=== PATIENT | male | born 2005 | race Two or more races ===

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

== ENCOUNTER 2025-01-25 10:25 | Outpatient (OUT) | payer OTHER, SELFPAY ==
--- OUTSIDE RECORDS SUMMARY | 2025-01-25 10:30 | XMS_ITS | Clinical Summary ---
Author Organization [facility] Healthcare Address [address] [place] [address] Care Team Providers Care Health Care Recruiter Name Role Phone Karlie Bianchi MD Primary Care Provider [phone] Allergies No known active allergies Medications tiZANidine (Zanaflex) 2 MG tabletIndication s:Chronic tension-type headache, not intractable Take 1 tablet (2 mg) by mouth Daily 30 tablet 2 10/26/2024 Active Encounters Date Type Department Care Team Description 11/17/2024 Refill [facility] [place] [phone] Leon Ray DO Chronic tension-type headache, not intractable 10/26/2024 9:00 AM EDT Office Visit [facility] [place] [phone] Leon Ray DO Chronic tension-type headache, not intractable (Primary Dx) 10/26/2024 Bamboo flowsheet [facility] [address] [place] [phone] Leon Ray DO from Last 3 Months Social History Tobacco Use Types Packs/Day Years Used Date Smoking Tobacco: Never Assessed Sex and Gender Information Value Date Recorded Sex Assigned at Not on file Legal Sex Male 6:38 PM EDT Gender Identity Not on file Sexual Orientation Not on file Last Filed Vital Signs Vital Sign Reading Time Taken Comments Blood Pressure 110/72 10/26/2024 9:00 AM EDT Pulse 59 10/26/2024 9:00 AM EDT Temperature - - Respiratory Rate - - Oxygen Saturation 96% 10/26/2024 9:00 AM EDT Inhaled Oxygen Concentration - - Weight 82.6 kg (182 lb) 10/26/2024 9:00 AM EDT Height - - Body Mass Index - - Plan of Treatment Health Maintenance Due Date Last Done Comments Influenza Vaccine (#1) 2025 07/18/2006, 2005 Insurance [employer] Care Teams Health Care Recruiter Relationship Specialty Start Date End Date Karlie Bianchi MD [address] [place] [phone] PCP - General Family Medicine 09/08/24
--- NOTE | 2025-01-25 10:45 | ECG_ITS ---
[facility] Test Date: 2025-01-25 Pat Name: ODILIA RICO Department: Room: - Gender: Male Video Coordinator: : 2005 Requested By: [id number] Order Number: [id number] Reading MD: BAHMAN KRAUSE Measurements Intervals [place] Rate: 64 P: 54 MO: 143 QRS: 91 QRSD: 102 T: 41 QT: 355 QTc: 367 Interpretive Statements SINUS RHYTHM BORDERLINE RIGHT AXIS DEVIATION [QRS AXIS > 90] EARLY REPOLARIZATION [ST ELEVATION WITH NORMALLY INFLECTED T WAVE] NONSPECIFIC T-WAVE ABNORMALITY No previous ECG available for comparison Electronically Signed On 01-28-2025 9:44:29 EDT by BAHMAN KRUASE
--- OUTSIDE RECORDS SUMMARY | 2025-01-25 10:46 | XMS_ITS | CCD ---
Author Organization [facility] Care Team Providers Care Construction Helper Name Role Phone DR KARLIE BIANCHI Admitting Unavailable STAN, DR KARLIE Acevedo Attending Unavailable STAN, DR KARLIE Acevedo Primary Care Unavailable DR KARLIE BIANCHI Consulting Unavailable AICHHOLZ, FACILITY MAINTENANCE HELPER ANGEL Admitting Unavailable AICHHOLZ, FACILITY MAINTENANCE HELPER ANGEL Attending Unavailable STAN, DR KARLIE Acevedo Primary Care Unavailable AICHHOLZ, FACILITY MAINTENANCE HELPER ANGEL Consulting Unavailable AICHHOLZ, FACILITY MAINTENANCE HELPER ANGEL Admitting Unavailable AICHHOLZ, FACILITY MAINTENANCE HELPER ANGEL Attending Unavailable STAN, DR KARLIE Acevedo Primary Care Unavailable STAN, DR KARLIE Acevedo Admitting Unavailable STAN, DR KARLIE Acevedo Attending Unavailable STAN, DR KARLIE Acevedo Primary Care Unavailable Karlie Bianchi Unavailable Daily Nagel Unavailable Karlie Bianchi MD Primary Care Provider MAMIE RAY Attending Unavailable KARLIE BIANCHI Referring Unavailable Marin LAU-HYDROLOGIC ENGINEER-Elif Soto Attending Provider Karlie Bianchi MD Primary Care Provider [phone] Karlie Bianchi MD Attending Provider [phone] Allergies Allergy Classification Reported Allergen(s) Allergy Type Date of Onset Reaction(s) Facility (2 sources) patient allergy list reviewed by nurse or physicia Propensity to adverse reactions 9 Comment:Done [facility] Other (2 sources) Allergies Reconciled Propensity to adverse reactions Unknown [facility] Other Medications Current Medications Medication Drug Class(es) Dates Sig (Normalized) Sig (Original) amitriptyline hydrochloride 10 mg oral tablet (2 sources) Tricyclic Antidepressant Start: 01-10-2025 take 1 tablet by mouth once daily at bedtime Amitriptyline 10 mg tablet Active 10 MG PO Daily at bedtime January 10, 2025 12:00am Complies with drug therapy azithromycin 250 mg oral tablet (1 source) [...] Orally daily for 30 days November, Active tiZANidine 4 mg oral tablet (5 sources) Central alpha-2 Adrenergic Agonist Start: 01-24-2025 take 1 tablet by mouth every eight hours as needed Tizanidine 4 mg tablet Active 4 MG PO Every 8 hours as needed January 24, 2025 12:00am Complies with drug therapy Start: 10-26-2024 End: 01-24-2025 Tizanidine 2 mg tablet Disco ntinued 2 MG PO January 10, 2025 12:00am January 10, 2025 10:26am Completed/Discontinued Medications Medication Drug Class(es) Dates Sig (Normalized) Sig (Original) atomoxetine 25 mg oral capsule (19 sources) Norepinephrine Reuptake Inhibitor Start: 12-24-2023 End: 03-18-2024 take 1 capsule by mouth once daily Atomoxetine 25 mg capsule Discontinued 0 .ROUTE .COMPLEX January 23, 2024 1:03pm March 18, 2024 9:12am TAKE 1 CAPSULE BY MOUTH EVERY DAY Start: 08-28-2023 End: 12-24-2023 take 1 tablet by mouth once daily Atomoxetine 25 mg capsule Discontinued 1 TAB PO Daily August 28, 2023 1:00am December 24, 2023 1:04pm [employer] tablet once a day; Note: Source Status: Continue; Provider: Stan Ziegler ( ) take 1 capsule by [facility] every twenty-four hours Strattera 25 MG 1 tablet once a day Active escitalopram 5 mg oral tablet (5 sources) Serotonin Reuptake Inhibitor Start: 03-18-2024 End: 06-01-2024 take 1 tablet by mouth once daily Escitalopram Oxalate (Lexapro) 5 mg tablet Discontinued 5 MG PO Daily March 18, 2024 12:00am June 01, 2024 10:27am ketoconazole 20 mg/ml medicated shampoo (8 sources) Azole Antifungal Start: 03-17-2024 End: 06-01-2024 Ketoconazole 2 % shampoo Discontinued TOPICAL March 17, 2024 12:00am June 01, 2024 10:27am [employer]: APPLY TO AFFECTED AREA THREE TIMES A WEEK; Note: Source Status: Start; Refills: 0; Qty: 120 Milliliter; Provider: Stan Ziegler ( ) Start: 10-25-2022 Ketoconazole 2 % 1 application Externally 3x/week for 28 days Oct, Active Ketoconazole 2 % APPLY TO AFFECTED AREA 3 TIMES A WEEK for 28 Active Ketoconazole 2 % APPLY TO AFFECTED AREA 3 TIMES A WEEK for 28 Active meloxicam 15 mg oral tablet (3 sources) Nonsteroidal Anti-inflammatory Drug Start: 09-02-2024 End: 01-10-2025 take 1 tablet by mouth once daily Meloxicam 15 mg tablet Discontinued 15 MG PO Daily September 02, 2024 1:00am January 10, 2025 9:52am traZODone hydrochloride 50 mg oral tablet (7 sources) Serotonin Reuptake Inhibitor Start: 03-17-2024 End: 03-18-2024 take 1 tablet by mouth once daily at bedtime Trazodone 50 mg tablet Discontinued 50 MG PO Daily at bedtime March 17, 2024 12:00am March 18, 2024 9:11am [employer] tablet at bedtime as needed Orally Once a day; Note: Source Status: Start; Provider: Stan Acevedo Start: 07-21-2023 take 1 tablet by yulissa th every twenty-four hours traZODone HCl 50 MG 1 tablet at bedtime as needed Orally Once a day for 30 day(s) Jul, Active Problems Active Problems Problem Classification Problem Date Documented Da te Episodic/Chronic Administrative/social admission (4 sources) Patient encounter status; Translations: [Persons encountering health services in other specified circumstances] 01-10-2025 Episodic Anxiety disorders (14 sources) Generalized anxiety disorder; Translations: [Generalized anxiety disorder] 03-18-2024 Chronic Attention-deficit, conduct, and disruptive behavior disorders (13 sources) Attention deficit hyperactivity disorder; Translations: [Attention-deficit hyperactivity disorder, unspecified type] Onset: 03-30-2015 03-18-2024 Chronic Attention-deficit, conduct, and disruptive behavior disorders (4 sources) Attention-deficit hyperactivity disorder, unspecified type; Translations: [Attention deficit disorder with hyperactivity] Chronic Chronic obstructive pulmonary disease and bronchiectasis (1 source) Bronchitis, not specified as acute or chronic Episodic Fever of unknown origin (7 sources) Fever, unspecified; Translations: [Fever] Onset: 06-13-2021 Episodic Headache; including migraine (10 sources) Tension-type headache; Translations: [Tension-type headache, unspecified, not intractable] 09-02-2024 Chronic Influenza (1 source) Influenza due to other [...] Translations: [Olecranon bursitis, left elbow] Episodic Other connective tissue disease (4 sources) Muscle spasm of cervical muscle of neck; Translations: [Other muscle spasm] 06-01-2024 Episodic Other connective tissue disease (1 source) Other muscle spasm; Translations: [Spasm of muscle] 06-01-2024 Episodic Other gastrointestinal disorders (5 sources) Constipation; Translations: [Constipation, unspecified] 08-28-2023 Episodic Other gastrointestinal disorders (1 source) Constipation, unspecified; Translations: [Constipation, unspecified] 06-01-2024 Episodic Other injuries and conditions due to [...] Observations : NORMAL RESPIRATORY ZACHARY. Normal [facility] Comment on above: Performed By: #### T HRTCX #### [facility] [address] [address] [address] Paloma Roldan Covid-19 PCR (CVDTB)on SARS-CoV-2 (COVID-19) RNA SOHAN+probe Ql (Unsp spec) Not detected Normal NOT DETECTED [facility] Comment on above: Result Comment: This test is not yet approved or cleared by the [place] FDA. When there are no FDA-approved or cleared tests available, and other criteria are met, FDA can make tests available under an emergency access mechanism called an Emergency Use Authorization (EUA). The EUA for this test is supported by the [place] of Health and Human Service's (HHS's) declaration [...] SARS-CoV-2. Performed By: #### C VDTBH #### [facility] [address] [place], [place] [address] Dr. Paloma Roldan Covid-19 PCR (CVDTB)on 05-16 SARS-CoV-2 (COVID-19) RNA SOHAN+probe Ql (Unsp spec) Not detected Normal NOT DETECTED [facility] Comment on above: Result Comment: This test is not yet approved or cleared by the [place] FDA. When there are no FDA-approved or cleared tests available, and other criteria are met, FDA can make tests available under an emergency access mechanism called an Emergency Use Authorization (EUA). The EUA for this test is supported by the [place] of Health and Human Service's (HHS's) declaration [...] consistent with SARS-CoV-2. Performed By: #### C [facility] #### [facility] [address] [place] [address] Dr. Paloma Roldan Vital Signs Date Time Vital Sign Value Performing Clinician Jailenei lity 01-24-2025 14:37-0400 Body height 187.96 cm Karlie Bianchi MD Work Phone: [facility] 01-24-2025 14:37-0400 Body mass index (BMI) [Percentile] Per age and sex 49.6 % Karlie Bianchi MD Work Phone: [facility] 01-24-2025 14:37-0400 Body mass index (BMI) [Ratio] 22.7 kg/m2 Karlie Bianchi MD Work Phone: [facility] 01-24-2025 14:37-0400 Body weight 80.28 kg Karlie Bianchi MD Work Phone: [facility] 01-24-2025 14:37-0400 Diastolic blood pressure 70 mm[Hg] Karlie Bianchi MD Work Phone: [facility] 01-24-2025 14:37-0400 Heart rate 78 /min Karlie Bianchi MD Work Phone: [facility] 01-24-2025 14:37-0400 Systolic blood pressure 109 mm[Hg] Karlie Bianchi MD Work Phone: [facility] 01-10-2025 09:46-0400 Body height 187.96 cm Karlie Bianchi MD Work Phone: [facility] 01-10-2025 09:46-0400 Body mass index (BMI) [Percentile] Per age and sex 49.9 % Karlie Bianchi MD Work Phone: [facility] 01-10-2025 09:46-0400 Body mass index (BMI) [Ratio] 22.7 kg/m2 Karlie Bianchi MD Work Phone: [facility] 01-10-2025 09:46-0400 Body weight 80.28 kg Karlie Bianchi MD Work Phone: [facility] 01-10-2025 09:46-0400 Diastolic blood pressure 70 mm[Hg] Karlie Bianchi MD Work Phone: [facility] 01-10-2025 09:46-0400 Heart rate 55 /min Karlie Bianchi MD Work Phone: [facility] 01-10-2025 09:46-0400 Respiratory rate 16 /min Karlie Bianchi MD Work Phone: [facility] 01-10-2025 09:46-0400 SaO2% (BldA) [Mass fraction] 98 % Karlie Bianchi MD Work Phone: [facility] 01-10-2025 09:46-0400 Systolic blood pressure 110 mm[Hg] Karlie Bianchi MD Work Phone: [facility] 10-26-2024 09:00-0400 Body weight 82.56 kg Christopher Flor DO Work Phone: [facility] 10-26-2024 09:00-0400 Diastolic blood pressure 72 mm[Hg] Christopher Flor DO Work Phone: [facility] 10-26-2024 09:00-0400 Heart rate 59 /min Christopher Flor DO Work Phone: [facility] 10-26-2024 09:00-0400 SaO2% (BldA) [Mass fraction] 96 % Christopher Flor DO Work Phone: [facility] 10-26-2024 09:00-0400 Systolic blood pressure 110 mm[Hg] Christopher Flor DO Work Phone: [facility] 09-02-2024 10:13-0500 Body height 187.96 cm [facility] 09-02-2024 10:13-0500 Body mass index (BMI) [Percentile] Per age and sex 47.2 % [facility] 09-02-2024 10:13-0500 Body mass index (BMI) [Ratio] 22.3 kg/m2 [facility] 09-02-2024 10:13-0500 Body weight 78.92 kg [facility] 09-02-2024 10:13-0500 Diastolic blood pressure 75 mm[Hg] [facility] 09-02-2024 10:13-0500 Heart rate 71 /min [facility] 09-02-2024 10:13-0500 Systolic blood pressure 110 mm[Hg] [facility] 06-01-2024 09:14-0500 Body height 187.96 cm [facility] 06-01-2024 09:14-0500 Body mass index (BMI) [Percentile] Per age and sex 61.8 % [facility] 06-01-2024 09:14-0500 Body mass index (BMI) [Ratio] 23.3 kg/m2 [facility] 06-01-2024 09:14-0500 Body weight 82.55 kg [facility] 06-01-2024 09:14-0500 Diastolic blood pressure 71 mm[Hg] [facility] 06-01-2024 09:14-0500 Heart rate 70 /min [facility] 06-01-2024 09:14-0500 Systolic blood pressure 119 mm[Hg] [facility] 03-18-2024 09:07-0400 Body height 187.96 cm [facility] 03-18-2024 09:07-0400 Body mass index (BMI) [Percentile] Per age and sex 58.6 % [facility] 03-18-2024 09:07-0400 Body mass index (BMI) [Ratio] 22.9 kg/m2 [facility] 03-18-2024 09:07-0400 Body weight 81.19 kg [facility] 03-18-2024 09:07-0400 Diastolic blood pressure 76 mm[Hg] [facility] 03-18-2024 09:07-0400 Heart rate 73 /min [facility] 03-18-2024 09:07-0400 Systolic blood pressure 117 mm[Hg] [facility] 08-28-2023 09:45-0500 Body height 187.96 cm [facility] 08-28-2023 09:45-0500 Body mass index (BMI) [Percentile] Per age and sex 55.5 % [facility] 08-28-2023 09:45-0500 Body mass index (BMI) [Ratio] 22.3 kg/m2 [facility] 08-28-2023 09:45-0500 Body weight 78.92 kg [facility] 08-28-2023 09:45-0500 Diastolic blood pressure 72 mm[Hg] [facility] 08-28-2023 09:45-0500 Heart rate 65 /min [facility] 08-28-2023 09:45-0500 Systolic blood pressure 109 mm[Hg] [facility] 08-21-2023 09:30-0500 Body height 187.96 cm Daily Nagel Other [employer] [facility] [employer] Other 08-21-2023 09:30-0500 Body mass index (BMI) [Ratio] 22.85 kg/m2 Daily Nagel Other [facility] Other 08-21-2023 09:30-0500 Body weight 80.74 kg Daily Nagel Other [facility] Other 08-21-2023 09:30-0500 Diastolic blood pressure 72 mm[Hg] Daily Nagel Other [employer] Other 08-21-2023 09:30-0500 SaO2% (BldA) [Mass fraction] 96 % Daily Nagel Other [facility] [employer] Other 08-21-2023 09:30-0500 Systolic blood pressure 112 mm[Hg] Daily Shona Other [employer] Other 07-21-2023 08:30-0500 Body height 187.96 cm Karlie Bianchi Other [facility] 07-21-2023 08:30-0500 Body mass index (BMI) [Ratio] 22.98 kg/m2 Karlie Bianchi Other [facility] [employer] Other 07-21-2023 08:30-0500 Body weight 81.19 kg Karlie Bianchi Other [facility] 07-21-2023 08:30-0500 Diastolic blood pressure 74 mm[Hg] Karlie Bianchi Other [facility] 07-21-2023 08:30-0500 Systolic blood pressure 116 mm[Hg] Karlie Bianchi Other [facility] 11-13-2022 09:30-0400 Body height 186.69 cm Karlie Bianchi Other [facility] [employer] Other 11-13-2022 09:30-0400 Body mass index (BMI) [Ratio] 22.77 kg/m2 Karlie Bianchi Other [facility] [employer] Other 11-13-2022 09:30-0400 Body weight 79.38 kg Karlie Bianchi Other [facility] Other 11-13-2022 09:30-0400 Diastolic blood pressure 72 mm[Hg] Karlie Bianchi Other [employer] Other 11-13-2022 09:30-0400 SaO2% (BldA) [Mass fraction] 98 % Karlie Bianchi Other [employer] Other 11-13-2022 09:30-0400 Systolic blood pressure 108 mm[Hg] Karlie Bianchi Other [facility] Other 09-04-2022 10:00-0500 Body height 186.69 cm Karlie Bianchi Other [employer] Other 09-04-2022 10:00-0500 Body mass index (BMI) [Ratio] 22.25 kg/m2 Karlie Bianchi Other [facility] Other 09-04-2022 10:00-0500 Body weight 77.57 kg Karlie Bianchi Other [facility] Other 09-04-2022 10:00-0500 Diastolic blood pressure 60 mm[Hg] Karlie Bianchi Other [facility] Other 09-04-2022 10:00-0500 Systolic blood pressure 102 mm[Hg] Karlie Bianchi Other [facility] Other Encounters Encounter Date Encounter Type Care Provider Facility Start: 01-24-2025 End: 01-24-2025 ambulatory Karlie Bianchi MD Work Phone: [facility] Work Phone: Start: 01-24-2025 End: 01-24-2025 Patient encounter procedure Karlie Bianchi MD -[facility] Work Phone: Start: 01-10-2025 End: 01-10-2025 ambulatory Karlie Bianchi MD Work Phone: [facility] Work Phone: Start: 01-10-2025 End: 01-10-2025 Patient encounter procedure Elif Funes RETAIL EVENT AND SALES ASSISTANT-HYDROLOGIC ENGINEER- -[facility] Work Phone: Start: 10-26-2024 End: 10-26-2024 Bamboo flowsheet Christopher Flor DO Work Phone: [facility] Start: 10-26-2024 End: 10-26-2024 Bamboo flowsheet Christopher Flor DO Work Phone: [facility] Start: 10-26-2024 End: 10-26-2024 Office outpatient new 45 minutes Nadeemer Flor DO Work Phone: [facility] Comment on above: Chronic tension-type headache, not intractable (Primary Dx) Start: 10-26-2024 End: 10-26-2024 ambulatory MAMIE RAY Not Available Start: 09-02-2024 End: 09-02-2024 ambulatory [facility] Work Phone: Start: 09-02-2024 End: 09-02-2024 Patient encounter procedure [facility] Work Phone: Start: 06-01-2024 End: 06-01-2024 ambulatory [facility] Work Phone: Start: 06-01-2024 End: 06-01-2024 Patient encounter procedure [facility] Work Phone: Start: 03-18-2024 End: 03-18-2024 ambulatory [facility] Work Phone: Start: 03-18-2024 End: 03-18-2024 Patient encounter procedure [facility] Work Phone: Start: 08-28-2023 End: 08-28-2023 ambulatory [facility] Work Phone: Start: 08-28-2023 End: 08-28-2023 Patient encounter procedure [facility] Work Phone: Start: 08-21-2023 End: 08-21-2023 ambulatory Daily Nagel Other [employer] Other Start: 08-21-2023 Office outpatient visit 15 minutes Daily Nagel [facility] Start: 07-21-2023 End: 07-21-2023 ambulatory Karlie Bianchi Other [facility] Other Start: 07-21-2023 Office outpatient visit 15 minutes Karlie Bianchi [facility] Start: 07-21-2023 End: 07-21-2023 Patient encounter procedure [facility] Work Phone: Start: 06-09-2023 End: 06-09-2023 ambulatory Karlie Bianchi Other [facility] Other Start: 06-09-2023 Telephone encounter Karlie Bianchi [facility] Start: 11-13-2022 End: 11-13-2022 ambulatory Karlie Bianchi Other [facility] Other Start: 11-13-2022 Office outpatient visit 15 minutes Karlie Bianchi [facility] Start: 09-04-2022 End: 09-04-2022 ambulatory Karlie Bianchi Other [facility] Other Start: 09-04-2022 Office outpatient visit 15 minutes Karlie Bianchi [facility] Start: 05-07-2022 End: 05-30-[address] KARLIE BIANCHI Facility:[facility] Start: 05-02-2022 Child health medical examination Karlie Bianchi Other [facility] Other Start: 05-02-2022 Well child visit Karlie Bianchi Other [facility] Other Start: 06-13-2021 End: 06-13-2021 ambulatory MOI TREJO Facility:[facility] Start: 06-12-2021 End: 06-12-[address] KARLIE BIANCHI Facility:[facility] Procedures Date Procedure Procedure Detail Performing Clinician Depression screening Karlie Bianchi Other Plan of Treatment Date Care Activity Detail Author Start: 03-14-2025 Influenza vaccination Influenz a Vaccine (Season Ended) [facility] Start: 01-10-2025 End: 01-10-2025 Patient encounter procedure 01/10/2025 9:40 AM EDT Office Visit [facility] [address] [place] [address] Elif Funes NP [address] [place] [phone] [facility] Start: 10-26-2024 End: 10-26-2024 Patient encounter procedure 10/26/2024 9:00 AM EDT Office Visit [facility] [address] [phone] Mamie Ray DO [address] [place] [id number] Arrived [facility] Comment on above: Arrived EKG 12 channel panel [facility] Immunizations Immunization Date Immunization Notes Care Provider Fa cili 05-05-2021 COVID-19 Vaccine Pfizer - Documentation Purposes Only Karlie Bianchi Other [facility] 07-18-2006 influenza virus vaccine, unspecified formulation Mamie Ray DO Work Phone: [facility] Healthcare Payers Date Payer Category Payer Medicaid (Managed Care) [employer] [id number] 2005 Unknown [id number] 1973 Unknown [id number] 1973 Unknown [id number] 1973 Unknown [id number] 1973 Unknown [id number] 1959 Unknown [id number] 1959 Unknown [id number] Unknown Other1 (STD) [id number] Social History Date Type Detail Facility Unknown if ever smoked [facility] [employer] Other Sex Assigned At [employer] [facility] [employer] Other Start: 2005 Sex Assigned At Male F [facility] Start: 03-18-2024 End: 03-18-2024 Tobacco smoking status DCIS Never smoked tobacco (finding) [facility] Start: 06-01-2024 End: 09-02-2024 Sex Male (finding) [facility] Tobacco smoking status [facility] Tobacco smoking consumption unknown [facility] Start: 2005 Sex assigned at Not on file [facility] Clinical Notes 09-04-2022 to 01-10-2025 Note Date & Type Note Facility 01-10-2025 Evaluation note Diagnosis Onset Date Resolution Encounter prior to initiation of medication acute January 10, 2025 9:41am Chronic tension-type headache, not intractable chronic January 10, 2025 9:41am [facility] Work Phone: 1(221) 760-833504-15-2025 History of Present illness Narrative* Mamie Ray DO - 10/26/2024 9:00 AM EDT Images from the original note were not included. Chief Complaint: tension type headache Subjective Compa Jean, 19 y.o., male Patient presents today for a neurologic consult at the request of Dr. Bianchi for tension type headache. Patient reports he has been having headaches for about 5 months. He reports these are daily. These come on typically in the afternoon. These are located on his forehead and back of the head. At times these can radiate down his neck. He denies any sound sensitivity, nausea, dizziness or imbalance. He does report associated light sensitivity and lightheadedness. He was using tylenol and ibuprofen with little relief. He was prescribed something but he is unsure the name and he stopped taking that. He denies nay imaging of the head in the past. Review of Systems Constitutional: Negative for appetite change, fatigue and fever. Respiratory: Negative for cough, shortness of breath and wheezing. Cardiovascular: Negative for chest pain, palpitations and leg swelling. Gastrointestinal: Negative for abdominal pain, constipation, diarrhea and nausea. Musculoskeletal: Negative for arthralgias, gait problem and myalgias. Neurological: Positive for headaches. Negative for dizziness, tremors and numbness. No past medical history on file. No past surgical history on file. No family history on file. Social History Tobacco Use Smoking status: Not on file Smokeless tobacco: Not on file Substance Use Topics Alcohol use: Not on file Allergies: Patient has no known allergies. Vitals: 10/26/24 0900 BP: 110/72 Pulse: 59 SpO2: 96% There is no height or weight on file to calculate BMI. weight: 182 lb Neurologic exam: Mental status: Awake, alert to person, place and time. Recent and remote memory are intact. Language is fluent without aphasia. Attention and concentration are normal. Fund of knowledge is appropriate for level of education. Cranial nerves: CN II: Visual acuity is normal. Visual amador full to confrontation. CN III, IV, : pupils equal round and reactive to light. Extraocular movements intact. No ptosis present. CN V: Facial sensation is normal. CN VII: Full and symmetric facial movement. CN VIII: Hearing is normal to finger rub bilaterally: CN IX and X: Palate elevates symmetrically. CN XI: Shoulder shrug is normal bilaterally. CN XII: Tongue is midline without atrophy or fasciculation. Motor: RUE Strength deltoid, , biceps , triceps , wrist extensors , wrist flexor , paint roller assembler strength 5/5. LUE Strength deltoid , biceps , triceps , wrist extensors , wrist flexor , paint roller assembler strength 5/5. RLE Strength illopsoas, quadriceps, tibialis anterior, and gastrocnemius strength 5/5. LLE Strength illopsoas, quadriceps, tibialis anterior, and gastrocnemius strength 5/5. Normal tone x4 extremities. Bulk is normal. Sensory: Sensation is intact to light touch throughout Four extremities. Reflexes: RUE biceps reflex 2+ brachioradialis reflex 2+ . LUE biceps reflex 2+ brachioradialis reflex 2+ . RLE knee reflex 2+ . LLE knee reflex 2+ . Miner's sign negative. Coordination: Htimus-ll-cthy testing and rapid alternating movements are normal Gait: Normal Review and summary of old records: Assessment/Plan Diagnoses and all orders for this visit: Chronic tension-type headache, not intractable It is my impression that the patient has headaches. These seem to affect his neck shoulders and sometimes the bilateral frontal head region. He does have some occasional light sensitivity but these really do not appear to be definitively migrainous. He does notice that the muscle tension appears sary a major issue for him. He has trialed some physical therapy without relief. He has trialed meloxicam and Tylenol without relief. He would like to try further intervention as it relates to muscle tension. Examination unremarkable. Plan: Start tizanidine 2 mg 1 tablet p.o. daily p.r.n. muscle tension. We have discussed the side effectsin detail. Patient understands and wishes to proceed. If this is not successful, we may trial a migraine preventative for him. Pt has been fully educated on their diagnosis, lab results, treatment options, follow up plan, and return instructions documented in this encounterFreeman Health [id number] Evaluation note* Diagnosis Onset Date Resolution Status Admit Date ADHD acute March 18, 2024 9:04am Anxiety, generalized acute Sept 2023 9:04am Constipation acute May 9:12am Trapezius muscle spasm acute No vember 2023 9:12am [facility] Work Phone: [phone]) 810-554002-08-2024 Evaluation note* Encounter Date Diagnosis Assessment Notes Treatment Notes Treatment Clinical Notes Aug, Type B influenza (ICD-10 - J10.1) The patient was seen today for ER/Urgent Care follow-up. All available records were reviewed and discussed with the patient. All new medications prescribed were reviewed. Any additional changes are noted above. Course of influenza discussed with patient. Tamiflu discussed with patient and grandmother, that he is out of the window. No work/school/sports 5-7 days due to the highly contagious nature of illness. No school until afebrile/asymptoma tic x24 hours. Discussed supportive therapy with hydration, [...] symptoms. Pt and his grandmother verbalize understanding. 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 Agrees to try trazodone. Jul, ADHD (ICD-10 - F90.9) Pt considering d/c strattera after basketball season if problem w insomnia continues. Otherwise it is helping w his concentration well. [employer] Other 05-03-2023 Evaluation note* Encounter Date Diagnosis Assessment Notes Treatment Notes Treatment Clinical Notes November, ADHD (ICD-10 - F90.9) Agree with stopping strattera as he had significant side effects including anxiety and insomnia. Offered low dose stimulant med as the end of the school year is in 3 weeks. Mom is hesitant to start a controlled substance med, requests a med like strattera. Will start w lowest dose of Intuniv. [employer] Other 02-22-2023 Evaluation note* Encounter Date Diagnosis Assessment Notes Treatment Notes Treatment Clinical Notes Aug, Insomnia disorder related to known [...] should not increase is anxiety or insomnia. [employer] Other Evaluation noteNo InformationNort [employer] Other Evaluation noteNo assessment information available [facility] Work Phone: Evaluation note* Diagnosis Onset Date Resolution Status Admit Date Tension type headache acute Aug 9:57am [facility] Work Phone: Evaluation note* Diagnosis Chronic tension-type headache, not intractable- Primary Chronic tension type headache [facility] Diagnosis Onset Date Resolution Status Admit Date Encounter prior to initiatio n of medication acute January 10, 2025 9:41am Chronic tension-type headach e, not intractable chronic January 10, 2025 9:41am [facility] Work Phone: History general Narrative - Reported* Type Description Date Medical History ADHD Medical History Olecranon bursitis, left elbow Medical History Anxiety, generalized [employer] Other [facility] general Narrative - Reported* Type Description Date Medical History ADHD Medical History Olecranon bursitis, left elbow Medical History Anxiety, generalized Surgical History Problem Title : past surgical history reviewed, Problem Description : past surgical history reviewed, Problem Comment : reviewed - no changes required, Problem Status : Active, [employer] Other [facility] general Narrative - Reported* Type Description Date Medical History ADHD Medical History Olecranon bursitis, left elbow Medical History Anxiety, generalized Surgical History No Surgical history information [employer] Other Reason for referral (narrative)No reason for referral information availableJ.W. [facility] Work Phone: Reoihg for visit Narrative* Consultation (Routine) - Closed Specialty Diagnoses / Procedures Referred By Contzaina t Referred To Contact Neurology Diagnoses Headache, unspecified Tension-type headache, unspecified, not intractable Procedures SD OFFICE/OUTPATIENT NEW LOW MDM 30 MINUTES Karlie Bianchi MD Phone: tel: fax: Mamie Ray, DO [address] [address] Phone: tel: fax: Referral ID Status Reason Start Date Expiration Date V isits Requested Visits Authorized [id number] Closed Consult and Treat 09/07/2024 03/06/2025 1 1 [facility] Summary Purpose Family History No Family History Records FoundNo Family History Records Found Advance Directives Advance Directive Response Recorded Date/ Time Advance Directives No August 8:43am Advance Directive Response Recorded Date/ Time Advance Directives No August 9:43am Chief Complaint and Reason for Visit Chief Complaint Admit Date 2 month f/u January 10, 2025 9:41 am Neuro f/u January 24, 2025 2:13 pm Reason for Visit Admit Date Encounter prior to initiation of medicat ion January 10, 2025 9:41am Chronic tension-type headache, not intra ctable January 10, 2025 9:41am Chief Complaint Anxiety, Insomnia Constipated Chief Complaint Anxiety Chief Complaint Admit Date Anxiety March 18, 2024 9:04am headache, stomach pain June 01 9:12am Reason for Visit Admit Date ADHD March 18, 2024 9:04am Anxiety, generalized March 18, 2024 9:04am Constipation June 01, 2024 9:12am Trapezius muscle spasm June 01 9:12am Chief Complaint Admit Date headache/migraines September 02, 2024 9:57am Reason for Visit Admit Date Tension type headache September 02 9:57am Chief Complaint Admit Date 2 month f/u January 10, 2025 9:41 am Reason for Visit Admit Date Encounter prior to initiation of medicat ion January 10, 2025 9:41am Chronic tension-type headache, not intra ctable January 10, 2025 9:41am Chief Complaint Admit Date 2 month f/u January 10, 2025 9:41 am Neuro f/u January 24, 2025 2:13 pm Additional Source Comments (unrecognized sect ion and content) No Status Records FoundNo Status Records Found INFORMATION SOURCE (unrecogn ized section and content) DATE CREATED AUTHOR 06/05/2022 [facility] DATE CREATED AUTHOR AUTHOR'S ORGANIZ ATION 10/27/2024 [facility] EPIC REASON FOR VISIT (unrecogniz ed section and content) Check UpMedication Discussio nrefillAnxiety, Insomniafever, headache, vomitting, COVID Negative Care Teams (unrecognized sec tion and content) Team Status: Active Member Role Status Dates Karlie Bianchi MD Primary Care Provider Active Team Status: Inactive Member Role Status Dates Karlie Bianchi MD Attending Provider Active St art: July 21, 2023 End: July 21, 2023 Team Status: Inactive Member Role Status Dates Karlie Bianchi MD Primary Care Provide r, Attending Provider Active Start: August 28, 2023 End: August 28, 2023 Team Status: Inactive Member Role Status Dates Karlie Bianchi MD Primary Care Provide r, Attending Provider Active Start: March 18, 2024 End: March 18, 2024 Team Status: Inactive Member Role Status Dates Karlie Bianchi MD Primary Care Provide r, Attending Provider Active Start: June 01, 2024 End: June 01, 2024 Team Status: Inactive Member Role Status Dates Karlie Bianchi MD Primary Care Provide r, Attending Provider Active Start: September 02, 2024 End: September 02, 2024 Construction Helper Relationship Specialty Start Date End Date Karlie Bianchi MD [address] [place] [address] PCP - General Family Medicine 09/08/24 Construction Helper Relationship Specialty Start Date End Date Karlie Bianchi MD [address] [place] [id number] PCP - General Family Medicine 09/08/24 Team Status: Inactive Member Role Status Dates MARIA A Perez Attending Provider Active Start: January 10, 2025 End: January 10, 2025 Karlie Bianchi MD Primary Care Provider Active Start: January 10, 2025 End: January 10, 2025 Team Status: Inactive Member Role Status Dates Karlie Bianchi MD Primary Care Provider Active Start: January 24, 2025 End: January 24, 2025 Karlie Bianchi MD Attending Provider Active St art: January 24, 2025 End: January 24, 2025 Goals (unrecognized section and content) Goals may be documented in a n alternate section FOR RECORDS PERTAINING TO PATIENTS WHO ARE [...] BE BASED ON THE PRIMARY CLINICAL RECORDS. [employer] provides no warranty or guarantee of the accuracy or completeness of information in this document.
== END 2025-01-25 10:26 | disposition home or self-care (01) ==
LOC: CR 10:28
PROVIDERS: PCP Family Medicine; Visit Provider Nurse Practitioner Family
DX: Z76.89 Persons encountering health services in other specified circumstances (principal)
CPT/HCPCS: 93005

== ENCOUNTER 2025-01-30 10:41 | Emergency (ER) | payer OTHER, SELFPAY ==
[2025-01-30 10:45] VITALS: BP 147/85; PULSE 84; TEMP 37; O2SAT 100; BMI 22.5
--- OUTSIDE RECORDS SUMMARY | 2025-01-30 10:54 | XMS_ITS | CCD ---
Author Organization [facility] Care Team Providers Care Global Cto Name Role Phone DR KARLIE BIANCHI Admitting Unavailable STAN, DR KARLIE Acevedo Attending Unavailable STAN, DR KARLIE Acevedo Primary Care Unavailable DR KARLIE BIANCHI Consulting Unavailable AICHHOLZ, AGRONOMY SPECIALIST ANGEL Admitting Unavailable AICHHOLZ, AGRONOMY SPECIALIST ANGEL Attending Unavailable STAN, DR KARLIE Acevedo Primary Care Unavailable AICHHOLZ, AGRONOMY SPECIALIST ANGEL Consulting Unavailable AICHHOLZ, AGRONOMY SPECIALIST ANGEL Admitting Unavailable AICHHOLZ, AGRONOMY SPECIALIST ANGEL Attending Unavailable STAN, DR KARLIE Acevedo Primary Care Unavailable STAN, DR KARLIE Acevedo Admitting Unavailable STAN, DR KARLIE Acevedo Attending Unavailable STAN, DR KARLIE Acevedo Primary Care Unavailable Karlie Bianchi Unavailable Daily Nagel Unavailable Karlie Bianchi MD Primary Care Provider [phone] MAMIE RAY Attending Unavailable KARLIE BIANCHI Referring Unavailable Marin LAU-COLORER MACHINE-Elif Soto Attending Provider Karlie Bianchi MD Primary Care Provider Karlie Bianchi MD Attending Provider Allergies Allergy Classification Reported Allergen(s) Allergy Type Date of Onset Reaction(s) Facility (2 sources) patient allergy list reviewed by nurse or physicia Propensity to adverse reactions 9 Comment:Done [employer] Other (2 sources) Allergies Reconciled Propensity to adverse reactions Unknown [employer] Other Medications Current Medications Medication Drug Class(es) [...] Ziegler ( ) take 1 capsule by [facility] every twenty-four hours Strattera 25 MG 1 [...] Observations : NORMAL RESPIRATORY ZACHARY. Normal The [facility] Comment on above: Performed By: #### T HRTCX #### [facility] [address] [address] [address] Paloma Roldan Covid-19 PCR (CVDTB)on SARS-CoV-2 (COVID-19) RNA SOHAN+probe Ql (Unsp spec) Not detected Normal NOT DETECTED [facility] Comment on above: Result Comment: This test is not yet approved or cleared by the [place] FDA. When there are no FDA-approved or cleared tests available, and other criteria are met, FDA can make tests available under an emergency access mechanism called an Emergency Use Authorization (EUA). The EUA for this test is supported by the [place] of Health and Human Service's (HHS's) declaration [...] SARS-CoV-2. Performed By: #### C VDTBH #### [facility] [address] [place], [place] [address] Dr. Paloma Roldan Covid-19 PCR (CVDTB)on 05-16 SARS-CoV-2 (COVID-19) RNA SOHAN+probe Ql (Unsp spec) Not detected Normal NOT DETECTED [facility] Comment on above: Result Comment: This test is not yet approved or cleared by the [place] FDA. When there are no FDA-approved or cleared tests available, and other criteria are met, FDA can make tests available under an emergency access mechanism called an Emergency Use Authorization (EUA). The EUA for this test is supported by the [place] of Health and Human Service's (HHS's) declaration [...] consistent with SARS-CoV-2. Performed By: #### C [facility] #### [facility] [address] [place] [address] Dr. Paloma Roldan Vital Signs Date Time Vital Sign Value Performing Clinician Jailenei lity 01-24-2025 14:37-0400 Body height 187.96 cm Karlie Bianchi MD Work Phone: [facility] 01-24-2025 14:37-0400 Body mass index (BMI) [Percentile] Per age and sex 49.6 % Karlie Bianchi MD Work Phone: [facility] 01-24-2025 14:37-0400 Body mass index (BMI) [Ratio] 22.7 kg/m2 Karlie Bianchi MD Work Phone: [facility] 01-24-2025 14:37-0400 Body weight 80.28 kg Karlie Bianchi MD Work Phone: [facility] 01-24-2025 14:37-0400 Diastolic blood pressure 70 mm[Hg] Karlie Bianchi MD Work Phone: [facility] 01-24-2025 14:37-0400 Heart rate 78 /min Karlie Bianchi MD Work Phone: [facility] 01-24-2025 14:37-0400 Systolic blood pressure 109 mm[Hg] Karlie Bianchi MD Work Phone: [facility] 01-10-2025 09:46-0400 Body height 187.96 cm Karlie Bianchi MD Work Phone: [facility] 01-10-2025 09:46-0400 Body mass index (BMI) [Percentile] Per age and sex 49.9 % Karlie Bianchi MD Work Phone: [facility] 01-10-2025 09:46-0400 Body mass index (BMI) [Ratio] 22.7 kg/m2 Karlie Bianchi MD Work Phone: [facility] 01-10-2025 09:46-0400 Body weight 80.28 kg Karlie Bianchi MD Work Phone: [facility] 01-10-2025 09:46-0400 Diastolic blood pressure 70 mm[Hg] Karlie Bianchi MD Work Phone: [facility] 01-10-2025 09:46-0400 Heart rate 55 /min Karlie Bianchi MD Work Phone: [facility] 01-10-2025 09:46-0400 Respiratory rate 16 /min Karlie Bianchi MD Work Phone: [facility] 01-10-2025 09:46-0400 SaO2% (BldA) [Mass fraction] 98 % Karlie Bianchi MD Work Phone: [facility] 01-10-2025 09:46-0400 Systolic blood pressure 110 mm[Hg] Karlie Bianchi MD Work Phone: [facility] 10-26-2024 09:00-0400 Body weight 82.56 kg Christopher Flor DO Work Phone: [facility] 10-26-2024 09:00-0400 Diastolic blood pressure 72 mm[Hg] Christopher Flor DO Work Phone: [facility] 10-26-2024 09:00-0400 Heart rate 59 /min Christopher Flor DO Work Phone: [facility] 10-26-2024 09:00-0400 SaO2% (BldA) [Mass fraction] 96 % Christopher Flor DO Work Phone: [facility] 10-26-2024 09:00-0400 Systolic blood pressure 110 mm[Hg] Christopher Flor DO Work Phone: [facility] 09-02-2024 10:13-0500 Body height 187.96 cm [facility] 09-02-2024 10:13-0500 Body mass index (BMI) [Percentile] Per age and sex 47.2 % [facility] 09-02-2024 10:13-0500 Body mass index (BMI) [Ratio] 22.3 kg/m2 [facility] 09-02-2024 10:13-0500 Body weight 78.92 kg [facility] 09-02-2024 10:13-0500 Diastolic blood pressure 75 mm[Hg] [facility] 09-02-2024 10:13-0500 Heart rate 71 /min [facility] 09-02-2024 10:13-0500 Systolic blood pressure 110 mm[Hg] [facility] 06-01-2024 09:14-0500 Body height 187.96 cm [facility] 06-01-2024 09:14-0500 Body mass index (BMI) [Percentile] Per age and sex 61.8 % [facility] 06-01-2024 09:14-0500 Body mass index (BMI) [Ratio] 23.3 kg/m2 [facility] 06-01-2024 09:14-0500 Body weight 82.55 kg [facility] 06-01-2024 09:14-0500 Diastolic blood pressure 71 mm[Hg] [facility] 06-01-2024 09:14-0500 Heart rate 70 /min [facility] 06-01-2024 09:14-0500 Systolic blood pressure 119 mm[Hg] [facility] 03-18-2024 09:07-0400 Body height 187.96 cm [facility] 03-18-2024 09:07-0400 Body mass index (BMI) [Percentile] Per age and sex 58.6 % [facility] 03-18-2024 09:07-0400 Body mass index (BMI) [Ratio] 22.9 kg/m2 [facility] 03-18-2024 09:07-0400 Body weight 81.19 kg [facility] 03-18-2024 09:07-0400 Diastolic blood pressure 76 mm[Hg] [facility] 03-18-2024 09:07-0400 Heart rate 73 /min [facility] 03-18-2024 09:07-0400 Systolic blood pressure 117 mm[Hg] [facility] 08-28-2023 09:45-0500 Body height 187.96 cm [facility] 08-28-2023 09:45-0500 Body mass index (BMI) [Percentile] Per age and sex 55.5 % [facility] 08-28-2023 09:45-0500 Body mass index (BMI) [Ratio] 22.3 kg/m2 [facility] 08-28-2023 09:45-0500 Body weight 78.92 kg [facility] 08-28-2023 09:45-0500 Diastolic blood pressure 72 mm[Hg] [facility] 08-28-2023 09:45-0500 Heart rate 65 /min [facility] 08-28-2023 09:45-0500 Systolic blood pressure 109 mm[Hg] [facility] 08-21-2023 09:30-0500 Body height 187.96 cm Daily Nagel Other [employer] [facility] [employer] Other 08-21-2023 09:30-0500 Body mass index (BMI) [Ratio] 22.85 kg/m2 Daily Nagel Other [employer] Other 08-21-2023 09:30-0500 Body weight 80.74 kg Daily Nagel Other [employer] Other 08-21-2023 09:30-0500 Diastolic blood pressure 72 mm[Hg] Daily Nagel Other [employer] Other 08-21-2023 09:30-0500 SaO2% (BldA) [Mass fraction] 96 % Daily Nagel Other [facility] [employer] Other 08-21-2023 09:30-0500 Systolic blood pressure 112 mm[Hg] Daily Shona Other [employer] Other 07-21-2023 08:30-0500 Body height 187.96 cm Karlie Bianchi Other [facility] 07-21-2023 08:30-0500 Body mass index (BMI) [Ratio] 22.98 kg/m2 Karlie Bianchi Other [facility] [employer] Other 07-21-2023 08:30-0500 Body weight 81.19 kg Karlie Bianchi Other [facility] 07-21-2023 08:30-0500 Diastolic blood pressure 74 mm[Hg] Karlie Bianchi Other [facility] 07-21-2023 08:30-0500 Systolic blood pressure 116 mm[Hg] Karlie Bianchi Other [facility] 11-13-2022 09:30-0400 Body height 186.69 cm Karlie Bianchi Other [facility] [employer] Other 11-13-2022 09:30-0400 Body mass index (BMI) [Ratio] 22.77 kg/m2 Karlie Bianchi Other [facility] [employer] Other 11-13-2022 09:30-0400 Body weight 79.38 kg Karlie Bianchi Other [employer] Other 11-13-2022 09:30-0400 Diastolic blood pressure 72 mm[Hg] Karlie Bianchi Other [employer] Other 11-13-2022 09:30-0400 SaO2% (BldA) [Mass fraction] 98 % Karlie Bianchi Other [employer] Other 11-13-2022 09:30-0400 Systolic blood pressure 108 mm[Hg] Karlie Bianchi Other [employer] Other 09-04-2022 10:00-0500 Body height 186.69 cm Karlie Bianchi Other [employer] Other 09-04-2022 10:00-0500 Body mass index (BMI) [Ratio] 22.25 kg/m2 Karlie Bianchi Other [employer] Other 09-04-2022 10:00-0500 Body weight 77.57 kg Karlie Bianchi Other [employer] Other 09-04-2022 10:00-0500 Diastolic blood pressure 60 mm[Hg] Karlie Bianchi Other [employer] Other 09-04-2022 10:00-0500 Systolic blood pressure 102 mm[Hg] Karlie Bianchi Other [employer] Other Encounters Encounter Date Encounter Type Care Provider Facility Start: 01-24-2025 End: 01-24-2025 ambulatory Karlie Bianchi MD Work Phone: [facility] Work Phone: Start: 01-24-2025 End: 01-24-2025 Patient encounter procedure Karlie Bianchi MD -[facility] Work Phone: Start: 01-10-2025 End: 01-10-2025 ambulatory Karlie Bianchi MD Work Phone: [facility] Work Phone: Start: 01-10-2025 End: 01-10-2025 Patient encounter procedure Elif Funes GUARD DRIVER-COLORER MACHINE- -[facility] Work Phone: Start: 10-26-2024 End: 10-26-2024 [...] Not Available Start: 09-02-2024 End: 09-02-2024 ambulatory [facility] Work Phone: Start: 09-02-2024 End: 09-02-2024 Patient encounter procedure [facility] Physician [facility] Work Phone: Start: 06-01-2024 End: 06-01-2024 ambulatory [facility] Work Phone: Start: 06-01-2024 End: 06-01-2024 Patient encounter procedure [facility] Physician [facility] Work Phone: Start: 03-18-2024 End: 03-18-2024 ambulatory [facility] Work Phone: Start: 03-18-2024 End: 03-18-2024 Patient encounter procedure [facility] Physician [facility] Work Phone: Start: 08-28-2023 End: 08-28-2023 ambulatory [facility] Work Phone: Start: 08-28-2023 End: 08-28-2023 Patient encounter procedure [facility] Physician [facility] Work Phone: Start: 08-21-2023 End: 08-21-2023 ambulatory Daily Nagel Other [employer] Other Start: 08-21-2023 Office outpatient visit 15 minutes Daily Nagel [facility] Start: 07-21-2023 End: 07-21-2023 ambulatory Karlie Bianchi Other [employer] Other Start: 07-21-2023 Office outpatient visit 15 minutes Karlie Bianchi [facility] Start: 07-21-2023 End: 07-21-2023 Patient encounter procedure [facility] Work Phone: Start: 06-09-2023 End: 06-09-2023 ambulatory Karlie Bianchi Other [employer] Other Start: 06-09-2023 Telephone encounter Karlie Bianchi [facility] Start: 11-13-2022 End: 11-13-2022 ambulatory Karlie Bianchi Other [employer] Other Start: 11-13-2022 Office outpatient visit 15 minutes Karlie Bianchi [facility] Start: 09-04-2022 End: 09-04-2022 ambulatory Karlie Bianchi Other [employer] Other Start: 09-04-2022 Office outpatient visit 15 minutes Karlie Bianchi [facility] Start: 05-07-2022 End: 05-30-[address] KARLIE BIANCHI Facility:[facility] Start: 05-02-2022 Child health medical examination Karlie Bianchi Other [employer] Other Start: 05-02-2022 Well child visit Karlie Bianchi Other [employer] Other Start: 06-13-2021 End: 06-13-2021 ambulatory MOI TREJO Facility:[facility] Start: 06-12-2021 End: 06-12-[address] KARLIE BIANCHI Facility:[facility] Procedures Date Procedure Procedure Detail Performing Clinician Depression screening Karlie Bianchi Other Plan of Treatment Date Care Activity Detail Author Start: 03-14-2025 Influenza vaccination Influenz a Vaccine (Season Ended) [facility] Start: 01-10-2025 End: 01-10-2025 Patient encounter procedure 01/10/2025 9:40 AM EDT Office Visit [facility] [address] [place] [address] Elif Funes NP [address] [place] [id number] [facility] Start: 10-26-2024 End: 10-26-2024 Patient encounter procedure 10/26/2024 9:00 AM EDT Office Visit [facility] [address] [address] Mamie Ray DO [address] [place] [address] Arrived [facility] Comment on above: Arrived EKG 12 channel panel [facility] Immunizations Immunization Date Immunization Notes Care Provider Fa cili 05-05-2021 COVID-19 Vaccine Pfizer - Documentation Purposes Only Karlie Bianchi Other [facility] 07-18-2006 influenza virus vaccine, unspecified formulation Mamie Ray DO Work Phone: [facility] Healthcare Payers Date Payer Category Payer Medicaid (Managed Care) [employer] [id number] 2005 Unknown [id number] 1973 Unknown [id number] 1973 Unknown [id number] 1973 Unknown [id number] 1973 Unknown [id number] 1959 Unknown [id number] 1959 Unknown [id number] Unknown Other1 (STD) [id number] Social History Date Type Detail Facility Unknown if ever smoked [facility] [employer] Other Sex Assigned At [employer] [facility] [employer] Other Start: 2005 Sex Assigned At Male F [facility] Start: 03-18-2024 End: 03-18-2024 Tobacco smoking status MAIS Never smoked tobacco (finding) [facility] Start: 06-01-2024 End: 09-02-2024 Sex Male (finding) [facility] Tobacco smoking status [facility] Tobacco smoking consumption unknown [facility] Start: 2005 Sex assigned at Not on file N [facility] Clinical Notes 09-04-2022 to 01-10-2025 Note Date & Type Note Facility 01-10-2025 Evaluation note Diagnosis Onset Date Resolution Encounter prior to initiation of medication acute January 10, 2025 9:41am Chronic tension-type headache, not intractable chronic January 10, 2025 9:41am [facility] Work Phone: 1(794) 210-706804-15-2025 History of Present illness Narrative* Mamie Ray [...] , wrist extensors , wrist flexor , electronic device repairer strength 5/5. LUE Strength deltoid , biceps , triceps , wrist extensors , wrist flexor , electronic device repairer strength 5/5. RLE Strength illopsoas, quadriceps, tibialis [...] reflex 2+ . Miner's sign negative. Coordination: [id number] testing and rapid alternating movements are normal [...] and return instructions documented in [facility] [id number] Evaluation note* Diagnosis Onset Date Resolution Status Admit Date ADHD acute March 18, 2024 9:04am Anxiety, generalized acute Sept 2023 9:04am Constipation acute May 9:12am Trapezius muscle spasm acute No vember 2023 9:12am [facility] Work Phone: 1(850) 484-303202-08-2024 Evaluation note* Encounter Date Diagnosis Assessment Notes [...] symptoms. Pt and his grandmother verbalize understanding. 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 Agrees to try trazodone. Jul, ADHD (ICD-10 - F90.9) Pt considering d/c strattera after basketball season if problem w insomnia continues. Otherwise it is helping w his concentration well. [employer] Other 05-03-2023 Evaluation note* Encounter Date Diagnosis [...] Will start w lowest dose of Intuniv. [employer] Other 02-22-2023 Evaluation note* Encounter Date Diagnosis [...] should not increase is anxiety or insomnia. [employer] Other Evaluation noteNo [employer] Other Evaluation noteNo assessment information available [facility] Work Phone: Evaluation note* Diagnosis Onset Date Resolution Status Admit Date Tension type headache acute Aug 9:57am [facility] Work Phone: Evaluation note* Diagnosis Chronic tension-type headache, not intractable- Primary Chronic tension type headache documented [facility] Diagnosis Onset Date Resolution Status Admit Date Encounter prior to initiatio n of medication acute January 10, 2025 9:41am Chronic tension-type headach e, not intractable chronic January 10, 2025 9:41am [facility] Work Phone: History general Narrative - Reported* Type Description Date Medical History ADHD Medical History Olecranon bursitis, left elbow Medical History Anxiety, generalized [employer] Other Hiscekm general Narrative - Reported* Type Description Date Medical History ADHD Medical History Olecranon bursitis, left elbow Medical History Anxiety, generalized Surgical History Problem Title : past surgical history reviewed, Problem Description : past surgical history reviewed, Problem Comment : reviewed - no changes required, Problem Status : Active, [employer] Other Hisrrav general Narrative - Reported* Type Description Date Medical History ADHD Medical History Olecranon bursitis, left elbow Medical History Anxiety, generalized Surgical History No Surgical history information [employer] Other Reason for referral (narrative)No reason for referral [facility] Work Phone: Reicig for visit Narrative* Consultation (Routine) - Closed Specialty Diagnoses / Procedures Referred By Contzaina t Referred To Contact Neurology Diagnoses Headache, unspecified Tension-type headache, unspecified, not intractable Procedures MS OFFICE/OUTPATIENT NEW LOW MDM 30 MINUTES Karlie Bianchi MD Phone: tel: fax: Mamie Ray, DO [address] [address] Phone: tel: fax: Referral ID Status Reason Start Date Expiration Date V isits Requested Visits Authorized [id number] Closed Consult and Treat 09/07/2024 03/06/2025 1 [...] and content) DATE CREATED AUTHOR 06/05/2022 [facility] DATE CREATED AUTHOR AUTHOR'S ORGANIZ ATION 10/27/2024 [facility] dical Specialists EPIC REASON FOR VISIT (unrecogniz [...] September 02, 2024 End: September 02, 2024 Global Cto Relationship Specialty Start Date End Date Karlie Bianchi MD [address] [place] [address] PCP - General Family Medicine 09/08/24 Global Cto Relationship Specialty Start Date End Date Karlie Bianchi MD [address] [place] [id number] PCP - General Family Medicine 09/08/24 Team [...] BE BASED ON THE PRIMARY CLINICAL RECORDS. [employer] provides no warranty or guarantee of the accuracy or completeness of information in this document.
--- NOTE | 2025-01-30 11:01 | CT_ITS ---
The [address] [address] Patient Name: ODILIA RICO MRN: [id number] date: 2005 Sex: M Assigned Patient Location: ED.MAIN Current Patient Location: ED.MAIN Accession/Order Number: [id number] Exam Date: 01/30/2025 11:42 Report Date: 01/30/2025 11:45 At the request of: ADARSH PAN MD Procedure: CT head/brain wo con CT BRAIN WITHOUT CONTRAST: CLINICAL HISTORY: headache severe COMPARISON: 01/19/2025 TECHNIQUE: Contiguous axial unenhanced images were obtained through the brain. This CT exam was performed using one or more following dose reduction techniques: Automated exposure control, adjustment of the mA and/or kV according to patient size, or use of iterative reconstruction technique. FINDINGS: There is no evidence of midline shift, intra or extra-axial fluid collection, hemorrhage or CT evidence of acute large vascular distribution stroke. Visualized intraorbital contents appear unremarkable. Visualized paranasal sinuses are clear. The surrounding soft tissues are normal. CT/CT head/brain wo con IMPRESSION: NO ACUTE INTRACRANIAL ABNORMALITY. Impression dictated by: Sanchez Clayton M.D. 01/30/2025 11:45 AM Dictation Location: [place] [address] Electronically authenticated by: [id number] Date: 01/30/2025 11:45
[2025-01-30] MEDS: ORPHENADRINE 60 MG/2 ML VIAL IM (11:12)
[2025-01-30] MEDS: KETOROLAC TROMETHAMINE 30 MG/ML VIAL IM (11:12)
--- NOTE | 2025-01-30 14:12 | ED.GENADUL1 ---
HPI HPI - General Adult General Chief complaint: Headache Stated complaint: HEADACHE, NECK AND BACK TENSION & TIGHTNESS Time Seen by Provider: 01/30/25 11:01 Source: patient Mode of arrival: walk-in Limitations: no limitations History of Present Illness HPI narrative: Patient was evaluated by neurology recently for headache is coming to the ER after the patient headache continued that been going on at least for the last 3 months, the headache is frontal and at the posterior aspect of the head as well mostly the occipital area, he mentioned that sometimes he feels that he have neck spasm, the patient denies any other complaints of numbness tingling or any weakness in the upper or lower extremities The patient was supposed to be starting taking amitriptyline but she did not take it yet except for 1 dose because he was waiting to see with the EKG that he had in his doctor's office was like Related Data Home Medications �Medication �Instructions �Recorded �Confirmed ketoconazole 2 % shampoo 1 applic topical .TIDWEEKLY 08/30/23 08/30/23 amitriptyline 10 mg tablet 10 mg PO HS 01/30/25 01/30/25 Previous Rx's �Medication �Instructions �Recorded diclofenac sodium 75 mg 75 mg PO BID PRN pain #20 tabs 01/30/25 tablet,delayed release orphenadrine citrate 100 mg 100 mg PO .qhs PRN muscle spasm 01/30/25 tablet,extended release #10 tabs Allergies Allergy/AdvReac Type Severity Reaction Status Date / Time No Known Drug Allergies Allergy Verified 01/30/25 10:45 Opioid HPI Opioid Management Most Recent Opioid Data: Last Pain Scale 7 Today, 10:45 Review of Systems ROS Status of ROS 10 or more systems reviewed and unremarkable except as noted in history and below PFSH PFSH Social History Smoking status: Never smoker Little interest or pleasure in doing things: not at all Feeling down, depressed, or hopeless: not at all Exam Narrative Exam Narrative: Nurses notes and vital signs reviewed and patient is not hypoxic. General: Well-appearing and in no apparent distress. Skin: Warm, dry, no pallor noted. No rash. Head: Normocephalic, atraumatic. There is tenderness in the posterior aspect mostly the occipital area no tenderness in the neck area mostly the intervertebral line or any paraspinal muscle cervical level tenderness Neck: Supple, non-tender. Eye: Pupils are equal, round and EOMI. No scleral icterus. Ears, Nose, Mouth, and Throat: TM are clear, no nasal mucosal hypertrophy. Oral mucosa is moist, no posterior oropharynx erythema, uvula is mid-line Cardiovascular: Regular Rate and Rhythm without murmur, gallop or rub. Respiratory: No accessory muscle use or respiratory distress. Lungs are clear to auscultation, no wheezing, rales or rhonchi Chest Wall: no tenderness Back: No midline thoracic or lumbar vertebral tenderness. No CVA tenderness Musculoskeletal: normal ROM, no calf or popliteal tenderness, no lower extremity edema/swelling GI: Abdomen is soft, non-distended. Normal bowel sounds. No masses appreciated. No tenderness to palpation. No rebound, guarding, or rigidity noted. Neurological: A&O x4. No cranial nerve dysfunction observed. No truncal ataxia. Moves all extremities. Sensation intact. Psychiatric: Cooperative and interactive. Normal mood and affect. Constitutional Vital Signs, click to edit/add: Last Vital Signs Temp 98.6 F 01/30/25 10:45 Pulse 84 01/30/25 10:45 Resp 16 01/30/25 10:45 BP 147/85 H 01/30/25 10:45 Pulse Ox 100 01/30/25 10:45 Course Vital Signs Vital signs: Vital Signs Temperature 98.6 F 01/30/25 10:45 Pulse Rate 84 01/30/25 10:45 Respiratory Rate 16 01/30/25 10:45 Blood Pressure 147/85 H 01/30/25 10:45 Pulse Oximetry 100 01/30/25 10:45 Temperature 98.6 F 01/30/25 10:45 Pulse Rate 84 01/30/25 10:45 Respiratory Rate 16 01/30/25 10:45 Blood Pressure 147/85 H 01/30/25 10:45 Pulse Oximetry 100 01/30/25 10:45 Medical Decision Making MDM Narrative Medical decision making narrative: The patient had a CT head done as per the request of his grandmother as well as her concern and with the fact that he had the symptoms for the last 3 months it was evaluated concern The patient CT head showed no acute pathology He was treated in the ER with Toradol and Norflex after which he was feeling better Patient pain is mostly secondary to tension headache he was instructed about continuing Voltaren and Norflex when getting discharged he was not taking his tizanidine and his Mobic correctly and I think that was the reason for the patient headache to continue The patient also to continue having some stretching for his neck muscles and make sure that he is not in the same position especially that he mentioned that he plays with his phone a lot for a long time without stretching The patient is to follow up with primary care physician in next 2-3 days or to return to the emergency department should any of the signs or symptoms worsen or new symptoms develop. The patient agrees with the following Diagnosis and Treatment plan and the patient will be discharged home. Discharge Plan Discharge Chief Complaint: Headache Clinical Impression: Tension headache Patient Disposition: Home, Self-Care Time of Disposition Decision: 12:14 Condition: Good Prescriptions / Home Meds: New orphenadrine citrate 100 mg tablet extended release 100 mg PO .qhs PRN (Reason: muscle spasm) Qty: 10 0RF diclofenac sodium 75 mg tablet,delayed release (DR/EC) 75 mg PO BID PRN (Reason: pain) Qty: 20 0RF Discontinued meloxicam 15 mg tablet 15 mg PO DAILY tizanidine 4 mg tablet 4 mg PO Q6H PRN (Reason: muscle spasticity) No Action ketoconazole 2 % shampoo 1 applic TOPICAL .TIDWEEKLY amitriptyline 10 mg tablet 10 mg PO HS Print Language: Danish Instructions: Tension Headache (ED) Referrals: Karlie Bianchi MD [Primary Care Provider, Family Practice] - 1 week Discharge Date/Time: 01/30/25 12:22
== END 2025-01-30 12:22 | disposition home or self-care (01) ==
PROVIDERS: Emergency Provider Emergency Medicine; PCP Family Medicine
DX: G44.209 Tension-type headache, unspecified, not intractable (principal)
CPT/HCPCS: 70450; 96372; 99284; J1885; J2360

== ENCOUNTER 2025-02-16 12:52 | Outpatient (OUT) | payer OTHER, SELFPAY ==
--- OUTSIDE RECORDS SUMMARY | 2025-02-16 07:35 | XMS_ITS | Continuity of Care Document ---
Author Organization [facility] Address [address] [place] [address] Phone Care Team Providers Care Bartacker Name Role Phone Elif Funes Attending Provider + Karlie Bianchi MD Primary Care Provider Karlie Bianchi MD Attending Provider Care Teams Patient Care Team Team Status: Active Member Role Status Dates Karlie Bianchi MD Primary Care Provider Active Visit Care Team Team Status: Inactive Member Role Status Dates MARIA A Perez Attending Provider Active Start: January 10, 2025 End: January 10, 2025 Karlie Bianchi MD Primary Care Provider Active Start: January 10, 2025 End: January 10, 2025 Visit Care Team Team Status: Inactive Member Role Status Dates Karlie Bianchi MD Primary Care Provider Active Start: January 24, 2025 End: January 24, 2025 Karlie Bianchi MD Attending Provider Active St art: January 24, 2025 End: January 24, 2025 Patient Care Team Team Status: Inactive Member Role Status Dates Karlie Bianchi MD Primary Care Provider Active Start: February 16, 2025 End: February 16, 2025 Karlie Bianchi MD Attending Provider Active St art: February 16, 2025 End: February 16, 2025 Chief Complaint and Reason for Visit Chief Complaint Admit Date 2 month f/u January 10, 2025 9:41 am Neuro f/u January 24, 2025 2:13 pm medication questions February 16, 2025 11 :04am Reason for Visit Admit Date Encounter prior to initiation of medicat ion January 10, 2025 9:41am Chronic tension-type headache, not intra ctable January 10, 2025 9:41am Trapezius muscle spasm January 24, 2025 2 :13pm Chronic tension-type headache, not intra ctable January 24, 2025 2:13pm Fatigue February 16, 2025 11: 04am Muscle pain February 16, 2025 11: 04am Trapezius muscle spasm February 16, 2025 11:04am Chronic tension-type headache, not intra ctable February 16, 2025 11:04am Allergies, Adverse Reactions, Alerts Allergen Type Severity Reaction Last Updated Verified Status No Known Allergies Allergy Unknown February 16, 2025 11:1 0am Yes Active Social History Smoking Status Status Start Date End Date Date of Observa tion Never smoked tobacco (finding) March 18, 2024 9:12am Observation Status Observation Response Date of Response Legal Sex Male (finding) Sex Assigned At Male August [birth year] Problems Active Problems Medical Problem Onset Date Status Trapezius muscle spasm Unknown Active Anxiety, generalized Unknown Active Fatigue Unknown Active Muscle pain Unknown Active Tension type headache Unknown Active Encounter prior to initiation of medication Unkn own Active Chronic tension-type headache, not intractable U nknown Active ADHD Unknown Active Constipation Unknown Active Medications Medication Status Dose Units Route Directions Qty Days St art Date Stop Date End Date Instructions Adherence Atomoxetine 25 mg capsule Discont inued 0 .ROUTE .COMPLEX December 24, 2023 1:04pm January 23, 2024 1:03p m TAKE 1 CAPSULE BY MOUTH EVERY DAY Atomoxetine 25 mg capsule Discont inued 0 .ROUTE .COMPLEX January 23, 2024 1:03pm [facility] 2023 9:12a m TAKE 1 CAPSULE BY MOUTH EVERY DAY Amitriptyli ne 10 mg tablet Discont inued 10 MG PO Daily at bedtime 90 90 February 03, 2025 10:05a m Augus t 2024 11:11 am Atomoxetine 25 mg capsule Discont inued 1 TAB PO Daily 2023 1:00am December 24, 2023 1:04p m FreeTextSi tablet once a day; Note: Source Status: Continue; Provider: Tash Ziegler ( ) Trazodone 50 mg tablet Discont inued 50 MG PO Daily at bedtime 2023 12:00a m Septe 2023 9:11a m FreeTextSi tablet at bedtime as needed Orally Once a day; Note: Source Status: Start; Provider: aTsh Acevedo Ketoconazol e 2 % shampoo Discont inued TOPICA L 2023 12:00a m [facility] 2023 10:27 am FreeTextSig: APPLY TO AFFECTED AREA THREE TIMES A WEEK; Note: Source Status: Start; Refills: 0; Qty: 120 Milliliter; Provider: Tash Ziegler ( ) Escitalopra m Oxalate (Lexapro) 5 mg tablet Discont inued 5 MG PO Daily 2023 12:00a m 2023 10:27 am Meloxicam 15 mg tablet Discont inued 15 MG PO Daily 2024 1:00am January 10, 2025 9:52a m Tizanidine 2 mg tablet Discont inued 2 MG PO January 10, 2025 12:00a m January 10, 2025 10:26 am Amitriptyli ne 10 mg tablet Discont inued 10 MG PO Daily at bedtime January 10, 2025 12:00a m February 03, 2025 10:05 am Tizanidine 4 mg tablet Discont inued 4 MG PO Every 8 hours as needed January 24, 2025 12:00a m Augus t 2024 11:11 am Escitalopra m Oxalate (Lexapro) 5 mg tablet Discont inued 5 MG PO Daily February 16, 2025 12:00a m Augus t 2024 11:24 am Escitalopra m Oxalate (Lexapro) 5 mg tablet Active 5 MG PO Daily February 16, 2025 11:24a m Complies with drug therapy Immunizations Immunization Event Date Not Given Reason Dose Number Reservations And Ticketing Agent Lot Number Vaccine Information Statement (VIS) Detail Administration Location COVID-19 Sharyn Smalls (Vision 360 Degres (V3D)) May 05, 2021 Vital Signs Vital Reading Result Reference Range Collection Date/Time Height 74 [in_i] January 10, 2025 9:46am Weight 80.28 kg January 10, 2025 9:46am Heart Rate 55 /min 60-100 January 10, 2025 9:46am Respiratory rate 16 /min 12-24 January 10, 2025 9:46am Oxygen saturation by Pulse oximetry 98 % 95-100 January 10, 2025 9:46 am BP Systolic 110 mm[Hg] 100-140 January 10, 2025 9:46am BP Diastolic 70 mm[Hg] 60-100 January 10, 2025 9:46am BMI (Body Mass Index) 22.7 kg/m2 December 142024 9:46am Body mass index (BMI) [Percentile] Per age and sex 49.9 % Normal or healthy weight; 5th to 85th percentile January 10, 2025 9:46am Height 74 [in_i] January 24, 2025 2:37pm Weight 80.28 kg January 24, 2025 2:37pm Heart Rate 78 /min 60-100 January 24, 2025 2:37pm BP Systolic 109 mm[Hg] 100-140 January 24, 2025 2:37pm BP Diastolic 70 mm[Hg] 60-100 January 24, 2025 2:37pm BMI (Body Mass Index) 22.7 kg/m2 January 112024 2:37pm Body mass index (BMI) [Percentile] Per age and sex 49.6 % Normal or healthy weight; 5th to 85th percentile January 24, 2025 2:37pm Height 74 [in_i] February 16 11:08am Weight 79.83 kg February 16 11:08am Heart Rate 79 /min 60-100 February 16 11:08am BP Systolic 119 mm[Hg] 100-140 February 16 11:08am BP Diastolic 78 mm[Hg] 60-100 February 16 11:08am BMI (Body Mass Index) 22.6 kg/m2 February 16, 2025 11:08am Body mass index (BMI) [Percentile] Per age and sex 47.9 % Normal or healthy weight; 5th to 85th percentile February 16, 2025 11:08am Advance Directives Advance Directive Response Recorded Date/ Time Advance Directives No August 9:43am Insurance Providers Guarantor Compa Jean , Gerard Address [address] [place] [address] Contact Info. Home Phone: Payer Policy Id Subscriber's Name Subscriber Id Effectiv e Date Expiration Date [place] [employer] [id number] Gerard Larose [id number] Encounters Encounter Location(s) Arrival/Admit Date Discharge/Depart Date Provider(s) Departed Physician/Prov ider Office Visit -[facility] Neurology January 10, 2025 9:41am January 10, 2025 10:26am Elif Funes APRN-JANES-Brittany Departed Physician/Prov ider Office Visit -[facility] January 24, 2025 2:13pm January 24, 2025 3:32pm Karlie Bianchi MD Departed Physician/Prov ider Office Visit -[facility] February 16, 2025 11:04am February 16, 2025 11:34am Karlie Bianchi MD Recent Diagnosis Onset Date Admit Date Encounter prior to initiation of medication Unkn own January 10, 2025 9:41am Chronic tension-type headache, not intractable U nknown January 10, 2025 9:41am Trapezius muscle spasm Unknown January 2:13pm Chronic tension-type headache, not intractable U nknown January 24, 2025 2:13pm Fatigue Unknown February 16, 2025 11:04am Muscle pain Unknown February 16, 2025 11:04am Trapezius muscle spasm Unknown February 11:04am Chronic tension-type headache, not intractable U nknown February 16, 2025 11:04am Assessments Diagnosis Onset Date Resolution Status Admit Date Encounter prior to initiatio n of medication acute January 10, 2025 9:41am Chronic tension-type headach e, not intractable chronic January 10, 2025 9:41am Trapezius muscle spasm acute Ju 2024 2:13pm Chronic tension-type headach e, not intractable chronic January 24, 2025 2:13pm Fatigue acute February 16 11:04am Muscle pain acute February 16, 025 11:04am Trapezius muscle spasm acute Au 2024 11:04am Chronic tension-type headach e, not intractable chronic February 16, 2025 11:04am Plan of Treatment Author Elif Funes [facility] Authored January 10, 2025 2:30 pm Mr. Jean is a 19-year-old male with a past medical history of anxiety and ADHD. It is my impression that the patient likely has tension-type headaches which could be aggravated by stress and less than optimal sleep quality. He reports chronic daily headaches which are bilateral, pressure-like in quality, and moderate intensity. These are not positional. They can sometimes be associated with posterior neck and shoulder tension. They are not accompanied by typical migrainous features of photophobia, phonophobia, nausea, or vomiting. The patient has tried and failed OTC Tylenol, meloxicam, low dose tizanidine, and physical therapy (ineffective) for his symptoms without success. He denies red flag symptoms. His neurologic examination is unremarkable today, and no focal neurologic deficits are identified. He would like to try an alternative medication to help improve management. PLAN: - Stop tizanidine - Start amitriptyline 10 mg by mouth daily at bedtime (this may provide benefit for headache prevention, anxiety, and sleep). I counseled the patient on possible adverse effects of this medication including but not limited to HE[employer] ASSOCIATE effects, cardiovascular effects, and increased risk of suicidal ideations. He verbalized understanding and wishes to proceed. He understands to notify our office promptly if he develops any suicidal thoughts or adverse reactions while taking the medication. He denies any known history of cardiac arrhythmia or dysfunction - I counseled the patient on ensuring adequate hydration, adequate sleep, stress management, and regular physical exercise as tolerated - Sleep hygiene measures - I do not believe neuroimaging is indicated at this time. I would consider this in the future should the patient develop new or worsening symptoms or should he fail to have a positive response to treatment Plan to start amitriptyline. PLAN: - Check ECG Diagnosis and treatment plan discussed in detail. The patient verbalizes understanding and wishes to proceed. All questions answered. Author Karlie Bianchi [facility] Authored January 31, 2025 10:3 5am Prescriptions reviewed. Pt a grees to PT. Order printed and given. Gave him the EKG order, recommended he go over to [facility] and complete it right now. Reviewed treatment plan from Neurology. Answered questions about prescriptions. Followup w their office as scheduled. They were notified of his Urgent Care visit and present prescriptions. Future Tests Future scheduled test information is unavailable Pending Tests Test Name Ordered Date Scheduled Date ECG 12 lead ECG January 10, 2025 10:25am Future Visits Future appointment information is unavailable Referrals to Other Providers Referral information is unavailable Future Procedures Procedure Name Ordered Date Scheduled Date Basic Metabolic Panel February 16, 2025 11:24am Complete Blood Count Auto Diff February 16, 2025 11:24am Creatine Kinase February 16, 2025 11:24am Thyroid Stim Hormone w/Rflx February 16, 2025 11: 24am Future Medications Future medication information is unavailable Patient Instructions Patient instructions are unavailable
[2025-02-16 13:22] LABS: Hematocrit 48.2 % (42.0-54.0); Hemoglobin 15.7 g/dL (14.0-18.0); Immature Granulocytes Abs Auto 0.01 10^3/uL (0.00-0.03); Immature Granulocytes Pct Auto 0.2 % (0.0-0.5); Lymphocytes Absolute Auto 1.1 10^3/uL (1.2-3.8); Mean Corpuscular HGB Conc 32.6 g/dL (29.9-35.2); Mean Corpuscular Hemoglobin 25.7 pg (25.9-34.0); Mean Corpuscular Volume 78.9 fL (80.0-94.0); Platelet Count 239 10^3/uL (150-450); Red Blood Count 6.11 10^6/uL (4.70-6.10); White Blood Count 5.0 10^3/uL (4.0-11.0)
[2025-02-16 14:28] LABS: Anion Gap 9.9; Blood Urea Nitrogen 10.0 mg/dL (6.4-19.3); Calcium 9.6 mg/dL (8.5-10.1); Carbon Dioxide 32.8 mmol/L (21.0-32.0); Chloride 104 mmol/L (98-107); Creatine Kinase 230 U/L (39-308); Estimated GFR (African America >60 (>=60 mL/min/1.73m^2); Estimated GFR (Non-African Ame >60 (>=60 mL/min/1.73m^2); Glucose 98 mg/dL (74-106); Potassium 4.7 mmol/L (3.5-5.1); Sodium 142 mmol/L (136-145); TSH W/ REFLEX FT4 1.020 uIU/mL (0.516-4.130)
== END 2025-02-16 12:53 | disposition home or self-care (01) ==
LOC: LAB 12:52
PROVIDERS: PCP Family Medicine; Visit Provider Family Medicine
DX: G44.229 Chronic tension-type headache, not intractable (principal); M62.838 Other muscle spasm; R53.83 Other fatigue
CPT/HCPCS: 36415; 80048; 82550; 84443; 85025

== ENCOUNTER 2025-03-11 10:05 | Outpatient (OUT) | payer OTHER, SELFPAY ==
--- NOTE | 2025-03-11 10:13 | XR_ITS ---
The [address] [address] Patient Name: ODILIA RICO MRN: [id number] date: 2005 Sex: M Assigned Patient Location: [facility] Current Patient Location: [facility] Accession/Order Number: [id number] Exam Date: 03/11/2025 10:29 Report Date: 03/11/2025 11:20 At the request of: HAL PIERCE MD Procedure: XR thoracic spine 3V CLINICAL DATA: Neck and back tightness with numbness and tingling at the extremities. No injury. CERVICAL SPINE - 5 views COMPARISON: None AP, lateral, both oblique and odontoid views were obtained. There is straightening of the normal cervical lordosis. No acute fractures or seen. The disc spaces are uniform. The neuroforamen are patent. The atlantoaxial relationship is maintained. There is no prevertebral soft tissue swelling. XR/XR cervical spine 5V IMPRESSION: LOSS OF NORMAL CERVICAL CURVATURE WHICH MAY BE RELATED TO POSITIONING OR MUSCLE SPASM. NO OTHER ACUTE FINDINGS. THORACIC SPINE - 3 views: COMPARISON: None AP, lateral and swimmer's views were obtained. There is no evidence of compression fracture or displacement. The pedicles are intact. The disc spaces are uniform There are no paraspinal soft tissue abnormalities. IMPRESSION: NO ACUTE BONY FINDINGS. LUMBAR SPINE - 2 views COMPARISON: None AP and lateral views were obtained. There is subtle levoscoliotic curvature. Alignment is maintained on the sagittal view. There are no acute compression fractures. There is no disc space narrowing. The SI joints are intact. No paraspinal soft tissue abnormalities are seen. IMPRESSION: SUBTLE SCOLIOTIC CURVATURE. NO ACUTE BONY FINDINGS. Impression dictated by: Jolly Wolff M.D. 03/11/2025 11:20 AM Dictation Location: E96 Electronically authenticated by: [id number] Y Date: 03/11/2025 11:20
--- NOTE | 2025-03-11 10:13 | XR_ITS ---
The [address] [address] Patient Name: ODILIA RICO MRN: [id number] date: 2005 Sex: M Assigned Patient Location: [facility] Current Patient Location: [facility] Accession/Order Number: [id number] Exam Date: 03/11/2025 10:29 Report Date: 03/11/2025 11:20 At the request of: HLA PIERCE MD Procedure: XR thoracic spine 3V CLINICAL DATA: Neck and back tightness with numbness and tingling at the extremities. No injury. CERVICAL SPINE - 5 views COMPARISON: None AP, lateral, both oblique and odontoid views were obtained. There is straightening of the normal cervical lordosis. No acute fractures or seen. The disc spaces are uniform. The neuroforamen are patent. The atlantoaxial relationship is maintained. There is no prevertebral soft tissue swelling. XR/XR lumbar spine 2-3V IMPRESSION: LOSS OF NORMAL CERVICAL CURVATURE WHICH MAY BE RELATED TO POSITIONING OR MUSCLE SPASM. NO OTHER ACUTE FINDINGS. THORACIC SPINE - 3 views: COMPARISON: None AP, lateral and swimmer's views were obtained. There is no evidence of compression fracture or displacement. The pedicles are intact. The disc spaces are uniform There are no paraspinal soft tissue abnormalities. IMPRESSION: NO ACUTE BONY FINDINGS. LUMBAR SPINE - 2 views COMPARISON: None AP and lateral views were obtained. There is subtle levoscoliotic curvature. Alignment is maintained on the sagittal view. There are no acute compression fractures. There is no disc space narrowing. The SI joints are intact. No paraspinal soft tissue abnormalities are seen. IMPRESSION: SUBTLE SCOLIOTIC CURVATURE. NO ACUTE BONY FINDINGS. Impression dictated by: Jolly Wolff M.D. 03/11/2025 11:20 AM Dictation Location: [employer] Electronically authenticated by: [id number] Y Date: 03/11/2025 11:20
--- NOTE | 2025-03-11 10:13 | XR_ITS ---
The [address] [address] Patient Name: ODILIA RICO MRN: [id number] date: 2005 Sex: M Assigned Patient Location: [facility] Current Patient Location: [facility] Accession/Order Number: [id number] Exam Date: 03/11/2025 10:29 Report Date: 03/11/2025 11:20 At the request of: HAL PIERCE MD Procedure: XR thoracic spine 3V CLINICAL DATA: Neck and back tightness with numbness and tingling at the extremities. No injury. CERVICAL SPINE - 5 views COMPARISON: None AP, lateral, both oblique and odontoid views were obtained. There is straightening of the normal cervical lordosis. No acute fractures or seen. The disc spaces are uniform. The neuroforamen are patent. The atlantoaxial relationship is maintained. There is no prevertebral soft tissue swelling. XR/XR thoracic spine 3V IMPRESSION: LOSS OF NORMAL CERVICAL CURVATURE WHICH MAY BE RELATED TO POSITIONING OR MUSCLE SPASM. NO OTHER ACUTE FINDINGS. THORACIC SPINE - 3 views: COMPARISON: None AP, lateral and swimmer's views were obtained. There is no evidence of compression fracture or displacement. The pedicles are intact. The disc spaces are uniform There are no paraspinal soft tissue abnormalities. IMPRESSION: NO ACUTE BONY FINDINGS. LUMBAR SPINE - 2 views COMPARISON: None AP and lateral views were obtained. There is subtle levoscoliotic curvature. Alignment is maintained on the sagittal view. There are no acute compression fractures. There is no disc space narrowing. The SI joints are intact. No paraspinal soft tissue abnormalities are seen. IMPRESSION: SUBTLE SCOLIOTIC CURVATURE. NO ACUTE BONY FINDINGS. Impression dictated by: Jolly Wolff M.D. 03/11/2025 11:20 AM Dictation Location: [employer] Electronically authenticated by: [id number] Y Date: 03/11/2025 11:20
--- OUTSIDE RECORDS SUMMARY | 2025-03-11 10:13 | XMS_ITS | CCD ---
Author Organization [facility] Care Team Providers Care Aircraft Detail Draftsperson Name Role Phone DR KARLIE PIERCE Admitting Unavailable STAN, DR KARLIE Acevedo Attending Unavailable STAN, DR KARLIE Acevedo Primary Care Unavailable STAN, DR KARLIE Acevedo Consulting Unavailable AICHHOLZ, VALIDATION TECHNICIAN ANGEL Admitting Unavailable AICHHOLZ, VALIDATION TECHNICIAN ANGEL Attending Unavailable STAN, DR KARLIE Acevedo Primary Care Unavailable AICHHOLZ, VALIDATION TECHNICIAN ANGEL Consulting Unavailable AICHHOLZ, VALIDATION TECHNICIAN ANGEL Admitting Unavailable AICHHOLZ, VALIDATION TECHNICIAN ANGEL Attending Unavailable STAN, DR KARLIE Acevedo Primary Care Unavailable STAN, DR KARLIE Acevedo Admitting Unavailable STAN, DR KARLIE Acevedo Attending Unavailable STAN, DR KARLIE Acevedo Primary Care Unavailable Karlie Pierce Unavailable Daily Nagel Unavailable Karlie Pierce MD Primary Care Provider [phone] MAMIE RAY Attending Unavailable KARLIE PIERCE Referring Unavailable Marin RETAIL SELLING SPECIALIST-COMBUSTION ENGINEER-CElif Attending Provider Karlie Pierce MD Primary Care Provider Karlie Pierce MD Attending Provider KARLIE PIERCE Primary Care Physician Navarro Dixon DO Attending Provider Arabella Reyes Attending Unavailable Arabella Reyes Attending Unavailable Karlie Pierce Attending Unavailable Karlie Pierce Primary Care Unavailable Karlie Pierce Admitting Unavailable Allergies Allergy Classification Reported Allergen(s) Allergy Type Date of Onset Reaction(s) Facility (2 sources) patient allergy list reviewed by nurse or physicia Propensity to adverse reactions 9 Comment:Done [facility] Other (2 sources) Allergies Reconciled Propensity to adverse reactions Unknown [facility] Other Medications Current Medications Medication Drug Class(es) Dates Sig (Normalized) Sig (Original) azithromycin 250 mg oral tablet (1 source) Macrolide Antimicrobial Start: 08-21-2023 Azithromycin 250 MG 2 tablet on the first day, then 1 tablet daily for 4 days Orally Once a day for 5 day(s) Aug, Active escitalopram 5 mg oral tablet (14 sources) Serotonin Reuptake Inhibitor Start: 02-16-2025 End: 02-16-2025 take 1 tablet by mouth once daily Escitalopram Oxalate (Lexapro) 5 mg tablet Active 5 MG PO Daily February 16, 2025 11:24am Complies with drug therapy Start: 03-18-2024 End: 06-01-2024 take 1 tablet by mouth once daily Escitalopram Oxalate (Lexapro) 5 mg tablet Discontinued 5 MG PO Daily March 18, 2024 12:00am June 01, 2024 10:27am 24 hr guanFACINE 1 mg extended release oral tablet (2 sources) Central alpha-2 Adrenergic Agonist Start: 11-13-2022 take 1 mg by mouth once daily Intuniv 1 MG as directed Orally daily for 30 days November, Active sulfamethoxazole 800 mg / trimethoprim 160 mg oral tablet (1 source) Dihydrofolate Reductase Inhibitor Antibacterial, Sulfonamide Antimicrobial Start: 02-02-2025 End: 03-02-2025 Bactrim D.S. 800 mg-160 mg Tab 1 tab(s), Oral, q12hr for 4 week(s), 56 tab(s), Refill(s) 0, [facility]/pharmacy #[id number], 191, cm, 02/02/25 14:18:00 EDT, Height/Length Dosing, 78, kg, 02/02/25 14:18:00 EDT, Weight Dosing Start Date: 02/02/25 Stop Date: 03/02/25 Status: Ordered Quantity: 56.0 Unit: tab(s) Repeat number: 1 Completed/Discontinued Medications Medication Drug Class(es) Dates Sig (Normalized) Sig (Original) amitriptyline hydrochloride 10 mg oral tablet (8 sources) Tricyclic Antidepressant Start: 01-10-2025 End: 02-16-2025 take 1 tablet by mouth once daily at bedtime Amitriptyline 10 mg tablet Discontinued 10 MG PO Daily at bedtime 90 90 February 03, 2025 10:05am February 16, 2025 11:11am atomoxetine 25 mg oral capsule (20 sources) Norepinephrine Reuptake Inhibitor Start: 12-24-2023 End: 03-18-2024 take 1 capsule by mouth once daily Atomoxetine 25 mg capsule Discontinued 0 .ROUTE .COMPLEX 30 January 23, 2024 1:03pm March 18, 2024 9:12am TAKE 1 CAPSULE BY MOUTH EVERY DAY Start: 08-28-2023 End: 12-24-2023 take 1 tablet by mouth once daily Atomoxetine 25 mg capsule Discontinued 1 TAB PO Daily August 28, 2023 1:00am December 24, 2023 1:04pm [employer] tablet once a day; Note: Source Status: Continue; Provider: Stan Ziegler ( ) take 1 capsule by mo [facility] every twenty-four hours Strattera 25 MG 1 tablet once a day Active ketoconazole 20 mg/ml medicated shampoo (11 sources) Azole Antifungal Start: 03-17-2024 End: 06-01-2024 [...] 28 Active meloxicam 15 mg oral tablet (6 sources) Nonsteroidal Anti-inflammatory Drug Start: 09-02-2024 End: 01-10-2025 take 1 tablet by mouth once daily Meloxicam 15 mg tablet Discontinued 15 MG PO Daily September 02, 2024 1:00am January 10, 2025 9:52am tiZANidine 4 mg oral tablet (12 sources) Central alpha-2 Adrenergic Agonist Start: 01-24-2025 End: 02-16-2025 take 1 tablet by mouth every eight hours as needed Tizanidine 4 mg tablet Discontinued 4 MG PO Every 8 hours as needed January 24, 2025 12:00am February 16, 2025 11:11am Start: 10-26-2024 End: 01-24-2025 Tizanidine 2 mg tablet Disco ntinued 2 MG PO January 10, 2025 12:00am January 10, 2025 10:26am traZODone hydrochloride 50 mg oral tablet (10 sources) Serotonin Reuptake Inhibitor Start: 03-17-2024 End: [...] Date Documented Da te Episodic/Chronic Administrative/social admission (10 sources) Patient encounter status; Translations: [Persons encountering health services in other specified circumstances] 01-10-2025 Episodic Anxiety disorders (20 sources) Generalized anxiety disorder; Translations: [Generalized anxiety disorder] 03-18-2024 Chronic Attention-deficit, conduct, and disruptive behavior disorders (17 sources) Attention deficit hyperactivity disorder; Translations: [Attention-deficit [...] [Fever] Onset: 06-13-2021 Episodic Headache; including migraine (20 sources) Tension-type headache; Translations: [Tension-type headache, unspecified, not intractable] 09-02-2024 Chronic Influenza (1 source) Influenza due to other identified influenza virus with other respiratory manifestations Episodic Lymphadenitis (6 sources) Localized enlarged lymph nodes; Translations: [Localized enlarged lymph nodes] Onset: 03-30-2015 Episodic Malaise and fatigue (6 sources) Fatigue; Translations: [Other fatigue] 02-16-2025 Episodic Mycoses (3 sources) Tinea corporis; Translations: [Tinea corporis] Episodic Nausea and vomiting (1 source) Nausea with vomiting, unspecified Episodic Other connective tissue disease (4 sources) Olecranon bursitis, left elbow; Translations: [OLECRANON BURSITIS LEFT ELBOW] Onset: 05-07-2022 Episodic Other connective tissue disease (5 sources) Olecranon bursitis; Translations: [Olecranon bursitis, left elbow] Episodic Other connective tissue disease (13 sources) Muscle spasm of cervical muscle of neck; Translations: [Other muscle spasm] 06-01-2024 Episodic Other connective tissue disease (2 sources) Other muscle spasm; Translations: [Spasm of muscle] Onset: 03-07-2025 06-01-2024 Episodic Other connective tissue disease (6 sources) Muscle pain; Translations: [Myalgia, unspecified site] 02-16-2025 Episodic Other gastrointestinal disorders (8 sources) Constipation; Translations: [Constipation, unspecified] 08-28-2023 Episodic Other gastrointestinal disorders (1 source) Constipation, unspecified; Translations: [Constipation, unspecified] 06-01-2024 Episodic Other injuries and conditions due to external causes (3 sources) History of fall; Translations: [History of falling] Episodic Other male genital disorders (1 source) Male erectile dysfunction, unspecified; Translations: [Erectile dysfunction] Onset: 02-02-2025 Chronic Other skin disorders (3 sources) Folliculitis; Translations: [...] (3 sources) Insomnia; Translations: [Insomnia, unspecified] Episodic Spondylosis; intervertebral disc disorders; other back problems (7 sources) Neck pain; Translations: [Low back pain] 02-02-2025 Episodic Unclassified (3 sources) CONTACT W/AND (SUSP) [...] Results Test Name Value Interpretation Reference Range Facility Laboratory - Chemistry and C hemistry - challengeOrdered By: Navarro Dixon on 02-25-2025 Bilirubin Ql (U) Negative [facility] Glucose (U) [Mass/Vol] Negative [facility] Ketones Ql (U) Negative [facility] pH (U) 8.0 [pH] [facility] Specific gravity (U) [Rel density] 1.010 [facility] Urobilinogen (U) [Mass/Vol] 0.2 mg/dL [facility] Laboratory - Specimen inform ationOrdered By: Navarro Dixon on 02-25-2025 Appearance (U) cloudy [facility] Color (U) yellow [facility] Laboratory - UrinalysisOrder ed By: Navarro Dixon on 02-25-2025 Leukocyte esterase Test strip Ql (U) Negative [facility] Nitrite Ql (U) Negative [facility] Protein Ql (U) + [facility] No Panel InformationOrdered By: Navarro Dixon on 02-25-2025 Urine Occult Blood Negative [facility] Basophils Auto (Bld) [#/Vol] Ordered By: Karlie Pierce on 02-16-2025 Basophils (Bld) [#/Vol] 0.0 10 3/uL 0.0-0.1 [facility] Basophils/100 WBC Auto (Bld) Ordered By: Karlie Pierce on 02-16-2025 Basophils/100 WBC (Bld) 0.8 % 0.2-2.0 [facility] Eosinophils/100 WBC Auto (Bl d)Ordered By: Karlie Pierce on 02-16-2025 Eosinophils/100 WBC (Bld) 3.2 % 0.9-7.0 [facility] Erythrocyte distribution wid th Auto (RBC) [Ratio]Ordered By: Karlie Pierce on 02-16-2025 Erythrocyte distribution width (RBC) [Ratio] 13.3 % 11.0-15.0 [facility] Glomerular filtration rate ( GFR) estimation in non- AmericanOrdered By: Karlie Pierce on 02-16-2025 GFR/1.73 sq M.predicted among non-blacks MDRD (S/P/Bld) [Vol rate/Area] mL/min/{1.73_m2} >=60 mL/min/1.73m 2 [facility] Hematocrit Auto (Bld) [Volum e fraction]Ordered By: Karlie Pierce on 02-16-2025 Hematocrit (Bld) [Volume fraction] 48.2 % 42.0-54.0 [facility] Hemoglobin [Mass/volume] in BloodOrdered By: Karlie Pierce on 02-16-2025 Hemoglobin (Bld) [Mass/Vol] 15.7 g/dL 14.0-18.0 [facility] Laboratory - Chemistry and C hemistry - challengeOrdered By: Karlie Pierce on 02-16-2025 Calcium [Mass/Vol] 9.6 mg/dL 8.5-10.1 [facility] Chloride [Moles/Vol] 104 mmol/L 98-107 [facility] CK [Catalytic activity/Vol] 230 U/L 39-308 [facility] CO2 [Moles/Vol] 32.8 mmol/L High 21.0-32.0 [facility] Creatinine [Mass/Vol] 0.89 mg/dL 0.70-1.30 [facility] GFR/1.73 sq M.predicted MDRD (S/P/Bld) [Vol rate/Area] mL/min/{1.73_m2} >=60 mL/min/1.73m 2 [facility] Glucose [Mass/Vol] 98 mg/dL 74-106 [facility] Potassium [Moles/Vol] 4.7 mmol/L 3.5-5.1 [facility] Sodium [Moles/Vol] 142 mmol/L 136-145 [facility] TSH Qn 1.020 m[IU]/L 0.516-4.130 [facility] Urea nitrogen [Mass/Vol] 10.0 mg/dL 6.4-19.3 [facility] Urea nitrogen/Creatinine [Mass ratio] 11.2 mg/mg [facility] Laboratory - Hematology and Cell countsOrdered By: Karlie Pierce on 02-16-2025 Immature granulocytes/100 WBC (Bld) 0.2 % 0.0-0.5 [facility] Leukocytes [#/volume] correc phuc for nucleated erythrocytes in Blood by Automated counOrdered By: Karlie Pierce on 02-16-2025 WBC corrected for nucl RBC Auto (Bld) [#/Vol] 5.0 10 3/uL 4.0-11.0 [facility] Lymphocytes Auto (Bld) [#/Vo l]Ordered By: Karlie Pierce on 02-16-2025 Lymphocytes (Bld) [#/Vol] 1.1 10 3/uL Low 1.2-3.8 [facility] Lymphocytes/100 WBC Auto (Bl d)Ordered By: Karlie Pierce on 02-16-2025 Lymphocytes/100 WBC (Bld) 22.0 % 20.5-60.0 [facility] MCH Auto (RBC) [Entitic mass ]Ordered By: Karlie Pierce on 02-16-2025 MCH (RBC) [Entitic mass] 25.7 pg Low 25.9-34.0 [facility] MCHC Auto (RBC) [Mass/Vol]Or dered By: Karlie Pierce on 02-16-2025 MCHC (RBC) [Mass/Vol] 32.6 g/dL 29.9-35.2 [facility] MCV Auto (RBC) [Entitic vol] Ordered By: Karlie Pierce on 02-16-2025 MCV (RBC) [Entitic vol] 78.9 fL Low 80.0-94.0 [facility] Monocytes Auto (Bld) [#/Vol] Ordered By: Karlie Pierce on 02-16-2025 Monocytes (Bld) [#/Vol] 0.7 10 3/uL 0.3-0.8 [facility] Monocytes/100 WBC Auto (Bld) Ordered By: Karlie Pierce on 02-16-2025 Monocytes/100 WBC (Bld) 14.6 % High 1.7-12.0 [facility] Neutrophils Auto (Bld) [#/Vo l]Ordered By: Karlie Pierce on 02-16-2025 Neutrophils (Bld) [#/Vol] 3.0 10 3/uL 1.4-6.5 [facility] Neutrophils/100 WBC Auto (Bl d)Ordered By: Karlie Pierce on 02-16-2025 Neutrophils/100 WBC (Bld) 59.2 % 43.0-75.0 [facility] No Panel InformationOrdered By: Karlie Pierce on 02-16-2025 Eosinophils # (Auto) 0.2 10 3/uL 0.0-0.7 [facility] Immature Granulocyte # (Auto) 0.01 10 3/uL 0.00-0.03 [facility] Platelet mean volume Auto (B ld) [Entitic vol]Ordered By: Karlie Pierce on 02-16-2025 Platelet mean volume (Bld) [Entitic vol] 8.7 fL Low 9.5-13.5 [facility] Platelets Auto (Bld) [#/Vol] Ordered By: Karlie iPerce on 02-16-2025 Platelets (Bld) [#/Vol] 239 10 3/uL 150-450 [facility] RBC Auto (Bld) [#/Vol]Ordere d By: Karlie Pierce on 02-16-2025 RBC (Bld) [#/Vol] 6.11 10 6/uL High 4.70-6.10 [facility] Serum or plasma anion gap de terminationOrdered By: Karlie Pierce on 02-16-2025 Anion gap [Moles/Vol] 9.9 mmol/L [facility] Ambulatory Visit Summaryon 0 02-02-2025 Ambulatory Visit Summary Ambulatory Visi t Summary ODILIA JEAN Gerard :2005 Visit Date:02/02/2025 Ambulatory Visit Instructions Your Diagnosis ED (erectile dysfunction) Your Care Team Attending Physician - Arabella Pavon Primary Care Physician - KARLIE PIERCE MD This Is Your Medications List tizanidine (tiZANidine 4 mg Tab) Discharge Vitals Heart Rate (Peripheral) 69 Respiratory Rate 16 Blood Pressure 136/74 Height 191 cm Height 75 in Weight 78 kg Weight 171.96 lb BMI 21.38 What to do next Scheduled Follow-Up Appointments Friday 9:00 AM EDT With: Arabella Pavon Where: [facility] [address] [place] [address]- Medications What How Much When Instructions Unchanged tizanidine (tiZANidine 4 mg Tab) 1 Tablets By Mouth Every 8 hours TAKE 1 TABLET EVERY 6-8 HOURS NEEDED FOR BACK SPASMS. MAY CAUSE SOME DIZZINESS OR DROWSINESS Allergies No active allergies Problems Ongoing - Any problem that you are currently receiving treatment for. Attention deficit hyperactivity disorder Generalized anxiety disorder Neck pain Patient Survey You may receive a survey via text or e-mail asking about your office visit. Please share your experience with us by completing your survey. We appreciate your feedback and thank you for choosing us for your care. Patient Portal You may access all of your results and other medical record information on our secure patient portal. If you are not signed up for this yet, please contact [employer] at [phone] to get signed up today. Language Information Language assistance services are available as needed. Normal [facility] Urology Office/Clinic Noteon 02-02-2025 Urology Office/Clinic Note Urology Office/Clinic Note Chief Complaint ED issues HPI Staff 19 year old male new patient, self referred for ED. Has issues getting an erection. Even when he has an erection, he is still a little soft and has some premature ejaculation. When not erect, it's small x 1 year Hurts when ejaculating and has some pain while urination. Denies visible blood. has some lower abdominal pain bilateral off and on, denies flank pain AMINA: 2 History of Present Illness Staff HPI reviewed and agree. Review of Systems PHQ Score Initial Depression Screen Score: 0 SCORE no fever, chills, malaise, myalgia. no rash/lesions. no chest pain, palpitations, or SOB. no abdominal pain, nausea, vomiting. 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 1. Erectile dysfunction (N52.9: Male erectile dysfunction, unspecified) UA today trace-intact blood only AMINA 2 Pt here today for erectile complaints. Pt reports that about a year ago he was masturbating and felt pain with ejaculation. Pt denies any injury or curvature to penis. Pt does admit that he was masturbating multiple times in a day and sometimes vigorously. Since that time, patient reports pain with erections/ejaculati on, burning with urination. Pt also reports that he has premature ejaculation and his penis is smaller at baseline. Pt denies hematuria or blood in semen. Pt denies ever being sexually active, no concerns for STDs. Pt does report he is able to wake with erections. Pt denies depression, anxiety, heart or vascular disease or DM. Discussed options with patient including long-course antibiotics v scrotal US. Will proceed with antibiotics at this time for possible prostatitis/epididy mitis as this has been ongoing for patient for over a year, is not an acute issue. No suspicion for torsion, PE negative for obvious mass. If painful erection and urination continues after antibiotics, will order scrotal US. -Bactrim DS BID x4 weeks, take with food -NSAIDs for discomfort -Scrotal support -F/U 6 weeks Ordered: E&M of New Patient Moderate 45-59 Min 93014 Urnls Dip Stick Auto w/o Microscopy POC [id number] Orders: sulfamethoxazole-tr imethoprim, 1 tab(s), Oral, q12hr for 4 week(s), 56 tab(s), Refill(s) 0, [id number], 191, cm, 02/02/25 14:18:00 EDT, Height/Length Dosing, 78, kg, 02/02/25 14:18:00 EDT, Weight Dosing Follow-up With When Contact Information Amy MILLER, PHILIP Yuen In 8 weeks Additional Instructions: Patient Education Erectile Dysfunction Total time spent reviewing previous notes/results/exter nal documents, preparing the chart, conducting the encounter with the patient and family, ordering tests/medications, and documenting the encounter was 40 minutes. Problem List/Past Medical History Ongoing Attention deficit hyperactivity disorder Generalized anxiety disorder Neck pain Historical No qualifying data Medications Bactrim D.S. 800 mg-160 mg Tab, 1 tab(s), Oral, q12hr tiZANidine 4 mg Tab, 4 mg= 1 tab(s), Oral, q8hr Allergies No active allergies Social History Alcohol Never., 02/01/2025 Substance Abuse Never., 02/01/2025 Tobacco Never (less than 100 in lifetime) Tobacco Use:. Never Smokeless Tobacco Use:., 02/02/2025 Family History Family history is negative Lab Results Ambulatory Point of Care Results Bilirubin Urine Dipstick: Negative (02/02/25 14:10:00) Blood Urine Dipstick: Trace-intact (02/02/25 14:10:00) Glucose Urine Dipstick: Negative (02/02/25 14:10:00) Ketones Urine Dipstick: Negative (02/02/25 14:10:00) Leukocytes Urine Dipstick: Negative (02/02/25 14:10:00) Nitrite Urine Dipstick: Negative (02/02/25 14:10:00) Protein Urine Dipstick: Trace (02/02/25 14:10:00) Specific [place] Urine Dipstick: 1.020 (02/02/25 14:10:00) Urine Appearance Urine Dipstick: Clear (02/02/25 14:10:00) Urine Color Urine Dipstick: Yellow (02/02/25 14:10:00) Urobilinogen Urine Dipstick: Normal 0.2-1 EU/dl (02/02/25 14:10:00) pH Urine Dipstick: 8.5 (02/02/25 14:10:00) Normal [facility] Comment on above: Result Comment: Elec tronically Signed By: Amy MILLER, Arabella Frias\.br\Date and Time Signed: 02/02/25 16:08 EDT CULTURE THROATon 06-13-2021 CULTURE THROAT Culture Observations: NORMAL RESPIRATORY ZACHARY. Normal [facility] Comment on above: Performed By: #### T HRTCX #### [facility] [address] [address] [address] Paloma Roldan Covid-19 PCR (CVDTB)on SARS-CoV-2 (COVID-19) RNA SOHAN+probe Ql (Unsp spec) Not detected Normal NOT DETECTED [facility] Comment on above: Result Comment: This test is not yet approved or cleared by the [place] FDA. When there are no FDA-approved or cleared tests available, and other criteria are met, FDA can make tests available under an emergency access mechanism called an Emergency Use Authorization (EUA). The EUA for this test is supported by the [place] of Health and Human Service's (HHS's) declaration [...] consistent with SARS-CoV-2. Performed By: #### C VDTB #### [facility] [address] [place] [id number] Paloma Roldan Covid-19 PCR ([facility])on 05-16 SARS-CoV-2 (COVID-19) RNA SOHAN+probe Ql (Unsp spec) Not detected Normal NOT DETECTED [facility] Comment on above: Result Comment: This test is not yet approved or cleared by the [place] FDA. When there are no FDA-approved or cleared tests available, and other criteria are met, FDA can make tests available under an emergency access mechanism called an Emergency Use Authorization (EUA). The EUA for this test is supported by the [place] of Health and Human Service's (HHS's) declaration [...] consistent with SARS-CoV-2. Performed By: #### C VDTB #### [facility] [address] [place] [id number] Paloma Roldan Vital Signs Date Time Vital Sign Value Performing Clinician Faci lity 03-11-2025 07:49-0400 Body height 187.96 cm Karlie Pierce MD Work Phone: [facility] 03-11-2025 07:49-0400 Body mass index (BMI) [Percentile] Per age and sex 51.4 % Karlie Pierce MD Work Phone: [facility] 03-11-2025 07:49-0400 Body mass index (BMI) [Ratio] 22.9 kg/m2 Karlie Pierce MD Work Phone: [facility] 03-11-2025 07:49-0400 Body weight 81.19 kg Karlie Pierce MD Work Phone: [facility] 03-11-2025 07:49-0400 Diastolic blood pressure 68 mm[Hg] Karlie Pierce MD Work Phone: [facility] 03-11-2025 07:49-0400 Heart rate 94 /min Karlie Pierce MD Work Phone: [facility] 03-11-2025 07:49-0400 Respiratory rate 14 /min Karlie Pierce MD Work Phone: [facility] 03-11-2025 07:49-0400 SaO2% (BldA) [Mass fraction] 97 % Karlie iPerce MD Work Phone: [facility] 03-11-2025 07:49-0400 Systolic blood pressure 108 mm[Hg] Karlie Pierce MD Work Phone: [facility] 02-16-2025 11:08-0400 Body height 187.96 cm Karlie Pierce MD Work Phone: [facility] 02-16-2025 11:08-0400 Body mass index (BMI) [Percentile] Per age and sex 47.9 % Karlie Pierce MD Work Phone: [facility] 02-16-2025 11:08-0400 Body mass index (BMI) [Ratio] 22.6 kg/m2 Karlie Pierce MD Work Phone: [facility] 02-16-2025 11:08-0400 Body weight 79.83 kg Karlie Pierce MD Work Phone: [facility] 02-16-2025 11:08-0400 Diastolic blood pressure 78 mm[Hg] Karlie Pierce MD Work Phone: [facility] 02-16-2025 11:08-0400 Heart rate 79 /min Karlie Pierce MD Work Phone: [facility] 02-16-2025 11:08-0400 Systolic blood pressure 119 mm[Hg] Karlie Pierce MD Work Phone: [facility] 01-24-2025 14:37-0400 Body height 187.96 cm Karlie Pierce MD Work Phone: [facility] 01-24-2025 14:37-0400 Body mass index (BMI) [Percentile] Per age and sex 49.6 % Karlie Pierce MD Work Phone: [facility] 01-24-2025 14:37-0400 Body mass index (BMI) [Ratio] 22.7 kg/m2 Karlie Pierce MD Work Phone: [facility] 01-24-2025 14:37-0400 Body weight 80.28 kg Karlie Pierce MD Work Phone: [facility] 01-24-2025 14:37-0400 Diastolic blood pressure 70 mm[Hg] Karlie Pierce MD Work Phone: [facility] 01-24-2025 14:37-0400 Heart rate 78 /min Karlie Pierce MD Work Phone: [facility] 01-24-2025 14:37-0400 Systolic blood pressure 109 mm[Hg] Karlie Pierce MD Work Phone: [facility] 01-10-2025 09:46-0400 Body height 187.96 cm Karlie Pierce MD Work Phone: [facility] 01-10-2025 09:46-0400 Body mass index (BMI) [Percentile] Per age and sex 49.9 % Karlie Pierce MD Work Phone: [facility] 01-10-2025 09:46-0400 Body mass index (BMI) [Ratio] 22.7 kg/m2 Karlie Pierce MD Work Phone: [facility] 01-10-2025 09:46-0400 Body weight 80.28 kg Karlie Pierce MD Work Phone: [facility] 01-10-2025 09:46-0400 Diastolic blood pressure 70 mm[Hg] Karlie Pierce MD Work Phone: [facility] 01-10-2025 09:46-0400 Heart rate 55 /min Karlie Pierce MD Work Phone: [facility] 01-10-2025 09:46-0400 Respiratory rate 16 /min Karlie Pierce MD Work Phone: [facility] 01-10-2025 09:46-0400 SaO2% (BldA) [Mass fraction] 98 % Karlie Pierce MD Work Phone: [facility] 01-10-2025 09:46-0400 Systolic blood pressure 110 mm[Hg] Karlie Pierce MD Work Phone: [facility] 10-26-2024 09:00-0400 Body weight 82.56 kg Christopher Flor DO Work Phone: [facility] 10-26-2024 09:00-0400 Diastolic blood pressure 72 mm[Hg] Christopher Flor DO Work Phone: [facility] 10-26-2024 09:00-0400 Heart rate 59 /min Christopher Flor DO Work Phone: [facility] 10-26-2024 09:00-0400 SaO2% (BldA) [Mass fraction] 96 % Christopher Flor DO Work Phone: [facility] 10-26-2024 09:00-0400 Systolic blood pressure 110 mm[Hg] Christopher Flor DO Work Phone: [facility] 09-02-2024 10:13-0500 Body height 187.96 cm [facility] 09-02-2024 10:13-0500 Body mass index (BMI) [Percentile] Per age and sex 47.2 % [facility] 09-02-2024 10:13-0500 Body mass index (BMI) [Ratio] 22.3 kg/m2 [facility] 09-02-2024 10:13-0500 Body weight 78.92 kg [facility] 09-02-2024 10:13-0500 Diastolic blood pressure 75 mm[Hg] [facility] 09-02-2024 10:13-0500 Heart rate 71 /min [facility] 09-02-2024 10:13-0500 Systolic blood pressure 110 mm[Hg] [facility] 06-01-2024 09:14-0500 Body height 187.96 cm [facility] 06-01-2024 09:14-0500 Body mass index (BMI) [Percentile] Per age and sex 61.8 % [facility] 06-01-2024 09:14-0500 Body mass index (BMI) [Ratio] 23.3 kg/m2 [facility] 06-01-2024 09:14-0500 Body weight 82.55 kg [facility] 06-01-2024 09:14-0500 Diastolic blood pressure 71 mm[Hg] [facility] 06-01-2024 09:14-0500 Heart rate 70 /min [facility] 06-01-2024 09:14-0500 Systolic blood pressure 119 mm[Hg] [facility] 03-18-2024 09:07-0400 Body height 187.96 cm [facility] 03-18-2024 09:07-0400 Body mass index (BMI) [Percentile] Per age and sex 58.6 % [facility] 03-18-2024 09:07-0400 Body mass index (BMI) [Ratio] 22.9 kg/m2 [facility] 03-18-2024 09:07-0400 Body weight 81.19 kg [facility] 03-18-2024 09:07-0400 Diastolic blood pressure 76 mm[Hg] [facility] 03-18-2024 09:07-0400 Heart rate 73 /min [facility] 03-18-2024 09:07-0400 Systolic blood pressure 117 mm[Hg] [facility] 08-28-2023 09:45-0500 Body height 187.96 cm [facility] 08-28-2023 09:45-0500 Body mass index (BMI) [Percentile] Per age and sex 55.5 % [facility] 08-28-2023 09:45-0500 Body mass index (BMI) [Ratio] 22.3 kg/m2 [facility] 08-28-2023 09:45-0500 Body weight 78.92 kg [facility] 08-28-2023 09:45-0500 Diastolic blood pressure 72 mm[Hg] [facility] 08-28-2023 09:45-0500 Heart rate 65 /min [facility] 08-28-2023 09:45-0500 Systolic blood pressure 109 mm[Hg] [facility] 08-21-2023 09:30-0500 Body height 187.96 cm Daily Nagel Other [facility] Other 08-21-2023 09:30-0500 Body mass index (BMI) [Ratio] 22.85 kg/m2 Daily Nagel Other [facility] Other 08-21-2023 09:30-0500 Body weight 80.74 kg Daily Nagel Other [facility] Other 08-21-2023 09:30-0500 Diastolic blood pressure 72 mm[Hg] Daily Nagel Other [facility] Other 08-21-2023 09:30-0500 SaO2% (BldA) [Mass fraction] 96 % Daily Nagel Other [facility] Other 08-21-2023 09:30-0500 Systolic blood pressure 112 mm[Hg] Daily Shona Other [facility] Other 07-21-2023 08:30-0500 Body height 187.96 cm Karlie Pierce Other [facility] 07-21-2023 08:30-0500 Body mass index (BMI) [Ratio] 22.98 kg/m2 Karlie Pierce Other [facility] [employer] Other 07-21-2023 08:30-0500 Body weight 81.19 kg Karlie Pierce Other [facility] 07-21-2023 08:30-0500 Diastolic blood pressure 74 mm[Hg] Karlie Pierce Other [facility] 07-21-2023 08:30-0500 Systolic blood pressure 116 mm[Hg] Karlie Pierce Other [facility] 11-13-2022 09:30-0400 Body height 186.69 cm Karlie Pierce Other [facility] Other 11-13-2022 09:30-0400 Body mass index (BMI) [Ratio] 22.77 kg/m2 Karlie Pierce Other [place] [employer] Other 11-13-2022 09:30-0400 Body weight 79.38 kg Karlie Pierce Other [facility] Other 11-13-2022 09:30-0400 Diastolic blood pressure 72 mm[Hg] Karlie Pierce Other [facility] Other 11-13-2022 09:30-0400 SaO2% (BldA) [Mass fraction] 98 % Karlie Pierce Other [facility] Other 11-13-2022 09:30-0400 Systolic blood pressure 108 mm[Hg] Karlie Pierce Other [facility] Other 09-04-2022 10:00-0500 Body height 186.69 cm Karlie Pierce Other [facility] Other 09-04-2022 10:00-0500 Body mass index (BMI) [Ratio] 22.25 kg/m2 Karlie Pierce Other [facility] Other 09-04-2022 10:00-0500 Body weight 77.57 kg Karlie Pierce Other [facility] Other 09-04-2022 10:00-0500 Diastolic blood pressure 60 mm[Hg] Karlie Pierce Other [facility] Other 09-04-2022 10:00-0500 Systolic blood pressure 102 mm[Hg] Karlie Pierce Other [facility] Other Encounters Encounter Date Encounter Type Care Provider Facility Start: 05-18-2025 ambulatory Arabella Reyes Facility :[facility] Start: 03-11-2025 End: 03-11-2025 ambulatory Karlie Pierce MD Work Phone: [facility] Work Phone: Start: 03-11-2025 End: 03-11-2025 Patient encounter procedure Karlie Pierce MD -[facility] Work Phone: Start: 03-07-2025 ambulatory Karlie Pierce Facility :[facility] Start: 03-07-2025 Registered Recurring Karlie Pierce MD -[facility] Start: 02-25-2025 End: 02-25-2025 ambulatory Karlie Pierce MD Work Phone: [facility] Work Phone: Start: 02-25-2025 End: 02-25-2025 Patient encounter procedure Navarro Dixon DO -[facility] Work Phone: Start: 02-23-2025 Registered Recurring Karlie Pierce MD -[facility] Start: 02-16-2025 End: 02-16-2025 ambulatory Karlie Pierce MD Work Phone: [facility] Work Phone: Start: 02-16-2025 End: 02-16-2025 Patient encounter procedure Karlie Pierce MD -[facility] Work Phone: Start: 02-02-2025 End: 02-02-2025 ambulatory Arabella J Galea Facility:[facility] Start: 02-02-2025 End: 02-02-2025 Patient encounter procedure Arabella J Galea [facility] Start: 01-27-2025 ambulatory Arabella Galea Facility:[facility] Start: 01-24-2025 End: 01-24-2025 ambulatory Karlie Pierce MD Work Phone: [facility] Work Phone: Start: 01-24-2025 End: 01-24-2025 Patient encounter procedure Karlie Pierce MD -[facility] Work Phone: Start: 01-10-2025 End: 01-10-2025 ambulatory Karlie Pierce MD Work Phone: [facility] Work Phone: Start: 01-10-2025 End: 01-10-2025 Patient encounter procedure Elif Funes RETAIL SELLING SPECIALIST-COMBUSTION ENGINEER-C -[facility] Work Phone: Start: 10-26-2024 End: 10-26-2024 Bamboo flowsheet Mamie Ray DO Work Phone: [facility] Start: 10-26-2024 End: 10-26-2024 Bamboo flowsheet Mamie Loomisett DO Work Phone: [facility] Start: 10-26-2024 End: 10-26-2024 Office outpatient new 45 minutes Nadeemvioleta Flor DO Work Phone: [facility] Comment on above: Chronic tension-type headache, not intractable (Primary Dx) Start: 10-26-2024 End: 10-26-2024 ambulatory MAMIE RAY Not Available Start: 09-02-2024 End: 09-02-2024 ambulatory [facility] Work Phone: Start: 09-02-2024 End: 09-02-2024 [facility] Work Phone: Start: 06-01-2024 End: 06-01-2024 ambulatory [facility] Work Phone: Start: 06-01-2024 End: 06-01-2024 Patient encounter procedure [facility] Work Phone: Start: 03-18-2024 End: 03-18-2024 ambulatory [facility] Work Phone: Start: 03-18-2024 End: 03-18-2024 Patient encounter procedure [facility] Work Phone: Start: 08-28-2023 End: 08-28-2023 ambulatory [facility] Work Phone: Start: 08-28-2023 End: 08-28-2023 Patient encounter procedure [facility] Work Phone: Start: 08-21-2023 End: 08-21-2023 ambulatory Daily Nagel Other [facility] Other Start: 08-21-2023 Office outpatient visit 15 minutes Daily Nagel [facility] Start: 07-21-2023 End: 07-21-2023 ambulatory Karlie Pierce Other [facility] Other Start: 07-21-2023 Office outpatient visit 15 minutes Karlie Pierce [facility] Start: 07-21-2023 End: 07-21-2023 Patient encounter procedure [facility] Work Phone: Start: 06-09-2023 End: 06-09-2023 ambulatory Karlie Pierce Other [facility] Other Start: 06-09-2023 Telephone encounter Karlie Pierce [facility] Start: 11-13-2022 End: 11-13-2022 ambulatory Karlie Pierce Other [facility] Other Start: 11-13-2022 Office outpatient visit 15 minutes Karlie Pierce [facility] Start: 09-04-2022 End: 09-04-2022 ambulatory Karlie Pierce Other [facility] Other Start: 09-04-2022 Office outpatient visit 15 minutes Karlie Pierce [facility] Start: 05-07-2022 End: 05-30-[address] KARLIE PIERCE Facility:[facility] Start: 05-02-2022 Child health medical examination Karlie Pierce Other [facility] Other Start: 05-02-2022 Well child visit Karlie Pierce Other [facility] Other Start: 06-13-2021 End: 06-13-2021 ambulatory MOI TREJO Facility:[facility] Start: 06-12-2021 End: 06-12-[address] KARLIE PIERCE Facility:[facility] Procedures Date Procedure Procedure Detail Performing Clinician Depression screening Karlie Pierce Other Plan of Treatment Date Care Activity Detail Author Start: 03-14-2025 Influenza vaccination Influenz a Vaccine (Season Ended) [facility] Start: 01-10-2025 End: 01-10-2025 Patient encounter procedure 01/10/2025 9:40 AM EDT Office Visit [facility] [address] [facility] [address] [place] [phone] Elif Funes NP [address] [place] [phone] [facility] Start: 10-26-2024 End: 10-26-2024 Patient encounter procedure 10/26/2024 9:00 AM EDT Office Visit [facility] [address] [facility] [address] [place] [phone] Mamie Ray DO [address] [place] [id number] Arrived [facility] Comment on above: Arrived EKG 12 channel panel [facility] Patient Education Low back pain in adults [facility] Work Phone: XR Cervical spine 5 Views [facility] XR Lumbar spine 2 or 3 Views [facility] XR Thoracic spine 3 Views [facility] Immunizations Immunization Date Immunization Notes Care Provider Fa cility 05-05-2021 COVID-19 Vaccine Pfizer - Documentation Purposes Only Karlie Pierce Other [facility] 07-18-2006 influenza virus vaccine, unspecified formulation Mamie Ray DO Work Phone: [facility] Payers Date Payer Category Payer Self-pay 2019 Medicaid (Managed Care) [employer] [id number] 2005 Unknown [id number] 2005 Unknown [id number] 2005 Unknown [id number] 1973 Unknown [id number] 1973 Unknown [id number] 1973 Unknown [id number] 1973 Unknown [id number] 1959 Unknown [id number] 1959 Unknown [id number] Medicaid [id number] Unknown Other1 (STD) [id number] Unknown [id number] Social History Date Type Detail Facility Unknown if ever smoked [facility] Other Sex Assigned At [facility] Start: 2005 Sex Assigned At Male [facility] Start: 03-18-2024 End: 02-02-2025 Tobacco smoking status NHIS Never smoked tobacco (finding) [facility] Start: 04-03-2011 End: 06-01-2024 Sex Male (finding) [facility] Tobacco smoking stat us NEIS Tobacco smoking consumption unknown [facility] Start: 2005 Sex assigned at Not on file [facility] Tobacco smoking status Never [facility] Sexual Orientation [facility] Clinical Notes 09-04-2022 to 02-02-2025 Note Date & Type Note Facility 02-02-2025 Hospital Discharg e instructions Patient Education 02/02/2025 16:07:52 Erectile Dysfunction Erectile Dysfunction Erectile dysfunction (ED) is the inability to get or keep an erection in order to have sexual intercourse. ED is considered a symptom of an underlying disorder and is not considered a disease. ED may include: Inability to get an erection. Lack of enough hardness of the erection to allow penetration. Loss of erection before sex is finished. What are the causes? This condition may be caused by: Physical causes, such as: ?Artery problems. This may include heart disease, high blood pressure, atherosclerosis, and diabetes. ?Hormonal problems, such as low testosterone. ?Obesity. ?Nerve problems. This may include back or pelvic injuries, multiple sclerosis, Parkinson's disease, spinal cord injury, and stroke. Certain medicines, such as: ?Pain relievers. ?Antidepressants. ?Blood pressure medicines and water pills (diuretics). ?Cancer medicines. ?Antihistamines. ?Muscle relaxants. Lifestyle factors, such as: ?Use of drugs such as marijuana, cocaine, or opioids. ?Excessive use of alcohol. ?Smoking. ?Lack of physical activity or exercise. Psychological causes, such as: ?Anxiety or stress. ?Sadness or depression. ?Exhaustion. ?Fear about sexual performance. ?Guilt. What are the signs or symptoms? Symptoms of this condition include: Inability to get an erection. Lack of enough hardness of the erection to allow penetration. Loss of the erection before sex is finished. Sometimes having normal erections, but with frequent unsatisfactory episodes. Low sexual satisfaction in either partner due to erection problems. A curved penis occurring with erection. The curve may cause pain, or the penis may be too curved to allow for intercourse. Never having nighttime or morning erections. How is this diagnosed? This condition is often diagnosed by: Performing a physical exam to find other diseases or specific problems with the penis. Asking you detailed questions about the problem. Doing tests, such as: ?Blood tests to check for diabetes mellitus or high cholesterol, or to measure hormone levels. ?Other tests to check for underlying health conditions. ?An ultrasound exam to check for scarring. ?A test to check blood flow to the penis. Doing a sleep study at home to measure nighttime erections. How is this treated? This condition may be treated by: Medicines, such as: ?Medicine taken by mouth to help you achieve an erection (oral medicine). ?Hormone replacement therapy to replace low testosterone levels. ?Medicine that is injected into the penis. Your health care provider may instruct you how to give yourself these injections at home. ?Medicine that is delivered with a short applicator tube. The tube is inserted into the opening at the tip of the penis, which is the opening of the urethra. A tiny pellet of medicine is put in the urethra. The pellet dissolves and enhances erectile function. This is also called MUSE (medicated urethral system for erections) therapy. Vacuum pump. This is a pump with a ring on it. The pump and ring are placed on the penis and used to create pressure that helps the penis become erect. Penile implant surgery. In this procedure, you may receive: ?An inflatable implant. This consists of cylinders, a pump, and a reservoir. The cylinders can be inflated with a fluid that helps to create an erection, and they can be deflated after intercourse. ?A semi-rigid implant. This consists of two silicone rubber rods. The rods provide some rigidity. They are also flexible, so the penis can both curve downward in its normal position and become straight for sexual intercourse. Blood vessel surgery to improve blood flow to the penis. During this procedure, a blood vessel from a different part of the body is placed into the penis to allow blood to flow around (bypass) damaged or blocked blood vessels. Lifestyle changes, such as exercising more, losing weight, and quitting smoking. Follow these instructions at home: Medicines Take [id number] and prescription medicines only as told by your health care provider. Do not increase the dosage without first discussing it with your health care provider. If you are using self-injections, do injections as directed by your health care provider. Make sure you avoid any veins that are on the surface of the penis. After giving an injection, apply pressure to the injection site for 5 minutes. Talk to your health care provider about how to prevent headaches while taking ED medicines. These medicines may cause a sudden headache due to the increase in blood flow in your body. General instructions Exercise regularly, as directed by your health care provider. Work with your health care provider to lose weight, if needed. Do not use any products that contain nicotine or tobacco. These products include cigarettes, chewing tobacco, and vaping devices, such as e-cigarettes. If you need help quitting, ask your health care provider. Before using a vacuum pump, read the instructions that come with the pump and discuss any questions with your health care provider. Keep all follow-up visits. This is important. Contact a health care provider if: You feel nauseous. You are vomiting. You get sudden headaches while taking ED medicines. You have any concerns about your sexual health. Get help right away if: You are taking oral or injectable medicines and you have an erection that lasts longer than 4 hours. If your health care provider is unavailable, go to the nearest emergency room for evaluation. An erection that lasts much longer than 4 hours can result in permanent damage to your penis. You have severe pain in your groin or abdomen. You develop redness or severe swelling of your penis. You have redness spreading at your groin or lower abdomen. You are unable to urinate. You experience chest pain or a rapid heartbeat (palpitations) after taking oral medicines. These symptoms may represent a serious problem that is an emergency. Do not wait to see if the symptoms will go away. Get medical help right away. Call your local emergency services (911 in the [place] Do not drive yourself to the hospital. Summary Erectile dysfunction (ED) is the inability to get or keep an erection during sexual intercourse. This condition is diagnosed based on a physical exam, your symptoms, and tests to determine the cause. Treatment varies depending on the cause and may include medicines, hormone therapy, surgery, or a vacuum pump. You may need follow-up visits to make sure that you are using your medicines or devices correctly. Get help right away if you are taking or injecting medicines and you have an erection that lasts longer than 4 hours. This information is not intended to replace advice given to you by your health care provider. Make sure you discuss any questions you have with your health care provider. Document Revised: 09/26/2021 Document Reviewed: 09/26/2021 [employer] Patient Education 2023 [employer] Follow Up Care 01/27/2025 10:12:15 With:Arabella Pavon, URL Address: When:Within 8 Week(s) [facility] 02-02-2025 Note Patient Education Urology Erectile Dysfunction Erectile dysfunction (ED) is the inability to get or keep an erection in order to have sexual intercourse. ED is considered a symptom of an underlying disorder and is not considered a disease. ED may include: ??? Inability to get an erection. ??? Lack of enough hardness of the erection to allow penetration. ??? Loss of erection before sex is finished. What are the causes? This condition may be caused by: ??? Physical causes, such as: ? Artery problems. This may include heart disease, high blood pressure, atherosclerosis, and diabetes. ? Hormonal problems, such as low testosterone. ? Obesity. ? Nerve problems. This may include back or pelvic injuries, multiple sclerosis, Parkinson's disease, spinal cord injury, and stroke. ??? Certain medicines, such as: ? Pain relievers. ? Antidepressants. ? Blood pressure medicines and water pills (diuretics). ? Cancer medicines. ? Antihistamines. ? Muscle relaxants. ??? Lifestyle factors, such as: ? Use of drugs such as marijuana, cocaine, or opioids. ? Excessive use of alcohol. ? Smoking. ? Lack of physical activity or exercise. ??? Psychological causes, such as: ? Anxiety or stress. ? Sadness or depression. ? Exhaustion. ? Fear about sexual performance. ? Guilt. What are the signs or symptoms? Symptoms of this condition include: ??? Inability to get an erection. ??? Lack of enough hardness of the erection to allow penetration. ??? Loss of the erection before sex is finished. ??? Sometimes having normal erections, but with frequent unsatisfactory episodes. ??? Low sexual satisfaction in either partner due to erection problems. ??? A curved penis occurring with erection. The curve may cause pain, or the penis may be too curved to allow for intercourse. ??? Never having nighttime or morning erections. How is this diagnosed? This condition is often diagnosed by: ??? Performing a physical exam to find other diseases or specific problems with the penis. ??? Asking you detailed questions about the problem. ??? Doing tests, such as: ? Blood tests to check for diabetes mellitus or high cholesterol, or to measure hormone levels. ? Other tests to check for underlying health conditions. ? An ultrasound exam to check for scarring. ? A test to check blood flow to the penis. ??? Doing a sleep study at home to measure nighttime erections. How is this treated? This condition may be treated by: ??? Medicines, such as: ? Medicine taken by mouth to help you achieve an erection (oral medicine). ? Hormone replacement therapy to replace low testosterone levels. ? Medicine that is injected into the penis. Your health care provider may instruct you how to give yourself these injections at home. ? Medicine that is delivered with a short applicator tube. The tube is inserted into the opening at the tip of the penis, which is the opening of the urethra. A tiny pellet of medicine is put in the urethra. The pellet dissolves and enhances erectile function. This is also called MUSE (medicated urethral system for erections) therapy. ??? Vacuum pump. This is a pump with a ring on it. The pump and ring are placed on the penis and used to create pressure that helps the penis become erect. ??? Penile implant surgery. In this procedure, you may receive: ? An inflatable implant. This consists of cylinders, a pump, and a reservoir. The cylinders can be inflated with a fluid that helps to create an erection, and they can be deflated after intercourse. ? A semi-rigid implant. This consists of two silicone rubber rods. The rods provide some rigidity. They are also flexible, so the penis can both curve downward in its normal position and become straight for sexual intercourse. ??? Blood vessel surgery to improve blood flow to the penis. During this procedure, a blood vessel from a different part of the body is placed into the penis to allow blood to flow around (bypass) damaged or blocked blood vessels. ??? Lifestyle changes, such as exercising more, losing weight, and quitting smoking. Follow these instructions at home: Medicines ??? Take vcdi-ide-vqhcjtn and prescription medicines only as told by your health care provider. Do not increase the dosage without first discussing it with your health care provider. ??? If you are using self-injections, do injections as directed by your health care provider. Make sure you avoid any veins that are on the surface of the penis. After giving an injection, apply pressure to the injection site for 5 minutes. ??? Talk to your health care provider about how to prevent headaches while taking ED medicines. These medicines may cause a sudden headache due to the increase in blood flow in your body. General instructions ??? Exercise regularly, as directed by your health care provider. Work with your health care provider to lose weight, if needed. ??? Do not u (more content not included)... [facility] 01-10-2025 Evaluation note Diagnosis Onset Date Resolution Encounter prior to initiation of medication acute January 10, 2025 9:41am Chronic tension-type headache, not intractable chronic January 10, 2025 9:41am [facility] Work Phone: 1(523) 850-572206-30-2025 Evaluation note* Diagnosis Onset Date Resolution Status Admit Date Encounter prior to initiatio n of medication acute January 10, 2025 9:41am Chronic tension-type headach e, not intractable chronic January 10, 2025 9:41am Trapezius muscle spasm acute Ju ly 2024 2:13pm Chronic tension-type headach e, not intractable chronic January 24, 2025 2:13pm Fatigue acute February 16 11:04am Muscle pain acute February 16, 2 025 11:04am Trapezius muscle spasm acute Au jj 2024 11:04am Chronic tension-type headach e, not intractable chronic February 16, 2025 11:04am [facility] Work Phone: 1(830) 950-413406-30-2025 Evaluation note* Diagnosis Onset Date Resolution Status Admit Date Encounter prior to initiatio n of medication acute January 10, 2025 9:41am Chronic tension-type headach e, not intractable chronic January 10, 2025 9:41am Trapezius muscle spasm acute Ju ly 2024 2:13pm Chronic tension-type headach e, not intractable chronic January 24, 2025 2:13pm Anxiety, generalized acute Augu st 2024 11:04am Fatigue acute February 16 11:04am Muscle pain acute February 16, 2 025 11:04am Trapezius muscle spasm acute Au jj 2024 11:04am Chronic tension-type headach e, not intractable chronic February 16, 2025 11:04am [facility] Work Phone: 1(392) 417-610006-30-2025 Evaluation note* Diagnosis Onset Date Resolution Status [...] back pain acute March 11, 2025 8:46am [facility] Work Phone: 1(765) 301-827704-15-2025 History of Present illness Narrative* Mamie Ray, - 10/26/2024 9:00 AM EDT Images from the original note were not included. Chief Complaint: tension type headache Subjective Odilia Jean, 19 y.o., male Patient presents today for a neurologic consult at the request of Dr. Pierce for tension type headache. Patient reports he [...] , wrist extensors , wrist flexor , hold worker strength 5/5. LUE Strength deltoid , biceps , triceps , wrist extensors , wrist flexor , hold worker strength 5/5. RLE Strength illopsoas, quadriceps, tibialis [...] reflex 2+ . Miner's sign negative. Coordination: Jdoszv-jf-ubdr testing and rapid alternating movements are normal [...] plan, and return instructions documented in [facility]Co[facility] [id number] Evaluation note* Diagnosis Onset Date Resolution Status Admit Date ADHD acute March 18, 2024 9:04am Anxiety, generalized acute Sept 2023 9:04am Constipation acute May 9:12am Trapezius muscle spasm acute No vember 2023 9:12am [facility] Work Phone: 1(922) 540-527702-08-2024 Evaluation note* Encounter Date Diagnosis Assessment Notes [...] symptoms. Pt and his grandmother verbalize understanding. 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 Agrees to try trazodone. Jul, ADHD (ICD-10 - F90.9) Pt considering d/c strattera after basketball season if problem w insomnia continues. Otherwise it is helping w his concentration well. [facility] Other 05-03-2023 Evaluation note* Encounter Date Diagnosis [...] Will start w lowest dose of Intuniv. [facility] Other 02-22-2023 Evaluation note* Encounter Date Diagnosis [...] should not increase is anxiety or insomnia. [facility] Other Evaluation + Plan note Future Appointments Appointment Date:03/30/2025 09:00:00 AM Scheduled Provider:Arabella Pavon Location:[facility] Appointment Type:URO Office Visit [facility] Evaluation noteNo InformationNortNew [facility] Other Evaluation noteNo assessment information available [facility] Work Phone: Evaluation note* Diagnosis Onset Date Resolution Status Admit Date Tension type headache acute Aug 9:57am [facility] Work Phone: Evaluation note* Diagnosis Chronic tension-type headache, not intractable- Primary Chronic tension type headache [facility] Diagnosis Onset Date Resolution Status Admit Date Encounter prior to initiatio n of medication acute January 10, 2025 9:41am Chronic tension-type headach e, not intractable chronic January 10, 2025 9:41am [facility] Work Phone: History general Narrative - Reported* Type Description Date Medical History ADHD Medical History Olecranon bursitis, left elbow Medical History Anxiety, generalized [facility] Other [facility]ggr[facility] general Narrative - Reported* Type Description Date Medical History ADHD Medical History Olecranon bursitis, left elbow Medical History Anxiety, generalized Surgical History Problem Title : past surgical history reviewed, Problem Description : past surgical history reviewed, Problem Comment : reviewed - no changes required, Problem Status : Active, [facility] Other Hisiqpm general Narrative - Reported* Type Description Date Medical History ADHD Medical History Olecranon bursitis, left elbow Medical History Anxiety, generalized Surgical History No Surgical history information [facility] Other Hospital course Narrative No data available for this section [facility] Progress note No data available for this section [facility] Reason for referral (narrative)No reason for referral information availableM[facility] Work Phone: Reason for visit Narrative* Consultation (Routine) - Closed Specialty Diagnoses / Procedures Referred By Contac t Referred To Contact Neurology Diagnoses Headache, unspecified Tension-type headache, unspecified, not intractable Procedures [facility] OFFICE/OUTPATIENT NEW LOW MDM 30 MINUTES Karlie Pierce MD Phone: tel: fax: Mamie Ray, [address] [address] Phone: tel: fax: Referral ID Status Reason Start Date Expiration Date V isits Requested Visits Authorized [id number] Closed Consult and Treat 09/07/2024 03/06/2025 1 1 [facility] Summary Purpose Family History No Family History Records FoundNo Family History Records Found No data available for this section No Family History Records FoundNo Family History [...] month f/u January 10, 2025 9:41 am Chief Complaint Admit Date 2 month f/u [...] not intra ctable February 16, 2025 11:04am Chief Complaint Admit Date 2 month f/u January 10, 2025 9:41 am Neuro f/u January 24, 2025 2:13 pm medication questions February 16, 2025 11 :04am C only; back spasms February 23, 2025 10 :00am UA:Burning/Back Pain February 25, 2025 1 :45pm Reason for Visit Admit Date Encounter prior [...] not intra ctable February 16, 2025 11:04am Chief Complaint Admit Date 2 month f/u [...] January 10, 2025 9:41am Trapezius muscle spasm Brianda 14th, 2025 2 :13pm Chronic tension-type headache, not [...] back pain March 11, 2025 8: 46am Additional Source Comments (unrecognized sect ion and content) No Status Records FoundNo Status Records FoundNo Status Records FoundNo Status Records Found INFORMATION SOURCE (unrecogn ized section and content) DATE CREATED AUTHOR 06/05/2022 [facility] DATE CREATED AUTHOR AUTHOR'S ORGANIZ ATION 10/27/2024 [facility] EPIC DATE CREATED AUTHOR AUTHOR'S ORGANIZ ATION 02/25/2025 [facility] DATE CREATED AUTHOR AUTHOR'S ORGANIZ ATION 03/08/2025 [facility] REASON FOR VISIT (unrecogniz ed section and content) Check UpMedication Discussio nrefillAnxiety, Insomniafever, headache, vomitting, COVID Negative Care Teams (unrecognized sec tion and content) Team Status: Active Member Role Status Dates Karlie Pierce MD Primary Care Provider Active Team Status: Inactive Member Role Status Dates Karlie Pierce MD Attending Provider Active St art: July 21, 2023 End: July 21, 2023 Team Status: Inactive Member Role Status Dates Karlie Pierce MD Primary Care Provide r, Attending Provider Active Start: August 28, 2023 End: August 28, 2023 Team Status: Inactive Member Role Status Dates Karlie Pierce MD Primary Care Provide r, Attending Provider Active Start: March 18, 2024 End: March 18, 2024 Team Status: Inactive Member Role Status Dates Karlie Pierce MD Primary Care Provide r, Attending Provider Active Start: June 01, 2024 End: June 01, 2024 Team Status: Inactive Member Role Status Dates Karlie Pierce MD Primary Care Provide r, Attending Provider Active Start: September 02, 2024 End: September 02, 2024 Aircraft Detail Draftsperson Relationship Specialty Start Date End Date Karlie Pierce MD [address] [facility] [place] [address] PCP - General Family Medicine 09/08/24 Aircraft Detail Draftsperson Relationship Specialty Start Date End Date Karlie Pierce MD [address] [facility] [place] [id number] PCP - General [facility] Medicine 09/08/24 Team Status: Inactive Member Role Status Dates MARIA A Perez Attending Provider Active Start: January 10, 2025 End: January 10, 2025 Karlie Pierce MD Primary Care Provider Active Start: January 10, 2025 End: January 10, 2025 Team Status: Inactive Member Role Status Dates Karlie Pierce MD Primary Care Provider Active Start: January 24, 2025 End: January 24, 2025 Karlie Pierce MD Attending Provider Active St art: January 24, 2025 End: January 24, 2025 Team Status: Inactive Member Role Status Dates Karlie Pierce MD Primary Care Provider Active Start: February 16, 2025 End: February 16, 2025 Karlie Pierce MD Attending Provider Active St art: February 16, 2025 End: February 16, 2025 Team Status: Active Member Role Status Dates Karlie Pierce MD Primary Care Provider Active Start: February 23, 2025 Karlie Pierce MD Attending Provider Active St art: February 23, 2025 Team Status: Inactive Member Role Status Dates Karlie Pierce MD Primary Care Provider Active Start: February 25, 2025 End: February 25, 2025 Navarro Dixon DO Attending Provider Active Sta rt: February 25, 2025 End: February 25, 2025 Team Status: Active Member Role Status Dates Karlie Pierce MD Primary Care Provider Active Start: March 07, 2025 Karlie Pierce MD Attending Provider Active St art: March 07, 2025 Team Status: Inactive Member Role Status Dates Karlie Pierce MD Primary Care Provider Active Start: March 11, 2025 End: March 11, 2025 Karlie Pierce MD Attending Provider Active St art: March 11, 2025 End: March 11, 2025 Goals (unrecognized section and content) Goals [...] BE BASED ON THE PRIMARY CLINICAL RECORDS. [facility] provides no warranty or guarantee of the accuracy or completeness of information in this document.
== END 2025-03-11 10:06 | disposition home or self-care (01) ==
LOC: RAD 10:07
PROVIDERS: PCP Family Medicine; Visit Provider Family Medicine
DX: M54.2 Cervicalgia (principal); M54.6 Pain in thoracic spine; M54.50 Low back pain, unspecified
CPT/HCPCS: 72050; 72072; 72100

== ENCOUNTER 2025-03-25 12:54 | Outpatient (OUT) | payer OTHER, SELFPAY ==
--- OUTSIDE RECORDS SUMMARY | 2021-10-19 12:27 | XMS_ITS | Continuity of Care Document ---
Author Organization [facility] Address [address] [place] [address] Phone Care Team Providers Care Properties Supervisor Name Role Phone No Information Unavailable Unavailable Allergies, Adverse Reactions, Alerts Substance Reaction Status Criticality No Known Allergies Active No Inform ation Procedures Procedure Date Postop followup visit X-ray exam of wrist, complete 2 Postop followup visit X-ray exam of wrist, complete 2 Office/outpatient visit,[facility] 2021 Cast sup gauntlet fiberglass Clsd trtmnt distal rdl Fx w/o manip Advance Directives Directive Yes / No Effective Date File Name No Information Encounters Encounter Description Practice Location Reason(s) For Visit Diagnoses Date Provider Providers Copied on Encounter [facility], [facility] [place] [place], [address], [place] tel:[phone] No Information 2 No Information [facility], [address] [place] [address], [address], [place] tel:[phone] [place] fx of lower end r radius, subs for clos fx w routn heal 2 Carolina Ken. [address], [place], [id number], [place]. tel:[phone] Referring Provider: Jesus Manuel Acevedo [address] [place], [address] . tel:[phone] [facility], [facility] [address] [place], [place], [facility], [place] tel:[phone] [facility] Oth fx of lower end r radius, subs for clos fx w routn heal 2 [place] Ken. [address], [place], [id number], [place]. tel:[phone] Referring Provider: Jesus Manuel Acevedo, [address] [place], [address] . tel:[phone] Office/outpat ient visit,[facility], [facility] [address] [place], [place], [facility], [place] tel:[phone] [facility] wrist (chief complaint) Oth fractures of lower end of right radius, init for clos fx 2 [place] Ken. [address], [place], [id number], [place]. tel:[phone] Referring Provider: Jesus Manuel Acevedo [address] [place], [address] . tel:[phone] Family History Family Member Type Diagnosis Age At Onset No Information Payers Payer name Insurance type Covered alliance party ID Authorjanniea tiduncan(s) [employer] - [id number] Social History Type Description Quantity Date Captured Comments Sex Male Smoking Status No Information Chief Complaint And Reason For Visit No Information Reason For Referral Reason For Referral No Information History Of Present Illness Encounter Date Complaint History Of Prese nt Illness wrist Functional Status Date Functional Assessmen t No Information Instructions Date Instruction Additional Infor mation No Information Assessments Type Assessment Date No Information Patient Care Teams Name Effective Dates (start - stop) Status Members No Information
--- OUTSIDE RECORDS SUMMARY | 2025-03-11 05:21 | XMS_ITS | Continuity of Care Document ---
Author Organization [facility] Address [address] [place] [address] Phone Care Team Providers Care Civil Structural Designer Name Role Phone Elif Funes Attending Provider + Karlie Bianchi MD Primary Care Provider Karlie Bianchi MD Attending Provider Navarro Dixon DO Attending Provider Care Teams Patient Care Team [...] January 24, 2025 End: January 24, 2025 Visit Care Team Team Status: Inactive Member Role Status Dates Karlie Bianchi MD Primary Care Provider Active Start: February 16, 2025 End: February 16, 2025 Karlie Bianchi MD Attending Provider Active St art: February 16, 2025 End: February 16, 2025 Visit Care Team Team Status: Inactive Member Role Status Dates Karlie Bianchi MD Primary Care Provider Active Start: February 25, 2025 End: February 25, 2025 Navarro Ball , DO Attending Provider Active Sta rt: February 25, 2025 End: February 25, 2025 Visit Care Team Team Status: Active Member Role Status Dates Karlie Bianchi MD Primary Care Provider Active Start: March 07, 2025 Karlie Bianchi MD Attending Provider Active St art: March 07, 2025 Patient Care Team Team Status: Inactive Member Role Status Dates Karlie Bianchi MD Primary Care Provider Active Start: March 11, 2025 End: March 11, 2025 Karlie Bianchi MD Attending Provider Active St art: March 11, 2025 End: March 11, 2025 Chief Complaint and Reason for Visit Chief Complaint Admit Date 2 month f/u January 10, 2025 9:41 am Neuro f/u January 24, 2025 2:13 pm medication questions February 16, 2025 11 :04am UA:Burning/Back Pain February 25, 2025 1 :45pm C only; back spasms March 07, 2025 1: 45pm depressed March 11, 2025 8: 46am Reason for Visit Admit Date Encounter prior to initiation of medicat ion January 10, 2025 9:41am Chronic tension-type headache, not intra ctable January 10, 2025 9:41am Trapezius muscle spasm January 24, 2025 2 :13pm Chronic tension-type headache, not intra ctable January 24, 2025 2:13pm Anxiety, generalized February 16, 2025 11 :04am Fatigue February 16, 2025 11: 04am Muscle pain February 16, 2025 11: 04am Trapezius muscle spasm February 16, 2025 11:04am Chronic tension-type headache, not intra ctable February 16, 2025 11:04am Cervical pain (neck) March 11, 2025 8 :46am Lumbar back pain March 11, 2025 8: 46am Thoracic back pain March 11, 2025 8: 46am Allergies, Adverse Reactions, Alerts Allergen Type Severity Reaction Last Updated Verified Status No Known Allergies Allergy Unknown March 11, 2025 8:5 4am Yes Active Social History Smoking Status Status [...] to initiation of medication Unkn own Active Lumbar back pain Unknown Active Chronic tension-type headache, not intractable U nknown Active ADHD Unknown Active Cervical pain (neck) Unknown Active Thoracic back pain Unknown Active Constipation Unknown Active Medications Medication Status Dose Units Route Directions Qty Days St art Date Stop Date End Date Instructions Adherence Atomoxetine 25 mg capsule Discont inued 0 .ROUTE .COMPLEX December 24, 2023 1:04pm January 23, 2024 1:03p m TAKE 1 CAPSULE BY MOUTH EVERY DAY Atomoxetine 25 mg capsule Discont inued 0 .ROUTE .COMPLEX January 23, 2024 1:03pm 2023 9:12a m TAKE 1 CAPSULE BY MOUTH EVERY DAY Amitriptyli ne 10 mg tablet Discont inued 10 MG PO Daily at bedtime February 03, 2025 10:05a m Augus t 2024 11:11 am Atomoxetine 25 mg capsule Discont inued 1 TAB PO Daily 2023 1:00am December 24, 2023 1:04p m FreeTextSi tablet once a day; Note: Source Status: Continue; Provider: Tash Ziegler ( ) Trazodone 50 mg tablet Discont inued 50 MG PO Daily at bedtime 2023 12:00a m 2023 9:11a m FreeTextSi tablet at bedtime as needed Orally Once a day; Note: Source Status: Start; Provider: Tash Acevedo Ketoconazol e 2 % shampoo Discont inued TOPICA L 2023 12:00a m 2023 10:27 am FreeTextSig: APPLY TO AFFECTED AREA THREE TIMES A WEEK; Note: Source Status: Start; Refills: 0; Qty: 120 Milliliter; Provider: Tash Ziegler ( ) Escitalopra m Oxalate (Lexapro) 5 mg tablet Discont inued 5 MG PO Daily 30 2023 12:00a m 2023 10:27 am Meloxicam 15 mg tablet Discont inued 15 MG PO Daily 20 2025 1:00am January 10, 2025 9:52a m Tizanidine [...] Event Date Not Given Reason Dose Number Hat Checker Lot Number Vaccine Information Statement (VIS) Detail Administration Location [address] ([facility]) May 05, 2021 Relevant Diagnostic Tests and/or Laboratory Data Laboratory Results Test Collection Date/Time Result Date/Time Result Interpretation Reference Range Result Comment Performing Site Thyroid Stimulating Hormone 3rd Gen February 16, 2025 1:12pm February 16, 2025 1:12pm 1.020 u[iU]/mL 0.516-4.13 0 Total Creatine Kinase February 16, 2025 1:12pm February 16, 2025 1:12pm 230 U/L 39-308 Anion Gap February 16, 2025 1:12pm February 16, 2025 1:12pm 9.9 Basophils # (Auto) February 16, 2025 1:12pm February 16, 2025 1:12pm 0.0 10 3/uL 0.0-0.1 Urine Color February 25, 2025 2:01pm February 25, 2025 2:02pm yellow BUN/Creatin ine Ratio February 16, 2025 1:12pm February 16, 2025 1:12pm 11.2 Basophils (%) (Auto) February 16, 2025 1:12pm February 16, 2025 1:12pm 0.8 % 0.2-2.0 Urine Appearance February 25, 2025 2:01pm February 25, 2025 2:02pm cloudy Blood Urea Nitrogen February 16, 2025 1:12pm February 16, 2025 1:12pm 10.0 mg/dL 6.4-19.3 Eosinophils # (Auto) February 16, 2025 1:12pm February 16, 2025 1:12pm 0.2 10 3/uL 0.0-0.7 Urine Specific Rindge February 25, 2025 2:01pm February 25, 2025 2:02pm 1.010 Calcium Level February 16, 2025 1:12pm February 16, 2025 1:12pm 9.6 mg/dL 8.5-10.1 Eosinophils (%) (Auto) February 16, 2025 1:12pm February 16, 2025 1:12pm 3.2 % 0.9-7.0 Urine pH February 25, 2025 2:01pm February 25, 2025 2:02pm 8.0 Chloride Level February 16, 2025 1:12pm February 16, 2025 1:12pm 104 mmol/L 98-107 Hematocrit February 16, 2025 1:12pm February 16, 2025 1:12pm 48.2 % 42.0-54.0 Urine Leukocyte Esterase February 25, 2025 2:01pm February 25, 2025 2:02pm negative Carbon Dioxide Level February 16, 2025 1:12pm February 16, 2025 1:12pm 32.8 mmol/L Above high normal 21.0-32.0 Hemoglobin February 16, 2025 1:12pm February 16, 2025 1:12pm 15.7 g/dL 14.0-18.0 Urine Nitrite February 25, 2025 2:01pm February 25, 2025 2:02pm Negative Creatinine February 16, 2025 1:12pm February 16, 2025 1:12pm 0.89 mg/dL 0.70-1.30 Immature Granulocyte # (Auto) February 16, 2025 1:12pm February 16, 2025 1:12pm 0.01 10 3/uL 0.00-0.03 Urine Protein February 25, 2025 2:01pm February 25, 2025 2:02pm + Estimated GFR () February 16, 2025 1:12pm February 16, 2025 1:12pm >60 >=60 mL/min/1.7 3m 2 Immature Granulocyte % (Auto) February 16, 2025 1:12pm February 16, 2025 1:12pm 0.2 % 0.0-0.5 Urine Glucose (UA) February 25, 2025 2:01pm February 25, 2025 2:02pm negative Estimated GFR (Non-Maria G n Syrian February 16, 2025 1:12pm February 16, 2025 1:12pm >60 >=60 mL/min/1.7 3m 2 Lymphocytes # (Auto) February 16, 2025 1:12pm February 16, 2025 1:12pm 1.1 10 3/uL Below low normal 1.2-3.8 Urine Ketones February 25, 2025 2:01pm February 25, 2025 2:02pm negative Glucose Level February 16, 2025 1:12pm February 16, 2025 1:12pm 98 mg/dL 74-106 Lymphocytes (%) (Auto) February 16, 2025 1:12pm February 16, 2025 1:12pm 22.0 % 20.5-60.0 Urine Urobilinoge n February 25, 2025 2:01pm February 25, 2025 2:02pm 0.2 Potassium Level February 16, 2025 1:12pm February 16, 2025 1:12pm 4.7 mmol/L 3.5-5.1 Mean Corpuscular Hemoglobin February 16, 2025 1:12pm February 16, 2025 1:12pm 25.7 pg Below low normal 25.9-34.0 Urine Bilirubin February 25, 2025 2:01pm February 25, 2025 2:02pm negative Sodium Level February 16, 2025 1:12pm February 16, 2025 1:12pm 142 mmol/L 136-145 Mean Corpuscular Hemoglobin Concent February 16, 2025 1:12pm February 16, 2025 1:12pm 32.6 g/dL 29.9-35.2 Urine Occult Blood February 25, 2025 2:01pm February 25, 2025 2:02pm negative Mean Corpuscular Volume February 16, 2025 1:12pm February 16, 2025 1:12pm 78.9 fL Below low normal 80.0-94.0 Monocytes # (Auto) February 16, 2025 1:12pm February 16, 2025 1:12pm 0.7 10 3/uL 0.3-0.8 Monocytes (%) (Auto) February 16, 2025 1:12pm February 16, 2025 1:12pm 14.6 % Above high normal 1.7-12.0 Mean Platelet Volume February 16, 2025 1:12pm February 16, 2025 1:12pm 8.7 fL Below low normal 9.5-13.5 Neutrophils # (Auto) February 16, 2025 1:12pm February 16, 2025 1:12pm 3.0 10 3/uL 1.4-6.5 Neutrophils (%) (Auto) February 16, 2025 1:12pm February 16, 2025 1:12pm 59.2 % 43.0-75.0 Platelet Count February 16, 2025 1:12pm February 16, 2025 1:12pm 239 10 3/uL 150-450 Red Blood Count February 16, 2025 1:12pm February 16, 2025 1:12pm 6.11 10 6/uL Above high normal 4.70-6.10 Red Cell Distributio n Width February 16, 2025 1:12pm February 16, 2025 1:12pm 13.3 % 11.0-15.0 Corrected White Blood Count February 16, 2025 1:12pm February 16, 2025 1:12pm 5.0 10 3/uL 4.0-11.0 Vital Signs Vital Reading Result Reference Range [...] to 85th percentile February 16, 2025 11:08am Body mass index (BMI) [Percentile] Per age and sex 47.9 % Normal or healthy weight; 5th to 85th percentile February 16, 2025 11:08am Height 74 [in_i] March 11 7:49am Weight 81.19 kg March 11 7:49am Heart Rate 94 /min 60-100 March 11 7:49am Respiratory rate 14 /min 12-24 February 7:49am Oxygen saturation by Pulse oximetry 97 % 95-100 March 11, 2025 7: 49am BP Systolic 108 mm[Hg] 100-140 March 11 7:49am BP Diastolic 68 mm[Hg] 60-100 March 11 7:49am BMI (Body Mass Index) 22.9 kg/m2 March 11, 2025 7:49am Body mass index (BMI) [Percentile] Per age and sex 51.4 % Normal or healthy weight; 5th to 85th percentile March 11, 2025 7:49am Advance Directives Advance Directive Response Recorded Date/ Time Advance Directives No August 9:43am Insurance Providers Guarantor Gerard Larose Address [address] [place] [address] Contact Info. Home Phone: Payer Policy Id Subscriber's Name Subscriber Id Effectiv e Date Expiration Date [employer] [id number] Gerard Larose [id number] Encounters Encounter Location(s) Arrival/Admit Date Discharge/Depart Date Provider(s) Departed Physician/Provi manuel [facility] [place] [place] January 10, 2025 9:41am January 10, 2025 10:26am Elif Funes APRN-[facility]-C Departed Physician/Provi manuel Office Visit -[facility] January 24, 2025 2:13pm January 24, 2025 3:32pm Karlie Bianchi MD Departed Physician/Provi manuel Office Visit -[facility] February 16, 2025 11:04am February 16, 2025 11:34am Karlie Bianchi MD Departed Physician/Provi manuel Office Visit -[facility] February 25, 2025 1:45pm February 25, 2025 2:00pm Navarro Dixon DO Registered Recurring -[facility] March 07, 2025 1:45pm Karlie Bianchi MD Departed Physician/Provi manuel Office Visit -[facility] March 11, 2025 8:46am March 11, 2025 9:20am Karlie Bianchi MD Recent Diagnosis Onset Date Admit Date Encounter prior to initiation of medication Unkn own January 10, 2025 9:41am Chronic tension-type headache, not intractable U nknown January 10, 2025 9:41am Trapezius muscle spasm Unknown January 2:13pm Chronic tension-type headache, not intractable U nknown January 24, 2025 2:13pm Anxiety, generalized Unknown February 16, 2025 11:04am Fatigue Unknown February 16, 2025 11:04am Muscle pain Unknown February 16, 2025 11:04am Trapezius muscle spasm Unknown February 11:04am Chronic tension-type headache, not intractable U nknown February 16, 2025 11:04am Cervical pain (neck) Unknown February 8:46am Lumbar back pain Unknown March 11 8:46am Thoracic back pain Unknown March 11, 2025 8:46am Assessments Diagnosis Onset Date Resolution Status Admit Date Encounter prior to initiatio n of medication acute January 10, 2025 9:41am Chronic tension-type headach e, not intractable chronic January 10, 2025 9:41am Trapezius muscle spasm acute 2024 2:13pm Chronic tension-type headach e, not intractable chronic January 24, 2025 2:13pm Anxiety, generalized acute 2024 11:04am Fatigue acute February 16 11:04am Muscle pain acute February 16 11:04am Trapezius muscle spasm acute 2024 11:04am Chronic tension-type headach e, not intractable chronic February 16, 2025 11:04am Cervical pain (neck) acute 2024 8:46am Lumbar back pain acute February 122024 8:46am Thoracic back pain acute March 11, 2025 8:46am Plan of Treatment Author Elif Funes [facility] Authored January 10, 2025 2:30 pm Mr. [...] this medication including but not limited to ARCHITECTURE TECHNICIAN effects, cardiovascular effects, and increased risk of [...] to proceed. All questions answered. Author Karlie [facility] Authored January 31, 2025 10:3 5am Prescriptions reviewed. Pt a grees to PT. Order printed and given. Gave him the EKG order, recommended he go over to [facility] and complete it right now. Reviewed treatment plan from Neurology. Answered questions about prescriptions. Followup w their office as scheduled. They were notified of his Urgent Care visit and present prescriptions. Author Karlie Bianchi [facility] Authored February 18, 2025 3:1 3pm Check labs. Followup w Neuro logy and PT as scheduled. Stay well hydrated virgil at work. Encouraged him to continue education. Will assess muscle enzymes as well. Lexapro restarted for anxiety. Future Tests Future scheduled test information is unavailable Pending Tests Test Name Ordered Date Scheduled Date XR cervical spine 5V* March 11, 2025 9:09am XR lumbar spine 2-3V* March 11, 2025 9:09am XR thoracic spine 3V* March 11, 2025 9:09am ECG 12 lead ECG January 10, 2025 10:25am Future Visits Future appointment information is unavailable Referrals to Other Providers Referral information is unavailable Future Procedures Procedure Name Ordered Date Scheduled Date Basic Metabolic Panel February 16, 2025 11:24am Creatine Kinase February 16, 2025 11:24am Future Medications Future medication information is unavailable Patient Instructions Instruction Admit Date Low back pain in adults March 11 5 8:46am
--- OUTSIDE RECORDS SUMMARY | 2025-03-25 12:57 | XMS_ITS | Continuity of Care Document ---
Author Organization [facility] Address [address] [place] [address] Phone Care Team Providers Care Batterboard Setter Name Role Phone Elif Funes Attending Provider + Karlie Bianchi MD Primary Care Provider Karlie Bianchi MD Attending Provider [phone] Navarro Dixon DO Attending Provider Care Teams [...] Provider Active St art: March 07, 2025 Visit Care Team Team Status: Inactive [...] Event Date Not Given Reason Dose Number Quality Project Manager Lot Number Vaccine Information Statement (VIS) Detail Administration Location [address] ([facility]) May 05, 2021 Relevant Diagnostic Tests and/or [...] 1:12pm 0.2 10 3/uL 0.0-0.7 Urine Specific [place] February 25, 2025 2:01pm February 25, 2025 [...] 2:02pm negative Estimated GFR (Non-Maria [place] n [place] February 16, 2025 1:12pm February 16, 2025 [...] Insurance Providers Guarantor Gerard Larose Address [address] [place] [address] Contact Info. Home Phone: Payer Policy Id Subscriber's Name Subscriber Id Effectiv e Date Expiration Date [employer] [id number] Gerard Larose [id number] Encounters Encounter Location(s) Arrival/Admit Date Discharge/Depart Date Provider(s) Departed Physician/Provi manuel Office Visit -[facility] January 10, 2025 9:41am January 10, 2025 10:26am Elif Funes APRN-SPECIAL EFFECTS ARTIST-C Departed Physician/Provi manuel Office Visit -[facility] January 24, 2025 2:13pm January 24, 2025 3:32pm Karlie Bianchi MD Departed Physician/Provi manuel Office Visit -[facility] February 16, 2025 11:04am February 16, 2025 11:34am Karlie Bianchi MD Departed Physician/Provi manuel Office Visit -[facility] February 25, 2025 1:45pm February 25, 2025 2:00pm Navarro Dixon DO Registered Recurring -[facility] March 07, 2025 1:45pm Karlie Bianchi MD Departed Physician/Provi manuel Office Visit -[facility] March 11, 2025 8:46am March 11, 2025 [...] 16 11:04am Muscle pain acute February 16, 11:04am Trapezius muscle spasm acute Au 2024 11:04am Chronic tension-type headach e, not intractable chronic February 16, 2025 11:04am Cervical pain (neck) acute 2024 8:46am Lumbar back pain acute February 122024 8:46am Thoracic back pain acute March 11, 2025 8:46am Plan of Treatment Author Karlie Bianchi [facility] Authored March 15, 2025 3:38pm Check xrays as ordered. Cont inue PT. Author Elif Funes [facility] Authored January 10, 2025 2:30 pm Mr. [...] this medication including but not limited to CYBER INCIDENT HANDLER effects, cardiovascular effects, and increased risk of [...] wishes to proceed. All questions answered. Author Kralie Bianchi [facility] Authored January 31, 2025 10:3 5am Prescriptions reviewed. Pt a grees to PT. Order printed and given. Gave him the EKG order, recommended he go over to [facility] and complete it right now. Reviewed treatment plan from Neurology. Answered questions about prescriptions. Followup w their office as scheduled. They were notified of his Urgent Care visit and present prescriptions. Author Karlie [facility] Authored February 18, 2025 3:1 3pm Check [...] Low back pain in adults March 11 8:46am
--- OUTSIDE RECORDS SUMMARY | 2025-03-25 12:57 | XMS_ITS | Clinical Summary ---
Author Organization [facility] Address [address] [place] [address] Care Team Providers Care Component Prep Operator Name Role Phone Karlie Bianchi MD Primary Care Provider [phone] Allergies No known active allergies Medications tiZANidine (Zanaflex) 2 MG tabletIndication s:Chronic tension-type headache, not intractable Take 1 tablet (2 mg) by mouth Daily 30 tablet 2 10/26/2024 Active Social History Tobacco Use Types Packs/Day Years [...] 2005 Insurance [employer] Care Teams Component Prep Operator Relationship Specialty Start Date End Date Karlie Bianchi MD [address] [place] [address] PCP - General Family Medicine 09/08/24
--- OUTSIDE RECORDS SUMMARY | 2025-03-25 12:59 | XMS_ITS | CCD ---
Author Organization [facility] Care Team Providers Care Natural Sciences Department Chair Name Role Phone DR KARLIE PIERCE Admitting Unavailable STAN, DR KARLIE Acevedo Attending Unavailable STAN, DR KARLIE Acevedo Primary Care Unavailable STAN, DR KARLIE Acevedo Consulting Unavailable AICHHOLZ, PAIN MEDICINE PHYSICIAN ANGEL Admitting Unavailable AICHHOLZ, PAIN MEDICINE PHYSICIAN ANGEL Attending Unavailable STAN, DR KARLIE Acevedo Primary Care Unavailable AICHHOLZ, PAIN MEDICINE PHYSICIAN ANGEL Consulting Unavailable AICHHOLZ, PAIN MEDICINE PHYSICIAN ANGEL Admitting Unavailable AICHHOLZ, PAIN MEDICINE PHYSICIAN ANGEL Attending Unavailable STAN, DR KARLIE Acevedo Primary Care Unavailable STAN, DR KARLIE Acevedo Admitting Unavailable STAN, DR KARLIE Acevedo Attending Unavailable STAN, DR KARLIE Acevedo Primary Care Unavailable Karlie Pierce Unavailable Daily Nagel Unavailable [phone] Karlie Pierce MD Primary Care Provider MAMIE RAY Attending Unavailable KARLIE PIERCE Referring Unavailable Marin [employer]-EMPLOYMENT LAW ATTORNEY-Elif Soto Attending Provider Karlie Pierce MD Primary Care Provider Karlie Pierce MD Attending Provider [phone] KARLIE PIERCE Primary Care Physician [phone] Navarro Dixon DO Attending Provider Karlie Pierce Admitting Unavailable Karlie Pierce Attending Unavailable Karlie Pierce Primary Care Unavailable Arabella Reyes Attending Unavailable Arabella Reyes Attending Unavailable Allergies Allergy Classification Reported Allergen(s) Allergy Type Date of Onset Reaction(s) Facility (2 sources) patient allergy list reviewed by nurse or physicia Propensity to adverse reactions 07-22-201 9 Comment:Done [facility] Other (2 sources) Allergies Reconciled Propensity to adverse reactions Unknown [facility] Other Medications Current Medications Medication Drug Class(es) [...] for 4 week(s), 56 tab(s), Refill(s) 0, [facility] #[id number], 191, cm, 02/02/25 14:18:00 EDT, Height/Length [...] Ziegler ( ) take 1 capsule by [facility] every twenty-four hours Strattera 25 MG 1 [...] muscle spasm; Translations: [Spasm of muscle] Onset: 03-18-2025 06-01-2024 Episodic Other connective tissue disease (6 [...] Dixon on 02-25-2025 Bilirubin Ql (U) Negative [facility] Glucose (U) [Mass/Vol] Negative [facility] Ketones Ql (U) Negative [facility] pH (U) 8.0 [pH] [facility] Specific gravity (U) [Rel density] 1.010 [facility] Urobilinogen (U) [Mass/Vol] 0.2 mg/dL [facility] Laboratory - Specimen inform ationOrdered By: Navarro Dixon on 02-25-2025 Appearance (U) cloudy [facility] Color (U) yellow [facility] - UrinalysisOrder ed By: Navarro Dixon on 02-25-2025 Leukocyte esterase Test strip Ql (U) Negative [facility] Nitrite Ql (U) Negative [facility] Protein Ql (U) + [facility] No Panel InformationOrdered By: Navarro Dixon on 02-25-2025 Urine Occult Blood Negative [place] Basophils Auto (Bld) [#/Vol] Ordered By: Karlie Pierce on 02-16-2025 Basophils (Bld) [#/Vol] 0.0 10 3/uL 0.0-0.1 [facility] Basophils/100 WBC Auto (Bld) Ordered By: Karlie Pierce on 02-16-2025 Basophils/100 WBC (Bld) 0.8 % 0.2-2.0 [facility] Eosinophils/100 WBC Auto (Bl d)Ordered By: Karlie Pierce on 02-16-2025 Eosinophils/100 WBC (Bld) 3.2 % 0.9-7.0 [facility] Erythrocyte distribution wid th Auto (RBC) [Ratio]Ordered By: Karlie Pierce on 02-16-2025 Erythrocyte distribution width (RBC) [Ratio] 13.3 % 11.0-15.0 [facility] Glomerular filtration rate ( GFR) estimation in non- AmericanOrdered By: Karlie Pierce on 02-16-2025 GFR/1.73 sq M.predicted among non-blacks MDRD (S/P/Bld) [Vol rate/Area] mL/min/{1.73_m2} >=60 mL/min/1.73m 2 [facility] Hematocrit Auto (Bld) [Volum e fraction]Ordered By: Karlie Pierce on 02-16-2025 Hematocrit (Bld) [Volume fraction] 48.2 % 42.0-54.0 [facility] Hemoglobin [Mass/volume] in BloodOrdered By: Karlie Pierce on 02-16-2025 Hemoglobin (Bld) [Mass/Vol] 15.7 g/dL 14.0-18.0 [facility] Laboratory - Chemistry and C hemistry - challengeOrdered By: Karlie Pierce on 02-16-2025 Calcium [Mass/Vol] 9.6 mg/dL 8.5-10.1 [place] Chloride [Moles/Vol] 104 mmol/L 98-107 [facility] CK [Catalytic activity/Vol] 230 U/L 39-308 [facility] CO2 [Moles/Vol] 32.8 mmol/L High 21.0-32.0 [facility] Creatinine [Mass/Vol] 0.89 mg/dL 0.70-1.30 [facility] GFR/1.73 sq M.predicted MDRD (S/P/Bld) [Vol rate/Area] mL/min/{1.73_m2} >=60 mL/min/1.73m 2 [facility] Glucose [Mass/Vol] 98 mg/dL 74-106 [place] Potassium [Moles/Vol] 4.7 mmol/L 3.5-5.1 [facility] Sodium [Moles/Vol] 142 mmol/L 136-145 [place] TSH Qn 1.020 m[IU]/L 0.516-4.130 [facility] Urea nitrogen [Mass/Vol] 10.0 mg/dL 6.4-19.3 [facility] Urea nitrogen/Creatinine [Mass ratio] 11.2 mg/mg [facility] - Hematology and Cell countsOrdered By: Karlie Pierce on 02-16-2025 Immature granulocytes/100 WBC (Bld) 0.2 % 0.0-0.5 [facility] Leukocytes [#/volume] correc phuc for nucleated erythrocytes in Blood by Automated counOrdered By: Karlie Pierce on 02-16-2025 WBC corrected for nucl RBC Auto (Bld) [#/Vol] 5.0 10 3/uL 4.0-11.0 [facility] Lymphocytes Auto (Bld) [#/Vo l]Ordered By: Karlie Pierce on 02-16-2025 Lymphocytes (Bld) [#/Vol] 1.1 10 3/uL Low 1.2-3.8 [facility] Lymphocytes/100 WBC Auto (Bl d)Ordered By: Karlie Pierce on 02-16-2025 Lymphocytes/100 WBC (Bld) 22.0 % 20.5-60.0 [facility] MCH Auto (RBC) [Entitic mass ]Ordered By: Karlie Pierce on 02-16-2025 MCH (RBC) [Entitic mass] 25.7 pg Low 25.9-34.0 [facility] MCHC Auto (RBC) [Mass/Vol]Or dered By: Karlie Pierce on 02-16-2025 MCHC (RBC) [Mass/Vol] 32.6 g/dL 29.9-35.2 [facility] MCV Auto (RBC) [Entitic vol] Ordered By: Karlie Pierce on 02-16-2025 MCV (RBC) [Entitic vol] 78.9 fL Low 80.0-94.0 [facility] Monocytes Auto (Bld) [#/Vol] Ordered By: Karlie Pierce on 02-16-2025 Monocytes (Bld) [#/Vol] 0.7 10 3/uL 0.3-0.8 [facility] Monocytes/100 WBC Auto (Bld) Ordered By: Karlie Pierce on 02-16-2025 Monocytes/100 WBC (Bld) 14.6 % High 1.7-12.0 [facility] Neutrophils Auto (Bld) [#/Vo l]Ordered By: Karlie Pierce on 02-16-2025 Neutrophils (Bld) [#/Vol] 3.0 10 3/uL 1.4-6.5 [facility] Neutrophils/100 WBC Auto (Bl d)Ordered By: Karlie Pierce on 02-16-2025 Neutrophils/100 WBC (Bld) 59.2 % 43.0-75.0 [facility] No Panel InformationOrdered By: Karlie Pierce on 02-16-2025 Eosinophils # (Auto) 0.2 10 3/uL 0.0-0.7 [facility] Immature Granulocyte # (Auto) 0.01 10 3/uL 0.00-0.03 [facility] Platelet mean volume Auto (B ld) [Entitic vol]Ordered By: Karlie Pierce on 02-16-2025 Platelet mean volume (Bld) [Entitic vol] 8.7 fL Low 9.5-13.5 [facility] Platelets Auto (Bld) [#/Vol] Ordered By: Karlie Pierce on 02-16-2025 Platelets (Bld) [#/Vol] 239 10 3/uL 150-450 [facility] RBC Auto (Bld) [#/Vol]Ordere d By: Karlie Pierce on 02-16-2025 RBC (Bld) [#/Vol] 6.11 10 6/uL High 4.70-6.10 [facility] Serum or plasma anion gap de terminationOrdered By: Karlie Pierce on 02-16-2025 Anion gap [Moles/Vol] 9.9 mmol/L [facility] Ambulatory Visit Summaryon 0 02-02-2025 Ambulatory Visit [...] With: Arabella Pavon Where: [facility] [place] [address]- Medications What How Much When Instructions Unchanged [...] signed up for this yet, please contact REBIScan at [phone] to get signed up today. Language Information Language assistance services are available as needed. Normal 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 1. Erectile dysfunction (N52.9: [...] E&M of New Patient Moderate 45-59 Min 56245 Urnls Dip Stick Auto w/o Microscopy POC 16031 Orders: sulfamethoxazole-tr imethoprim, 1 tab(s), Oral, q12hr for 4 week(s), 56 tab(s), Refill(s) 0, [id number], 191, cm, 02/02/25 14:18:00 EDT, Height/Length Dosing, 78, kg, 02/02/25 14:18:00 EDT, Weight Dosing Follow-up With When Contact Information Amy MILLER, Arabella Frias, URL In 8 weeks Additional Instructions: Patient Education [...] Protein Urine Dipstick: Trace (02/02/25 14:10:00) Specific [place] Urine Dipstick: 1.020 (02/02/25 14:10:00) Urine Appearance Urine Dipstick: Clear (02/02/25 14:10:00) Urine Color Urine Dipstick: Yellow (02/02/25 14:10:00) Urobilinogen Urine Dipstick: Normal 0.2-1 EU/dl (02/02/25 14:10:00) pH Urine Dipstick: 8.5 (02/02/25 14:10:00) Normal [facility] Comment on above: Result Comment: Elec tronically Signed By: Arabella Pavon\.br\Date and Time Signed: 02/02/25 16:08 EDT CULTURE THROATon 06-13-2021 CULTURE THROAT Culture Observations: NORMAL RESPIRATORY ZACHARY. Normal [facility] Comment on above: Performed By: #### T HRTCX #### [facility] [address] [address] [address] Paloma Roldan Cov[facility]on SARS-CoV-2 (COVID-19) RNA SOHAN+probe Ql (Unsp spec) Not detected Normal NOT DETECTED [facility] Comment on above: Result Comment: This test is not yet approved or cleared by the [place] FDA. When there are no FDA-approved or cleared tests available, and other criteria are met, FDA can make tests available under an emergency access mechanism called an Emergency Use Authorization (EUA). The EUA for this test is supported by the Hospice Admitting Clerk of Health and Human Service's (HHS's) declaration [...] SARS-CoV-2. Performed By: #### C VDTB #### [facility] [address] [place] [address] Dr. Paloma Roldan Covid-19 PCR ([facility])on 05-16 SARS-CoV-2 (COVID-19) RNA SOHAN+probe Ql (Unsp spec) Not detected Normal NOT DETECTED [facility] Comment on above: Result Comment: This test is not yet approved or cleared by the [place] FDA. When there are no FDA-approved or cleared tests available, and other criteria are met, FDA can make tests available under an emergency access mechanism called an Emergency Use Authorization (EUA). The EUA for this test is supported by the [place] of Health and Human Service's (HHS's) declaration [...] SARS-CoV-2. Performed By: #### C VDTBH #### [facility] [address] [place] [address] Dr. Paloma Roldan Vital Signs Date Time Vital Sign Value Performing Clinician Faci lity 03-11-2025 07:49-0400 Body height 187.96 cm Karlie Pierce MD Work Phone: [facility] 03-11-2025 07:49-0400 Body mass index (BMI) [Percentile] Per age and sex 51.4 % Karlie Pierce MD Work Phone: [facility] 03-11-2025 07:49-0400 Body mass index (BMI) [Ratio] 22.9 kg/m2 Karlie Pierce MD Work Phone: [facility] 03-11-2025 07:49-0400 Body weight 81.19 kg Karlie Pierce MD Work Phone: [facility] 03-11-2025 07:49-0400 Diastolic blood pressure 68 mm[Hg] Karlie Piecre MD Work Phone: [facility] 03-11-2025 07:49-0400 Heart rate 94 /min Karlie Pierce MD Work Phone: [facility] 03-11-2025 07:49-0400 Respiratory rate 14 /min Karlie Pierce MD Work Phone: [facility] 03-11-2025 07:49-0400 SaO2% (BldA) [Mass fraction] 97 % Karlie Pierce MD Work Phone: [facility] 03-11-2025 07:49-0400 Systolic blood pressure 108 mm[Hg] Karlie Pierce MD Work Phone: [facility] 02-16-2025 11:08-0400 Body height 187.96 cm Karlie Pierce MD Work Phone: [facility] 02-16-2025 11:08-0400 Body mass index (BMI) [Percentile] Per age and sex 47.9 % Karlie Pierce MD Work Phone: [facility] 02-16-2025 11:08-0400 Body mass index (BMI) [Ratio] 22.6 kg/m2 Karlie Pierce MD Work Phone: [facility] 02-16-2025 11:08-0400 Body weight 79.83 kg Karlie Pierce MD Work Phone: [facility] 02-16-2025 11:08-0400 Diastolic blood pressure 78 mm[Hg] Karlie Pierce MD Work Phone: [facility] 02-16-2025 11:08-0400 Heart rate 79 /min Karlie Pierce MD Work Phone: [facility] 02-16-2025 11:08-0400 Systolic blood pressure 119 mm[Hg] Karlie Pierce MD Work Phone: [facility] 01-24-2025 14:37-0400 Body height 187.96 cm Karlie Pierce MD Work Phone: [facility] 01-24-2025 14:37-0400 Body mass index (BMI) [Percentile] Per age and sex 49.6 % Karlie Pierce MD Work Phone: [facility] 01-24-2025 14:37-0400 Body mass index (BMI) [Ratio] 22.7 kg/m2 Karlie Pierec MD Work Phone: [facility] 01-24-2025 14:37-0400 Body weight 80.28 kg Karlie Pierce MD Work Phone: [facility] 01-24-2025 14:37-0400 Diastolic blood pressure 70 mm[Hg] Karlie Pierce MD Work Phone: [facility] 01-24-2025 14:37-0400 Heart rate 78 /min Karlie Pierce MD Work Phone: [facility] 01-24-2025 14:37-0400 Systolic blood pressure 109 mm[Hg] Karlie Pierce MD Work Phone: [facility] 01-10-2025 09:46-0400 Body height 187.96 cm Karlie Pierce MD Work Phone: [facility] 01-10-2025 09:46-0400 Body mass index (BMI) [Percentile] Per age and sex 49.9 % Karlie Pierce MD Work Phone: [facility] 01-10-2025 09:46-0400 Body mass index (BMI) [Ratio] 22.7 kg/m2 Karlie Pierce MD Work Phone: [facility] 01-10-2025 09:46-0400 Body weight 80.28 kg Karlie Pierce MD Work Phone: [facility] 01-10-2025 09:46-0400 Diastolic blood pressure 70 mm[Hg] Karlie Pierce MD Work Phone: [facility] 01-10-2025 09:46-0400 Heart rate 55 /min Karlie Pierce MD Work Phone: [facility] 01-10-2025 09:46-0400 Respiratory rate 16 /min Karlie Pierce MD Work Phone: [facility] 01-10-2025 09:46-0400 SaO2% (BldA) [Mass fraction] 98 % Karlie Pierce MD Work Phone: [facility] 01-10-2025 09:46-0400 Systolic blood pressure 110 mm[Hg] Karlie Pierce MD Work Phone: [facility] 10-26-2024 09:00-0400 Body weight 82.56 kg Christopher Flor DO Work Phone: [facility] 10-26-2024 09:00-0400 Diastolic blood pressure 72 mm[Hg] Christopher Flor DO Work Phone: [facility] 10-26-2024 09:00-0400 Heart rate 59 /min Christopher Flor DO Work Phone: [facility] 10-26-2024 09:00-0400 SaO2% (BldA) [Mass fraction] 96 % Christopher Flor DO Work Phone: [facility] 10-26-2024 09:00-0400 Systolic blood pressure 110 mm[Hg] Mamie Ray DO Work Phone: [facility] 09-02-2024 10:13-0500 Body height 187.96 cm [facility] 09-02-2024 10:13-0500 Body mass index (BMI) [Percentile] Per age and sex 47.2 % [facility] 09-02-2024 10:13-0500 Body mass index (BMI) [Ratio] 22.3 kg/m2 [facility] 09-02-2024 10:13-0500 Body weight 78.92 kg [facility] 09-02-2024 10:13-0500 Diastolic blood pressure 75 mm[Hg] [facility] 09-02-2024 10:13-0500 Heart rate 71 /min [facility] 09-02-2024 10:13-0500 Systolic blood pressure 110 mm[Hg] [facility] 06-01-2024 09:14-0500 Body height 187.96 cm [facility] 06-01-2024 09:14-0500 Body mass index (BMI) [Percentile] Per age and sex 61.8 % [facility] 06-01-2024 09:14-0500 Body mass index (BMI) [Ratio] 23.3 kg/m2 [facility] 06-01-2024 09:14-0500 Body weight 82.55 kg [facility] 06-01-2024 09:14-0500 Diastolic blood pressure 71 mm[Hg] [facility] 06-01-2024 09:14-0500 Heart rate 70 /min [facility] 06-01-2024 09:14-0500 Systolic blood pressure 119 mm[Hg] [facility] 03-18-2024 09:07-0400 Body height 187.96 cm [facility] 03-18-2024 09:07-0400 Body mass index (BMI) [Percentile] Per age and sex 58.6 % [facility] 03-18-2024 09:07-0400 Body mass index (BMI) [Ratio] 22.9 kg/m2 [facility] 03-18-2024 09:07-0400 Body weight 81.19 kg [facility] 03-18-2024 09:07-0400 Diastolic blood pressure 76 mm[Hg] [facility] 03-18-2024 09:07-0400 Heart rate 73 /min [facility] 03-18-2024 09:07-0400 Systolic blood pressure 117 mm[Hg] [facility] 08-28-2023 09:45-0500 Body height 187.96 cm [facility] 08-28-2023 09:45-0500 Body mass index (BMI) [Percentile] Per age and sex 55.5 % [facility] 08-28-2023 09:45-0500 Body mass index (BMI) [Ratio] 22.3 kg/m2 [facility] 08-28-2023 09:45-0500 Body weight 78.92 kg [facility] 08-28-2023 09:45-0500 Diastolic blood pressure 72 mm[Hg] [facility] 08-28-2023 09:45-0500 Heart rate 65 /min [facility] 08-28-2023 09:45-0500 Systolic blood pressure 109 mm[Hg] [facility] 08-21-2023 09:30-0500 Body height 187.96 cm Daily Nagel Other [facility] Other 08-21-2023 09:30-0500 Body mass index (BMI) [Ratio] 22.85 kg/m2 Daily Nagel Other [facility] Other 08-21-2023 09:30-0500 Body weight 80.74 kg Daily Nagel Other [facility] Other 08-21-2023 09:30-0500 Diastolic blood pressure 72 mm[Hg] Daily Nagel Other [facility] Other 08-21-2023 09:30-0500 SaO2% (BldA) [Mass fraction] 96 % Daily Shona Other [facility] Other 08-21-2023 09:30-0500 Systolic blood pressure 112 mm[Hg] Daily Shona Other [employer] Other 07-21-2023 08:30-0500 Body height 187.96 cm Karlie Pierce Other [facility] 07-21-2023 08:30-0500 Body mass index (BMI) [Ratio] 22.98 kg/m2 Karlie Pierce Other [facility] Other 07-21-2023 08:30-0500 Body weight 81.19 kg Karlie Pierce Other [facility] 07-21-2023 08:30-0500 Diastolic blood pressure 74 mm[Hg] Karlie Pierce Other [facility] 07-21-2023 08:30-0500 Systolic blood pressure 116 mm[Hg] Karlie Pierce Other [facility] 11-13-2022 09:30-0400 Body height 186.69 cm Karlie Pierce Other [facility] Other 11-13-2022 09:30-0400 Body mass index (BMI) [Ratio] 22.77 kg/m2 Karlie Pierce Other [facility] Other 11-13-2022 09:30-0400 Body weight 79.38 kg Karlie Pierce Other [facility] Other 11-13-2022 09:30-0400 Diastolic blood pressure 72 mm[Hg] Karlie Pierce Other [facility] Other 11-13-2022 09:30-0400 SaO2% (BldA) [Mass fraction] 98 % Karlie Pierce Other [facility] Other 11-13-2022 09:30-0400 Systolic blood pressure 108 mm[Hg] Karlie Pierce Other [facility] Other 09-04-2022 10:00-0500 Body height 186.69 cm Karlie Pierce Other [facility] Other 09-04-2022 10:00-0500 Body mass index (BMI) [Ratio] 22.25 kg/m2 Karlie Pierce Other [facility] Other 09-04-2022 10:00-0500 Body weight 77.57 kg Karlie Pierce Other [facility] Other 09-04-2022 10:00-0500 Diastolic blood pressure 60 mm[Hg] Karlie Pierce Other [facility] Other 09-04-2022 10:00-0500 Systolic blood pressure 102 mm[Hg] Karlie Pierce Other [facility] Other Encounters Encounter Date Encounter Type Care Provider Facility Start: 03-30-2025 ambulatory Arabella Reyes Facility :[facility] Start: 03-18-2025 ambulatory Karlie Pierce Facility :[facility] Start: 03-11-2025 End: 03-11-2025 ambulatory Karlie Pierce MD Work Phone: [facility] Work Phone: Start: 03-11-2025 End: 03-11-2025 Patient encounter procedure Karlie Pierce MD -[facility] Work Phone: Start: 03-07-2025 Registered Recurring Karlie Pierce MD -[facility] Start: 02-25-2025 End: 02-25-2025 ambulatory Karlie Pierce MD Work Phone: [facility] Work Phone: Start: 02-25-2025 End: 02-25-2025 Patient encounter procedure Navarro Dixon -[facility] Work Phone: Start: 02-23-2025 Registered Recurring Karlie Pierce MD -[facility] Start: 02-16-2025 End: 02-16-2025 ambulatory Karlie Pierce MD Work Phone: [facility] Work Phone: Start: 02-16-2025 End: 02-16-2025 Patient encounter procedure Karlie Pierce MD -[facility] Work Phone: Start: 02-02-2025 End: 02-02-2025 ambulatory Arabella J Galea Facility:[facility] Start: 02-02-2025 End: 02-02-2025 Patient encounter procedure Arabella J Galea [facility] Start: 01-27-2025 ambulatory Arabella Galea Facility:[facility] Start: 01-24-2025 End: 01-24-2025 ambulatory Karlie Pierce MD Work Phone: [facility] Work Phone: Start: 01-24-2025 End: 01-24-2025 Patient encounter procedure Karlie Pierce MD -[facility] Work Phone: Start: 01-10-2025 End: 01-10-2025 ambulatory Karlie Pierce MD Work Phone: [facility] Work Phone: Start: 01-10-2025 End: 01-10-2025 Patient encounter procedure Elif Funes [employer]-EMPLOYMENT LAW ATTORNEY- -[facility] Work Phone: Start: 10-26-2024 End: 10-26-2024 Bamboo flowsheet Christopher Flor DO Work Phone: [facility] Start: 10-26-2024 End: 10-26-2024 Bamboo flowsheet Christopher Flor DO Work Phone: [facility] Start: 10-26-2024 End: 10-26-2024 Office outpatient new 45 minutes Nadeemer Flor DO Work Phone: [facility] Comment on above: Chronic tension-type headache, not intractable (Primary Dx) Start: 10-26-2024 End: 10-26-2024 ambulatory AMANDAOPHER FLOR Not Available Start: 09-02-2024 End: 09-02-2024 ambulatory [facility] Work Phone: Start: 09-02-2024 End: 09-02-2024 Patient encounter procedure [facility] Work Phone: Start: 06-01-2024 End: 06-01-2024 ambulatory [facility] Work Phone: Start: 06-01-2024 End: 06-01-2024 Patient encounter procedure [facility] Work Phone: Start: 03-18-2024 End: 03-18-2024 ambulatory [facility] Work Phone: Start: 03-18-2024 End: 03-18-2024 Patient encounter procedure [facility] Work Phone: Start: 08-28-2023 End: 08-28-2023 ambulatory [facility] Work Phone: Start: 08-28-2023 End: 08-28-2023 Patient encounter procedure [facility] Work Phone: Start: 08-21-2023 End: 08-21-2023 ambulatory Daily Nagel Other [facility] Other Start: 08-21-2023 Office outpatient visit 15 minutes Daily Shona [facility] Start: 07-21-2023 End: 07-21-2023 ambulatory Karlie Pierce Other [facility] Other Start: 07-21-2023 Office outpatient visit 15 minutes Karlie Pierce [facility] Start: 07-21-2023 End: 07-21-2023 Patient encounter procedure [facility] Work Phone: Start: 06-09-2023 End: 06-09-2023 ambulatory Karlie Pierce Other [facility] Other Start: 06-09-2023 Telephone encounter Karlie Pierce [facility] Start: 11-13-2022 End: 11-13-2022 ambulatory Karlie Pierce Other [facility] Other Start: 11-13-2022 Office outpatient visit 15 minutes Karlie Pierce [facility] Start: 09-04-2022 End: 09-04-2022 ambulatory Karlie Pierce Other [facility] Other Start: 09-04-2022 Office outpatient visit 15 minutes Karlie Pierce [facility] Start: 05-07-2022 End: 05-30-[address] KARLIE PIERCE Facility:[facility] Start: 05-02-2022 Child health medical examination Karlie Pierec Other [facility] Other Start: 05-02-2022 Well child visit Karlie Pierce Other [facility] Other Start: 06-13-2021 End: 06-13-2021 ambulatory MOI TREJO Facility:[facility] Start: 06-12-2021 End: 06-12-[address] KARLIE PIERCE Facility:[facility] Procedures Date Procedure Procedure Detail Performing Clinician Depression screening Karlie Pierce Other Plan of Treatment Date Care Activity Detail Author Start: 03-14-2025 Influenza vaccination Influenz a Vaccine (Season Ended) [facility] Start: 01-10-2025 End: 01-10-2025 Patient encounter procedure 01/10/2025 9:40 AM EDT Office Visit [facility] [address] [facility] [address] [place] [address] Elif Funes NP [address] [place] [id number] [facility] Start: 10-26-2024 End: 10-26-2024 Patient encounter procedure 10/26/2024 9:00 AM EDT Office Visit [facility] [address] [address] Mamie Ray DO [address] [place] [address] Arrived [facility] Comment on above: Arrived EKG 12 channel panel [facility] Patient Education Low back pain in adults [facility] Work Phone: XR Cervical spine 5 Views [facility] XR Lumbar spine 2 or 3 Views [facility] XR Thoracic spine 3 Views [facility] Immunizations Immunization Date Immunization Notes Care Provider Sus[facility] 05-05-2021 COVID-19 Vaccine Pfizer - Documentation Purposes Only Karlie Pierce Other [facility] 07-18-2006 influenza virus vaccine, unspecified formulation Mamie Ray DO Work Phone: [facility] Payers Date Payer Category Payer Self-pay 2019 Medicaid (Managed Care) [facility] MEDICAID [id number] 2005 Unknown [id number] 1259 2005 Unknown [id number] [id number]. 727 2005 Unknown [id number] [id number]. 727 1973 Unknown [id number] [id number]. 593 1973 Unknown [id number] [id number]. 593 1973 Unknown [id number] [id number]. 593 1973 Unknown [id number] [id number]. 593 1959 Unknown [id number] 1959 Unknown [id number] Medicaid [id number] Unknown Other1 (STD) [id number] Unknown [id number] 531 Social History Date Type Detail Facility Unknown if ever smoked [employer] Other Sex Assigned At [facility] Start: 2005 Sex Assigned At Male [facility] Start: 03-18-2024 End: 02-02-2025 Tobacco smoking status NHIS Never smoked tobacco (finding) [facility] Start: 04-03-2011 End: 06-01-2024 Sex Male (finding) [facility] Tobacco smoking stat us [facility]IS Tobacco smoking consumption unknown [facility] Start: 2005 Sex assigned at Not on file [facility] Tobacco smoking status Never [facility] Sexual Orientation [facility] Clinical Notes 09-04-2022 to 02-02-2025 Note Date [...] Follow these instructions at home: Medicines Take crkv-vij-rubneoe and prescription medicines only as told by [...] provider. Document Revised: 09/26/2021 Document Reviewed: 09/26/2021 [employer] Patient Education 2023 [employer] Follow Up Care 01/27/2025 10:12:15 With:Arabella Pavon J, URL Address: When:Within 8 Week(s) [facility] 02-02-2025 Note Patient Education Urology Erectile Dysfunction [...] these instructions at home: Medicines ??? Take cvyi-toz-nxugeks and prescription medicines only as told by [...] Do not u (more content not included)... [facility] 01-10-2025 Evaluation note Diagnosis Onset Date Resolution Encounter prior to initiation of medication acute January 10, 2025 9:41am Chronic tension-type headache, not intractable chronic January 10, 2025 9:41am [facility] Work Phone: 1(775) 605-220506-30-2025 Evaluation note* Diagnosis Onset Date Resolution Status Admit Date Encounter prior to initiatio n of medication acute January 10, 2025 9:41am Chronic tension-type headach e, not intractable chronic January 10, 2025 9:41am Trapezius muscle spasm acute ly 2024 2:13pm Chronic tension-type headach e, not intractable chronic January 24, 2025 2:13pm Fatigue acute February 16 11:04am Muscle pain acute February 16 025 11:04am Trapezius muscle spasm acute Au 2024 11:04am Chronic tension-type headach e, not intractable chronic February 16, 2025 11:04am [facility] Work Phone: 1(174) 253-369806-30-2025 Evaluation note* Diagnosis Onset Date Resolution Status Admit Date Encounter prior to initiatio n of medication acute January 10, 2025 9:41am Chronic tension-type headach e, not intractable chronic January 10, 2025 9:41am Trapezius muscle spasm acute ly 2024 2:13pm Chronic tension-type headach e, not intractable chronic January 24, 2025 2:13pm Anxiety, generalized acute Augu st 2024 11:04am Fatigue acute February 16 11:04am Muscle pain acute February 16, 025 11:04am Trapezius muscle spasm acute Au jj 2024 11:04am Chronic tension-type headach e, not intractable chronic February 16, 2025 11:04am [facility] Work Phone: 1(474) 214-801306-30-2025 Evaluation note* Diagnosis Onset Date Resolution Status [...] back pain acute March 11, 2025 8:46am [facility] Work Phone: 1(555) 603-404704-15-2025 History of Present illness Narrative* Mamie Ray, - 10/26/2024 9:00 AM EDT Images from the original note were not included. Chief Complaint: tension type headache Subjective Odilia Jean, 19 y.o., male Patient presents today for a neurologic consult at the request of Dr. Peirce for tension type headache. Patient reports he [...] , wrist extensors , wrist flexor , x ray tech strength 5/5. LUE Strength deltoid , biceps , triceps , wrist extensors , wrist flexor , x ray tech strength 5/5. RLE Strength illopsoas, quadriceps, tibialis [...] reflex 2+ . Miner's sign negative. Coordination: Bbjzuv-vy-tknl testing and rapid alternating movements are normal [...] plan, and return instructions [id number] Evaluation note* Diagnosis Onset Date Resolution Status Admit Date ADHD acute March 18, 2024 9:04am Anxiety, generalized acute Sept 2023 9:04am Constipation acute May 9:12am Trapezius muscle spasm acute No vember 2023 9:12am [facility] Work Phone: 1(327) 923-353902-08-2024 Evaluation note* Encounter Date Diagnosis Assessment Notes [...] symptoms. Pt and his grandmother verbalize understanding. 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 Agrees to try trazodone. Jul, ADHD (ICD-10 - F90.9) Pt considering d/c strattera after basketball season if problem w insomnia continues. Otherwise it is helping w his concentration well. [employer] Other 05-03-2023 Evaluation note* Encounter Date Diagnosis [...] Will start w lowest dose of Intuniv. [employer] Other 02-22-2023 Evaluation note* Encounter Date Diagnosis [...] should not increase is anxiety or insomnia. [employer] Other Evaluation + Plan note Future Appointments Appointment Date:03/30/2025 09:00:00 AM Scheduled Provider:Arabella Pavon Location:[facility] Appointment Type:URO Office Visit [facility] Evaluation noteNo InformationNort [employer] Other Evaluation noteNo assessment information available [facility] Work Phone: Evaluation note* Diagnosis Onset Date Resolution Status Admit Date Tension type headache acute Aug 9:57am [facility] Work Phone: Evaluation note* Diagnosis Chronic tension-type headache, not intractable- Primary Chronic tension type headache documented [facility] encounter [facility] Diagnosis Onset Date Resolution Status Admit Date Encounter prior to initiatio n of medication acute January 10, 2025 9:41am Chronic tension-type headach e, not intractable chronic January 10, 2025 9:41am [facility] Work Phone: History general Narrative - Reported* Type Description Date Medical History ADHD Medical History Olecranon bursitis, left elbow Medical History Anxiety, generalized [employer] Other [facility] general Narrative - Reported* Type Description Date Medical History ADHD Medical History Olecranon bursitis, left elbow Medical History Anxiety, generalized Surgical History Problem Title : past surgical history reviewed, Problem Description : past surgical history reviewed, Problem Comment : reviewed - no changes required, Problem Status : Active, [employer] Other Hiscfde general Narrative - Reported* Type Description Date Medical History ADHD Medical History Olecranon bursitis, left elbow Medical History Anxiety, generalized Surgical History No Surgical history information [employer] Other Hospital course Narrative No data available for this section [facility] Progress note No data available for this section [facility] Reason for referral (narrative)No reason for referral [facility] Work Phone: Reason for visit Narrative* Consultation (Routine) - Closed Specialty Diagnoses / Procedures Referred By Contac t Referred To Contact Neurology Diagnoses Headache, unspecified Tension-type headache, unspecified, not intractable Procedures RI OFFICE/OUTPATIENT NEW LOW MDM 30 MINUTES Karlie Pierce MD Phone: tel: fax: Mamie Ray, [address] [address] Phone: tel: fax: Referral ID Status Reason Start Date Expiration Date V isits Requested Visits Authorized [id number] Closed Consult and Treat 09/07/2024 03/06/2025 1 1 [facility] Summary Purpose Family History No Family History Records FoundNo Family History Records Found No data available for this section No Family History Records FoundNo Family History Records Found Advance Directives No Advanced Directives Records Found Advance Directive Response Recorded Date/ Time Advance [...] and content) DATE CREATED AUTHOR 06/05/2022 [facility] DATE CREATED AUTHOR AUTHOR'S ORGANIZ ATION 10/27/[address] [facility] EPIC DATE CREATED AUTHOR AUTHOR'S ORGANIZ ATION 03/20/2025 [facility] DATE CREATED AUTHOR AUTHOR'S ORGANIZ ATION 03/23/[address] [facility] REASON FOR VISIT (unrecogniz ed section and [...] September 02, 2024 End: September 02, 2024 [facility] Department Chair Relationship Specialty Start Date End Date Karlie Pierce MD [address] [place] [facility] [address] PCP - General Family Medicine 09/08/24 Natural Sciences Department Chair Relationship Specialty Start Date End Date Karlie Pierce MD [address] [place] [facility] [address] PCP - General Family Medicine 09/08/24 Team Status: Inactive Member Role Status Dates Elif Funes APRN-EMPLOYMENT LAW ATTORNEY-Brittany Attending Provider Active Start: January 10, 2025 [...] BE BASED ON THE PRIMARY CLINICAL RECORDS. [facility] [employer] provides no warranty or guarantee of the accuracy or completeness of information in this document.
[2025-03-25 13:56] LABS: Hematocrit 47.0 % (42.0-54.0); Hemoglobin 15.5 g/dL (14.0-18.0); Immature Granulocytes Abs Auto 0.01 10^3/uL (0.00-0.03); Immature Granulocytes Pct Auto 0.2 % (0.0-0.5); Lymphocytes Absolute Auto 1.2 10^3/uL (1.2-3.8); Mean Corpuscular HGB Conc 33.0 g/dL (29.9-35.2); Mean Corpuscular Hemoglobin 25.7 pg (25.9-34.0); Mean Corpuscular Volume 77.9 fL (80.0-94.0); Platelet Count 252 10^3/uL (150-450); Red Blood Count 6.03 10^6/uL (4.70-6.10)
[2025-03-25 16:24] LABS: White Blood Count 4.9 10^3/uL (4.0-11.0)
[2025-03-25 16:25] LABS: Mono Screen NEGATIVE (NEGATIVE)
== END 2025-03-25 12:55 | disposition home or self-care (01) ==
PROVIDERS: PCP Family Medicine; Visit Provider Family Medicine
DX: R53.82 Chronic fatigue, unspecified (principal); R79.89 Other specified abnormal findings of blood chemistry
CPT/HCPCS: 36415; 85025; 86308

== ENCOUNTER 2025-04-05 10:06 | Outpatient (OUT) | payer OTHER, SELFPAY ==
--- NOTE | 2025-04-05 10:09 | US_ITS ---
The [address] [address] Patient Name: ODILIA RICO MRN: [id number] date: 2005 Sex: M Assigned Patient Location: Current Patient Location: [place] Accession/Order Number: [id number] Exam Date: 04/05/2025 10:30 Report Date: 04/05/2025 11:13 At the request of: MIHAI VELAZQUEZ NP Procedure: US scrotum SCROTAL ULTRASOUND WITH DUPLEX IMAGING COMPARISON: None CLINICAL DATA: Testicular and penile pain for months with recent worsening. The right testis measures 4.1 x 2.8 x 2.8 cm . The left testis measures 4.0 x 3.2 x 2.0 cm. Echotexture is homogeneous. No intratesticular masses are identified. There is documentation of bilateral duplex and color Doppler testicular blood flow. The epididymal heads are similar in size. No hydrocele is seen. There are prominent vessels adjacent to both testes with increased blood flow on Valsalva suggesting varicoceles. US/US scrotum IMPRESSION: NO INTRATESTICULAR MASS OR TORSION. BILATERAL VARICOCELES. Impression dictated by: Jolly Wolff M.D. 04/05/2025 11:13 AM Dictation Location: [place] [address] Electronically authenticated by: [id number] Y Date: 04/05/2025 11:13
--- OUTSIDE RECORDS SUMMARY | 2025-04-05 10:11 | XMS_ITS | CCD ---
Author Organization [facility] Care Team Providers Care Equipment Cleaner And Tester Name Role Phone DR KARLIE PIERCE Admitting Unavailable STAN, DR KARLIE Acevedo Attending Unavailable STAN, DR KARLIE Acevedo Primary Care Unavailable STAN, DR KARLIE Acevedo Consulting Unavailable AICHHOLZ, GREASE CUP FILLER ANGEL Admitting Unavailable AICHHOLZ, GREASE CUP FILLER ANGEL Attending Unavailable STAN, DR KARLIE Acevedo Primary Care Unavailable AICHHOLZ, GREASE CUP FILLER ANGEL Consulting Unavailable AICHHOLZ, GREASE CUP FILLER ANGEL Admitting Unavailable AICHHOLZ, GREASE CUP FILLER ANGEL Attending Unavailable STAN, DR KARLIE Acevedo Primary Care Unavailable STAN, DR KARLIE Acevedo Admitting Unavailable STAN, DR KARLIE Acevedo Attending Unavailable STAN, DR KARLIE Acevedo Primary Care Unavailable Karlie Pierce Unavailable Daily Nagel Unavailable Karlie Pierce MD Primary Care Provider MAMIE RAY Attending Unavailable KARLIE PIERCE Referring Unavailable Marin LAU-MEAT PROCESSOR-Elif Soto Attending Provider Karlie Pierce MD Primary Care Provider Karlie Pierce MD Attending Provider KARLIE PIERCE Primary Care Physician [phone] Navarro Dixon DO Attending Provider [phone] Karlie Pierce Attending Unavailable Karlie Pierce Primary Care Unavailable Karlie Pierce Admitting Unavailable Arabella Reyes Attending Unavailable Arabella Reyes Attending Unavailable Arabella Reyes Attending Unavailable Allergies Allergy Classification Reported Allergen(s) Allergy Type Date of Onset Reaction(s) Facility (2 sources) patient allergy list reviewed by nurse or physicia Propensity to adverse reactions 9 Comment:Done [employer] Other (2 sources) Allergies Reconciled Propensity to adverse reactions Unknown [employer] Other (1 source) No Known Medication Allergies; Translations: [No Known Medication Allergies] Propensity to adverse reactions (disorder) [facility] Repository Medications Current Medications Medication Drug Class(es) Dates Sig (Normalized) Sig (Original) azithromycin 250 mg oral tablet (1 source) Macrolide Antimicrobial Start: 08-21-2023 Azithromycin 250 MG 2 tablet on the first day, then 1 tablet daily for 4 days Orally Once a day for 5 day(s) Aug, Active doxycycline hyclate 100 mg oral capsule (1 source) Tetracycline-class Drug Start: 03-30-2025 End: 04-27-2025 take 1 capsule by mouth twice daily doxycycline hyclate 100 mg Cap 100 mg = 1 cap(s), Oral, BID, X 4 week(s), # 56 cap(s), Refills(s) 0, Pharmacy: [facility]/pharmacy #[id number], 191, cm, 03/30/25 15:03:00 EDT, Height/Length Dosing, 78, kg, 03/30/25 15:03:00 EDT, Weight Dosing Start Date: 03/30/25 Stop Date: 04/27/25 Status: Ordered Quantity: 56.0 Unit: cap(s) Repeat number: 1 escitalopram 5 mg oral tablet (15 sources) Serotonin Reuptake Inhibitor Start: 03-30-2025 escitalopram 5 mg oral tablet 5 mg = 1 tab(s), Refills(s) 0 Start Date: 03/30/25 Status: Ordered Repeat number: 1 Start: 02-16-2025 End: 02-16-2025 take 1 tablet [...] Ziegler ( ) take 1 capsule by [facility] every twenty-four hours Strattera 25 [...] Chronic Attention-deficit, conduct, and disruptive behavior disorders (18 sources) Attention deficit hyperactivity disorder; Translations: [Attention-deficit [...] muscle spasm; Translations: [Spasm of muscle] Onset: 03-25-2025 06-01-2024 Episodic Other connective tissue disease (6 sources) Muscle pain; Translations: [Myalgia, unspecified site] 02-16-2025 Episodic Other gastrointestinal disorders (8 sources) Constipation; Translations: [Constipation, unspecified] 08-28-2023 Episodic Other gastrointestinal disorders (1 source) Constipation, unspecified; Translations: [Constipation, unspecified] 06-01-2024 Episodic Other injuries and conditions due to external causes (3 sources) History of fall; Translations: [History of falling] Episodic Other male genital disorders (2 sources) Male erectile dysfunction, unspecified; Translations: [Erectile dysfunction] [...] Spondylosis; intervertebral disc disorders; other back problems (8 sources) Neck pain; Translations: [Low back pain] [...] Test Name Value Interpretation Reference Range Facility Ambulatory Visit Summaryon 0 03-30-2025 Ambulatory Visit Summary Ambulatory Visi t Summary ODILIA RICO :2005 Visit Date:03/30/2025 Ambulatory Visit Instructions Your Diagnosis Erectile disorder Your Care Team Attending Physician - Arabella Pavon Primary Care Physician - KARLIE PIERCE MD This Is Your Medications List escitalopram (escitalopram 5 mg oral tablet) Procedures Performed None. Discharge Vitals Temperature (Temporal Artery) 37 ???C Heart Rate (Peripheral) 69 Respiratory Rate 18 Blood Pressure 111/77 Height 191 cm Height 75 in Weight 78 kg Weight 171.96 lb BMI 21.38 What to do next Scheduled Follow-Up Appointments Friday 8:20 AM EDT With: Arabella Pavon Where: [facility] [address] [place] [address]- Medications What How Much When Instructions Unchanged escitalopram (escitalopram 5 mg oral tablet) 1 Tablets Allergies No Known Medication Allergies Problems Ongoing - Any problem that you [...] signed up for this yet, please contact [employer] at [phone] to get signed up today. Language Information Language assistance services are available as needed. Corinne Figueredo [facility] Urology Office/Clinic Noteon 03-30-2025 Urology Office/Clinic Note Urology Office/Clinic Note Chief Complaint 8 week f/u HPI Staff 19 year old male presents for 8 week f/u Prev dx: Erectile dysfunction Bactrim x 4 weeks IPSS score of 15 today. Straining almost always for the past 5-6 months. Intermittency and urgency about half the time. Frequency less than half the time. Denies any visible blood in urine at any time. Pt states that he does experience some burning and pressure with urination in his urethra and up into his bladder. Denies urinary leakage at any time. PVR today is 0ml. States that he has noticed a tightness and pressure at times in his prostate region while sitting if he bounces around at all. Pt states that he experiences difficulty achieving a full erection. Has difficulty keeping an erection to satisfaction. History of Present Illness Staff HPI reviewed and agree. Review of Systems PHQ Score Initial Depression Screen Score: 0 SCORE no fever, chills, malaise, myalgia. no rash/lesions. no chest pain, palpitations, or SOB. no abdominal pain, nausea, vomiting. no unilateral calf swelling, redness, pain Physical Exam Vitals & Measurements T: 37 ???C(Temporal Artery) HR: 69(Peripheral) RR: 18 BP: 111/77 HT: 75 in HT: 191 cm WT: 78 kg WT: 171.96 lb BMI: 21.38 General: nontoxic, well-nourished, appears stated age Mouth: moist mucosa Lungs: normal respiratory effort Cardio: regular rate, good distal perfusion Abdomen: nondistended, no suprapubic distention or tenderness, no CVA tenderness Neurologic: Grossly normal Skin: No rashes or suspicious lesions Assessment/Plan IPSS 15 1. Erectile disorder (N52.9: Male erectile dysfunction, unspecified) UA today negative for blood or infection AMINA 1(2) Pt here for follow up for erectile complaints. 02/02/25: Pt reports that about a year ago [...] anxiety, heart or vascular disease or DM. Pt was given Bactrim DS BID x4 weeks. TODAY: Pt finished 4-week course of Bactrim last week and denies this helping his symptoms. He reports that he continues to have difficulty achieving full erections. He also c/o burning with urination, bladder pressure, straining to start stream and intermittency. Pt continues to deny STD concerns. Discussed changing antibiotic therapy and ordering scrotal US. Discussed differentials with patient including prostatitis/epididy mitis. Pt agreeable to plan. If symptoms continue after treatment and scrotal US negative, will discuss case with MD. -Doxycycline 100mg BID x4 weeks, take with food -Scrotal US at [facility], will review results at follow up unless emergent finding -NSAIDs for discomfort -Scrotal support -F/U 6 weeks Ordered: 40365 Measure Post Void residual urine and/or bladder capacity by US- non-imaging E&M of Est. Patient Moderate 30-39 Min 75051 Urnls Dip Stick Auto w/o Microscopy POC 39816 US Scrotum (Contents) Orders: doxycycline, 100 mg = 1 cap(s), Oral, BID, X 4 week(s), # 56 cap(s), Refills(s) 0, Pharmacy: [facility]/pharmacy #[id number], 191, cm, 03/30/25 15:03:00 EDT, Height/Length Dosing, 78, kg, 03/30/25 15:03:00 EDT, Weight Dosing sulfamethoxazole-tr imethoprim, 1 tab(s), Oral, q12hr for 6 week(s), 84 tab(s), Refill(s) 0, [id number], 191, cm, 02/02/25 14:18:00 EDT, Height/Length Dosing, 78, kg, 02/02/25 14:18:00 EDT, Weight Dosing Follow-up With When Contact Information Arabella Pavon, PHILIP Within 6 weeks Additional Instructions: scrotal US Patient Education Erectile Dysfunction Problem List/Past Medical History Ongoing Attention deficit hyperactivity disorder Generalized anxiety disorder Neck pain Historical No qualifying data Procedure/Surgical History None. Medications doxycycline hyclate 100 mg Cap, 100 mg= 1 cap(s), Oral, BID escitalopram 5 mg oral tablet, 5 mg= 1 tab(s) Allergies No Known Medication Allergies Social History Alcohol Never., 02/01/2025 Substance Abuse Never., 02/01/2025 Tobacco Never (less than 100 in lifetime) Tobacco Use:. Never Smokeless Tobacco Use:., 02/02/2025 Family History Family history is negative Immunizations Vaccine Date Status meningococcal conjugate vaccine 05/01/2023 Recorded SARS-CoV-2 (COVID-19) mRNA BNT-162b2 vax 05/05/2021 Recorded SARS-CoV-2 (COVID-19) mRNA BNT-162b2 vax 04/11/2021 Recorded human papillomavirus vaccine 09/01/2018 Recorded meningococcal conjugate vaccine 01/01/2018 Recorded human papillomavirus vaccine 01/01/2018 Recorded diphtheria/pe (more content not included)... Normal [facility] Comment on above: Result Comment: Elec tronically Signed By: Arabella Pavon\.br\Date and Time Signed: 03/30/25 15:27 EDT Laboratory - Chemistry and C hemistry - challengeOrdered By: Navarro Dixon on 02-25-2025 Bilirubin Ql (U) Negative [facility] Glucose (U) [Mass/Vol] Negative [facility] Ketones Ql (U) Negative [facility] pH (U) 8.0 [pH] [facility] Specific gravity (U) [Rel density] 1.010 [facility] Urobilinogen (U) [Mass/Vol] 0.2 mg/dL [facility] Laboratory - Specimen inform ationOrdered By: Navarro Dixon on 02-25-2025 Appearance (U) cloudy [facility] Color (U) yellow [facility] Laboratory - UrinalysisOrder ed By: Navarro Dixon on 02-25-2025 Leukocyte esterase Test strip Ql (U) Negative [facility] Nitrite Ql (U) Negative [facility] Protein Ql (U) + [facility] No Panel InformationOrdered By: Navarro Dixon on 02-25-2025 Urine Occult Blood Negative [facility] Basophils Auto (Bld) [#/Vol] Ordered By: Karlie Pierce on 02-16-2025 Basophils (Bld) [#/Vol] 0.0 10 3/uL 0.0-0.1 [facility] Basophils/100 WBC Auto (Bld) Ordered By: Karlie Pierce on 02-16-2025 Basophils/100 WBC (Bld) 0.8 % 0.2-2.0 F [facility] Eosinophils/100 WBC Auto (Bl d)Ordered By: Karlie Pierce on 02-16-2025 Eosinophils/100 WBC (Bld) 3.2 % 0.9-7.0 [facility] Erythrocyte distribution wid th Auto (RBC) [Ratio]Ordered By: Karlie Pierce on 02-16-2025 Erythrocyte distribution width (RBC) [Ratio] 13.3 % 11.0-15.0 [facility] Glomerular filtration rate ( GFR) estimation in non- AmericanOrdered By: Karlie Pierce on 02-16-2025 GFR/1.73 sq M.predicted among non-blacks MDRD (S/P/Bld) [Vol rate/Area] mL/min/{1.73_m2} >=60 mL/min/1.73m 2 [facility] Hematocrit Auto (Bld) [Volum e fraction]Ordered By: Karlie Pierce on 02-16-2025 Hematocrit (Bld) [Volume fraction] 48.2 % 42.0-54.0 [facility] Hemoglobin [Mass/volume] in BloodOrdered By: Karlie Pierce on 02-16-2025 Hemoglobin (Bld) [Mass/Vol] 15.7 g/dL 14.0-18.0 [facility] Laboratory - Chemistry and C hemistry - challengeOrdered By: Karlie Pierce on 02-16-2025 Calcium [Mass/Vol] 9.6 mg/dL 8.5-10.1 [facility] Chloride [Moles/Vol] 104 mmol/L 98-107 [facility] CK [Catalytic activity/Vol] 230 U/L 39-308 [facility] CO2 [Moles/Vol] 32.8 mmol/L High 21.0-32.0 [facility] Creatinine [Mass/Vol] 0.89 mg/dL 0.70-1.30 [facility] GFR/1.73 sq M.predicted MDRD (S/P/Bld) [Vol rate/Area] mL/min/{1.73_m2} >=60 mL/min/1.73m 2 [facility] Glucose [Mass/Vol] 98 mg/dL 74-106 [facility] Potassium [Moles/Vol] 4.7 mmol/L 3.5-5.1 [facility] Sodium [Moles/Vol] 142 mmol/L 136-145 [facility] TSH Qn 1.020 m[IU]/L 0.516-4.130 [facility] Urea nitrogen [Mass/Vol] 10.0 mg/dL 6.4-19.3 [facility] Urea nitrogen/Creatinine [Mass ratio] 11.2 mg/mg [facility] Laboratory - Hematology and Cell countsOrdered By: Karlie Pierce on 02-16-2025 Immature granulocytes/100 WBC (Bld) 0.2 % 0.0-0.5 [facility] Leukocytes [#/volume] correc phuc for nucleated erythrocytes in Blood by Automated counOrdered By: Karlie Pierce on 02-16-2025 WBC corrected for nucl RBC Auto (Bld) [#/Vol] 5.0 10 3/uL 4.0-11.0 [facility] Lymphocytes Auto (Bld) [#/Vo l]Ordered By: Kalrie Pierce on 02-16-2025 Lymphocytes (Bld) [#/Vol] 1.1 10 3/uL Low 1.2-3.8 [facility] Lymphocytes/100 WBC Auto (Bl d)Ordered By: Karlie Pierce on 02-16-2025 Lymphocytes/100 WBC (Bld) 22.0 % 20.5-60.0 [facility] MCH Auto (RBC) [Entitic mass ]Ordered By: Karlie Pierce on 02-16-2025 MCH (RBC) [Entitic mass] 25.7 pg Low 25.9-34.0 [facility] MCHC Auto (RBC) [Mass/Vol]Or dered By: Karlie Pierce on 02-16-2025 MCHC (RBC) [Mass/Vol] 32.6 g/dL 29.9-35.2 [facility] MCV Auto (RBC) [Entitic vol] Ordered By: Karlie Pierce on 02-16-2025 MCV (RBC) [Entitic vol] 78.9 fL Low 80.0-94.0 F [facility] Monocytes Auto (Bld) [#/Vol] Ordered By: Karlie Pierce on 02-16-2025 Monocytes (Bld) [#/Vol] 0.7 10 3/uL 0.3-0.8 [facility] Monocytes/100 WBC Auto (Bld) Ordered By: Karlie Pierce on 02-16-2025 Monocytes/100 WBC (Bld) 14.6 % High 1.7-12.0 [facility] Neutrophils Auto (Bld) [#/Vo l]Ordered By: Karlie Pierce on 02-16-2025 Neutrophils (Bld) [#/Vol] 3.0 10 3/uL 1.4-6.5 [facility] Neutrophils/100 WBC Auto (Bl d)Ordered By: Kalrie Pierce on 02-16-2025 Neutrophils/100 WBC (Bld) 59.2 % 43.0-75.0 [facility] No Panel InformationOrdered By: Karlie Pierec on 02-16-2025 Eosinophils # (Auto) 0.2 10 3/uL 0.0-0.7 [facility] Immature Granulocyte # (Auto) 0.01 10 3/uL 0.00-0.03 [facility] Platelet mean volume Auto (B ld) [Entitic vol]Ordered By: Karlie Peirce on 02-16-2025 Platelet mean volume (Bld) [Entitic vol] 8.7 fL Low 9.5-13.5 [facility] Platelets Auto (Bld) [#/Vol] Ordered By: Karlie Pierce on 02-16-2025 Platelets (Bld) [#/Vol] 239 10 3/uL 150-450 [facility] RBC Auto (Bld) [#/Vol]Ordere d By: Karlie Pierce on 02-16-2025 RBC (Bld) [#/Vol] 6.11 10 6/uL High 4.70-6.10 [facility] Serum or plasma anion gap de terminationOrdered By: Karlie Pierce on 02-16-2025 Anion gap [Moles/Vol] 9.9 mmol/L [facility] Ambulatory Visit Summaryon 0 02-02-2025 Ambulatory Visit Summary Ambulatory Visi t Summary ODILIA RICO :2005 Visit Date:02/02/2025 Ambulatory Visit Instructions Your [...] With: Arabella Pavon Where: [facility] [address] [place] [address]- Medications What How Much When Instructions Unchanged [...] signed up for this yet, please contact [employer] at [phone] to get signed up today. Language Information Language assistance services are available as needed. 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 1. Erectile dysfunction (N52.9: [...] E&M of New Patient Moderate 45-59 Min 73000 Urnls Dip Stick Auto w/o Microscopy POC 83894 Orders: sulfamethoxazole-tr imethoprim, 1 tab(s), Oral, q12hr [...] Protein Urine Dipstick: Trace (02/02/25 14:10:00) Specific [facility] Urine Dipstick: 1.020 (02/02/25 14:10:00) Urine Appearance Urine Dipstick: Clear (02/02/25 14:10:00) Urine Color Urine Dipstick: Yellow (02/02/25 14:10:00) Urobilinogen Urine Dipstick: Normal 0.2-1 EU/dl (02/02/25 14:10:00) pH Urine Dipstick: 8.5 (02/02/25 14:10:00) Normal [facility] Comment on above: Result Comment: Elec tronically Signed By: Amy MILLER, Arabella Frias\.br\Date and Time Signed: 02/02/25 16:08 EDT CULTURE THROATon 06-13-2021 CULTURE THROAT Culture Observations: NORMAL RESPIRATORY ZACHARY. Normal [facility] Comment on above: Performed By: #### T HRTCX #### [facility] [address] [place] [address] Dr. Paloma Roldan [facility] SARS-CoV-2 (COVID-19) RNA SOHAN+probe Ql (Unsp spec) Not detected Normal NOT DETECTED [facility] Comment on above: Result Comment: This test is not yet approved or cleared by the [place] FDA. When there are no FDA-approved or cleared tests available, and other criteria are met, FDA can make tests available under an emergency access mechanism called an Emergency Use Authorization (EUA). The EUA for this test is supported by the [employer] of Health and Human Service's (HHS's) declaration [...] SARS-CoV-2. Performed By: #### C VDTB #### [facility] [address] [place] [id number] Paloma Roldan Cov[facility] ([facility])on 05-16 SARS-CoV-2 (COVID-19) RNA SOHAN+probe Ql (Unsp spec) Not detected Normal NOT DETECTED [facility] Comment on above: Result Comment: This test is not yet approved or cleared by the [place] FDA. When there are no FDA-approved or cleared tests available, and other criteria are met, FDA can make tests available under an emergency access mechanism called an Emergency Use Authorization (EUA). The EUA for this test is supported by the [employer] of Health and Human Service's (HHS's) declaration [...] SARS-CoV-2. Performed By: #### C VDTB #### [facility] [address] [place] [id number] Paloma Roldan Vital Signs Date Time Vital Sign Value Performing Clinician Faci lity 03-11-2025 07:49-0400 Body height 187.96 cm Karlie Pierce MD Work Phone: [facility] 03-11-2025 07:49-0400 Body mass index (BMI) [Percentile] Per age and sex 51.4 % Karlie Pierce MD Work Phone: [facility] 03-11-2025 07:49-0400 Body mass index (BMI) [Ratio] 22.9 kg/m2 Karlie Pierce MD Work Phone: [facility] 03-11-2025 07:49-0400 Body weight 81.19 kg Karlie Pierce MD Work Phone: [facility] 03-11-2025 07:49-0400 Diastolic blood pressure 68 mm[Hg] Karlie Pierce MD Work Phone: [facility] 03-11-2025 07:49-0400 Heart rate 94 /min Karlie Pierce MD Work Phone: [facility] 03-11-2025 07:49-0400 Respiratory rate 14 /min Karlie Pierce MD Work Phone: [facility] 03-11-2025 07:49-0400 SaO2% (BldA) [Mass fraction] 97 % Karlie Pierce MD Work Phone: [facility] 03-11-2025 07:49-0400 Systolic blood pressure 108 mm[Hg] Karlie Pierce MD Work Phone: [facility] 02-16-2025 11:08-0400 Body height 187.96 cm Karlie Pierce MD Work Phone: [facility] 02-16-2025 11:08-0400 Body mass index (BMI) [Percentile] Per age and sex 47.9 % Karlie Pierce MD Work Phone: [facility] 02-16-2025 11:08-0400 Body mass index (BMI) [Ratio] 22.6 kg/m2 Karlie Pierce MD Work Phone: [facility] 02-16-2025 11:08-0400 Body weight 79.83 kg Karlie Pierce MD Work Phone: [facility] 02-16-2025 11:08-0400 Diastolic blood pressure 78 mm[Hg] Karlie Pierce MD Work Phone: [facility] 02-16-2025 11:08-0400 Heart rate 79 /min Karlie Pierce MD Work Phone: [facility] 02-16-2025 11:08-0400 Systolic blood pressure 119 mm[Hg] Karlie Pierce MD Work Phone: [facility] 01-24-2025 14:37-0400 Body height 187.96 cm Karlie Pierce MD Work Phone: [facility] 01-24-2025 14:37-0400 Body mass index (BMI) [Percentile] Per age and sex 49.6 % Karlie Pierce MD Work Phone: [facility] 01-24-2025 14:37-0400 Body mass index (BMI) [Ratio] 22.7 kg/m2 Karlie Pierce MD Work Phone: [facility] 01-24-2025 14:37-0400 Body weight 80.28 kg Karlie Pierce MD Work Phone: [facility] 01-24-2025 14:37-0400 Diastolic blood pressure 70 mm[Hg] Karlie Pierce MD Work Phone: [facility] 01-24-2025 14:37-0400 Heart rate 78 /min Karlie Pierce MD Work Phone: [facility] 01-24-2025 14:37-0400 Systolic blood pressure 109 mm[Hg] Karlie Pierce MD Work Phone: [facility] 01-10-2025 09:46-0400 Body height 187.96 cm Karlie Pierce MD Work Phone: [facility] 01-10-2025 09:46-0400 Body mass index (BMI) [Percentile] Per age and sex 49.9 % Karlie Pierce MD Work Phone: [facility] 01-10-2025 09:46-0400 Body mass index (BMI) [Ratio] 22.7 kg/m2 Karlie Pierce MD Work Phone: [facility] 01-10-2025 09:46-0400 Body weight 80.28 kg Karlie Pierce MD Work Phone: [facility] 01-10-2025 09:46-0400 Diastolic blood pressure 70 mm[Hg] Karlie Pierce MD Work Phone: [facility] 01-10-2025 09:46-0400 Heart rate 55 /min Karlie Pierce MD Work Phone: [facility] 01-10-2025 09:46-0400 Respiratory rate 16 /min Karlie Pierce MD Work Phone: [facility] 01-10-2025 09:46-0400 SaO2% (BldA) [Mass fraction] 98 % Karlie Pierce MD Work Phone: [facility] 01-10-2025 09:46-0400 Systolic blood pressure 110 mm[Hg] Karlie Pierce MD Work Phone: [facility] 10-26-2024 09:00-0400 Body weight 82.56 kg Christopher Flor DO Work Phone: [facility] 10-26-2024 09:00-0400 Diastolic blood pressure 72 mm[Hg] Christopher Flor DO Work Phone: [facility] 10-26-2024 09:00-0400 Heart rate 59 /min Christopher Flor DO Work Phone: [facility] 10-26-2024 09:00-0400 SaO2% (BldA) [Mass fraction] 96 % Christopher Flor DO Work Phone: [facility] 10-26-2024 09:00-0400 Systolic blood pressure 110 mm[Hg] Christopher Flor DO Work Phone: [facility] 09-02-2024 10:13-0500 Body height 187.96 cm [facility] 09-02-2024 10:13-0500 Body mass index (BMI) [Percentile] Per age and sex 47.2 % [facility] 09-02-2024 10:13-0500 Body mass index (BMI) [Ratio] 22.3 kg/m2 [facility] 09-02-2024 10:13-0500 Body weight 78.92 kg [facility] 09-02-2024 10:13-0500 Diastolic blood pressure 75 mm[Hg] [facility] 09-02-2024 10:13-0500 Heart rate 71 /min [facility] 09-02-2024 10:13-0500 Systolic blood pressure 110 mm[Hg] [facility] 06-01-2024 09:14-0500 Body height 187.96 cm [facility] 06-01-2024 09:14-0500 Body mass index (BMI) [Percentile] Per age and sex 61.8 % [facility] 06-01-2024 09:14-0500 Body mass index (BMI) [Ratio] 23.3 kg/m2 [facility] 06-01-2024 09:14-0500 Body weight 82.55 kg [facility] 06-01-2024 09:14-0500 Diastolic blood pressure 71 mm[Hg] [facility] 06-01-2024 09:14-0500 Heart rate 70 /min [facility] 06-01-2024 09:14-0500 Systolic blood pressure 119 mm[Hg] [facility] 03-18-2024 09:07-0400 Body height 187.96 cm [facility] 03-18-2024 09:07-0400 Body mass index (BMI) [Percentile] Per age and sex 58.6 % [facility] 03-18-2024 09:07-0400 Body mass index (BMI) [Ratio] 22.9 kg/m2 [facility] 03-18-2024 09:07-0400 Body weight 81.19 kg [facility] 03-18-2024 09:07-0400 Diastolic blood pressure 76 mm[Hg] [facility] 03-18-2024 09:07-0400 Heart rate 73 /min [facility] 03-18-2024 09:07-0400 Systolic blood pressure 117 mm[Hg] [facility] 08-28-2023 09:45-0500 Body height 187.96 cm [facility] 08-28-2023 09:45-0500 Body mass index (BMI) [Percentile] Per age and sex 55.5 % [facility] 08-28-2023 09:45-0500 Body mass index (BMI) [Ratio] 22.3 kg/m2 [facility] 08-28-2023 09:45-0500 Body weight 78.92 kg [facility] 08-28-2023 09:45-0500 Diastolic blood pressure 72 mm[Hg] [facility] 08-28-2023 09:45-0500 Heart rate 65 /min [facility] 08-28-2023 09:45-0500 Systolic blood pressure 109 mm[Hg] [facility] 08-21-2023 09:30-0500 Body height 187.96 cm Daily Nagel Other [employer] [facility] Other 08-21-2023 09:30-0500 Body mass index (BMI) [Ratio] 22.85 kg/m2 Daily Nagel Other [facility] Other 08-21-2023 09:30-0500 Body weight 80.74 kg Daily Nagel Other [facility] Other 08-21-2023 09:30-0500 Diastolic blood pressure 72 mm[Hg] Daily Nagel Other [facility] Other 08-21-2023 09:30-0500 SaO2% (BldA) [Mass fraction] 96 % Daily Nagel Other [facility] Other 08-21-2023 09:30-0500 Systolic blood pressure 112 mm[Hg] Daily Nagel Other [facility] Other 07-21-2023 08:30-0500 Body height 187.96 cm Karlie Pierce Other [facility] 07-21-2023 08:30-0500 Body mass index (BMI) [Ratio] 22.98 kg/m2 Karlie Pierce Other [facility] Other 07-21-2023 08:30-0500 Body weight 81.19 kg Karlie Pierce Other [facility] 07-21-2023 08:30-0500 Diastolic blood pressure 74 mm[Hg] Karlie Pierce Other [facility] 07-21-2023 08:30-0500 Systolic blood pressure 116 mm[Hg] Karlie Pierce Other [facility] 11-13-2022 09:30-0400 Body height 186.69 cm Karlie Pierce Other [facility] Other 11-13-2022 09:30-0400 Body mass index (BMI) [Ratio] 22.77 kg/m2 Karlie Pierce Other [facility] Other 11-13-2022 09:30-0400 Body weight 79.38 kg Karlie Pierce Other [facility] Other 11-13-2022 09:30-0400 Diastolic blood pressure 72 mm[Hg] Karlie Pierce Other [facility] Other 11-13-2022 09:30-0400 SaO2% (BldA) [Mass fraction] 98 % Karlie Pierce Other [employer] [facility] Other 11-13-2022 09:30-0400 Systolic blood pressure 108 mm[Hg] Karlie Pierce Other [facility] Other 09-04-2022 10:00-0500 Body height 186.69 cm Karlie Pierce Other [facility] Other 09-04-2022 10:00-0500 Body mass index (BMI) [Ratio] 22.25 kg/m2 Karlie Pierce Other [facility] Other 09-04-2022 10:00-0500 Body weight 77.57 kg Karlie Pierce Other [facility] Other 09-04-2022 10:00-0500 Diastolic blood pressure 60 mm[Hg] Karlie Pierce Other [facility] Other 09-04-2022 10:00-0500 Systolic blood pressure 102 mm[Hg] Karlie Pierce Other [facility] Other Encounters Encounter Date Encounter Type Care Provider Facility Start: 05-11-2025 ambulatory Arabella Ojedaea Facility :[facility] Start: 03-30-2025 End: 03-30-2025 ambulatory Arabella Altagracia Galea Facility:[facility] Start: 03-30-2025 End: 03-30-2025 Patient encounter procedure Arabella Reyes [facility] Start: 03-25-2025 ambulatory Karlie Pierce Facility :[facility] Start: 03-11-2025 End: 03-11-2025 ambulatory Karlie Pierce MD Work Phone: [facility] Work Phone: Start: 03-11-2025 End: 03-11-2025 Patient encounter procedure Karlie Pierce MD -[facility] Work Phone: Start: 03-07-2025 Registered Recurring Karlie Pierce MD -[facility] Start: 02-25-2025 End: 02-25-2025 ambulatory Karlie Pierce MD Work Phone: [facility] Work Phone: Start: 02-25-2025 End: 02-25-2025 Patient encounter procedure Navarro Dixon DO -[facility] Work Phone: Start: 02-23-2025 Registered Recurring Karlie Pierce MD -[facility] Start: 02-16-2025 End: 02-16-2025 ambulatory Karlie Pierce MD Work Phone: [facility] Work Phone: Start: 02-16-2025 End: 02-16-2025 Patient encounter procedure Karlie Pierce MD -[facility] Work Phone: Start: 02-02-2025 End: 02-02-2025 ambulatory Arabella J Galea Facility:[facility] Start: 02-02-2025 End: 02-02-2025 Patient encounter procedure Arabella J [facility] Start: 01-27-2025 ambulatory Arabella Galea Facility:[facility] Start: 01-24-2025 End: 01-24-2025 ambulatory Karlie Pierce MD Work Phone: [facility] Work Phone: Start: 01-24-2025 End: 01-24-2025 Patient encounter procedure Karlie Pierce MD -[facility] Work Phone: Start: 01-10-2025 End: 01-10-2025 ambulatory Karlie Pierce MD Work Phone: [facility] Work Phone: Start: 01-10-2025 End: 01-10-2025 Patient encounter procedure Elif Funes BEHAVIORAL TECHNICIAN-MEAT PROCESSOR-C [facility] Work Phone: Start: 10-26-2024 End: 10-26-2024 Bamboo flowsheet Mamie Ray DO Work Phone: [facility] Start: 10-26-2024 End: 10-26-2024 Bamboo flowsheet Mamie Flor DO Work Phone: [facility] Start: 10-26-2024 End: 10-26-2024 Office outpatient new 45 minutes Mamie Ray DO Work Phone: [facility] Comment on above: Chronic tension-type headache, not intractable (Primary Dx) Start: 10-26-2024 End: 10-26-2024 ambulatory MAMIE RAY Not Available Start: 09-02-2024 End: 09-02-2024 ambulatory [facility] Work Phone: Start: 09-02-2024 End: 09-02-2024 Patient encounter procedure [facility] Work Phone: Start: 06-01-2024 End: 06-01-2024 ambulatory [facility] Work Phone: Start: 06-01-2024 End: 06-01-2024 Patient encounter procedure [facility] Work Phone: Start: 03-18-2024 End: 03-18-2024 ambulatory [facility] Work Phone: Start: 03-18-2024 End: 03-18-2024 Patient encounter procedure [facility] Work Phone: Start: 08-28-2023 End: 08-28-2023 ambulatory [facility] Work Phone: Start: 08-28-2023 End: 08-28-2023 Patient encounter procedure [facility] Work Phone: Start: 08-21-2023 End: 08-21-2023 ambulatory Daily Nagel Other [facility] Other Start: 08-21-2023 Office outpatient visit 15 minutes Daily Nagel [facility] Start: 07-21-2023 End: 07-21-2023 ambulatory Karlie Pierce Other [facility] Other Start: 07-21-2023 Office outpatient visit 15 minutes Karlie Pierce [facility] Start: 07-21-2023 End: 07-21-2023 Patient encounter procedure [facility] Work Phone: Start: 06-09-2023 End: 06-09-2023 ambulatory Karlie Pierce Other [facility] Other Start: 06-09-2023 Telephone encounter Karlie Pierce [facility] Start: 11-13-2022 End: 11-13-2022 ambulatory Karlie Pierce Other [facility] Other Start: 11-13-2022 Office outpatient visit 15 minutes Karlie Pierce [facility] Start: 09-04-2022 End: 09-04-2022 ambulatory Karlie Pierce Other [facility] Other Start: 09-04-2022 Office outpatient visit 15 minutes Karlie Pierce [facility] Start: 05-07-2022 End: 05-30-[address] KARLIE PIERCE Facility:[facility] Start: 05-02-2022 Child health medical examination Karlie Pierce Other [facility] Other Start: 05-02-2022 Well child visit Karlie Pierce Other [facility] Other Start: 06-13-2021 End: 06-13-2021 ambulatory MOI TREJO Facility:[facility] Start: 06-12-2021 End: 06-12-[address] KARLIE PIERCE Facility:[facility] Procedures Date Procedure Procedure Detail Performing Clinician Depression screening Karlie Pierce Other None (qualifier value) Edie Reyes Plan of Treatment Date Care Activity Detail Author Start: 03-14-2025 Influenza vaccination Influenz a Vaccine (Season Ended) [facility] Start: 01-10-2025 End: 01-10-2025 Patient encounter procedure 01/10/2025 9:40 AM EDT [facility] [address] [place] [address] Elif Funes, CAMPUS WELLNESS COORDINATOR [address] [place] [id number] [facility] Start: 10-26-2024 End: 10-26-2024 Patient encounter procedure 10/26/2024 9:00 AM EDT [facility] [address] [place] [address] Mamie Ray, DO [address] [place] [address] Arrived [facility] Comment on above: Arrived EKG 12 channel panel [facility] Patient Education Low back pain in adults [facility] Work Phone: XR Cervical spine 5 Views [facility] XR Lumbar spine 2 or 3 Views [facility] XR Thoracic spine [address] [facility] Immunizations Immunization Date Immunization Notes Care Provider [facility] 05-01-2023 meningococcal ACWY vaccine, unspecified formulation Arabella Galea [facility] 05-05-2021 COVID-19 Vaccine Pfi zer - Documentation Purposes Only Karlie Pierce Other [facility] 04-11-2021 SARS-CoV-2 (COVID-19 ) mRNA BNT-162b2 vax Arabella Galea [facility] 09-01-2018 HPV, unspecified formulation Arabella Galea [facility] 01-01-2018 HPV, unspecified formulation Arabella Galea [facility] 01-01-2018 meningococcal ACWY vaccine, unspecified formulation Arabella Galea [facility] 01-01-2018 tetanus toxoid, redu juanita diphtheria toxoid, and acellular pertussis vaccine, adsorbed Arabella Galea [facility] 11-27-2010 Diphtheria, tetanus toxoids and acellular pertussis vaccine, and poliovirus vaccine, inactivated Arabella Galea [facility] 11-27-2010 measles, mumps, rubella, and varicella virus vaccine Arabella Galea [facility] 08-02-2008 hepatitis A vaccine, unspecified formulation Arabella Galea [facility] 02-10-2007 DTaP, unspecified formulation Arabella Galea [facility] 02-10-2007 hepatitis A vaccine, unspecified formulation Arabella Galea [facility] 02-10-2007 Hib, unspecified formulation Arabella Galea [facility] 09-19-2006 measles, mumps, rubella, and varicella virus vaccine Arabella Galea [facility] 07-18-2006 DTaP, unspecified formulation Arabella Galea [facility] 07-18-2006 influenza virus vaccine, unspecified formulation Mamie Ray DO Work Phone: [facility] 06-17-2006 DTaP-hepatitis B and poliovirus vaccine Arabella Galea [facility] 06-17-2006 Hib, unspecified formulation Arabella Galea [facility] 06-17-2006 influenza virus vaccine, unspecified formulation Arabella Galea [facility] 01-15-2006 diphtheria, tetanus toxoids and acellular pertussis vaccine Arabella Galea [facility] 01-15-2006 haemophilus influenz ae type b vaccine, PRP-T conjugate Raabella Galea [facility] 01-15-2006 poliovirus vaccine, unspecified formulation Arabella Galea [facility] 2005 diphtheria, tetanus toxoids and acellular pertussis vaccine Arabella Galea [facility] 2005 poliovirus vaccine, unspecified formulation Arabella Galea [facility] 2005 hepatitis B vaccine, pediatric or pediatric/adolescent dosage Arabella Galea [facility] Payers Date Payer Category Payer Self-pay 2019 Medicaid (Managed Care) [facility]ICA[facility] [id number] 2005 Unknown [id number] 2005 Unknown [id number] 727 2005 Unknown [id number] 727 2005 Unknown [id number] 727 1973 Unknown [id number] 593 1973 Unknown [id number] 593 1973 Unknown [id number] [id number] 593 1973 Unknown [id number] 593 1959 Unknown [id number] 1959 Unknown [id number] Medicaid [id number] Unknown Other1 (STD) [id number] Unknown [id number] 531 Social History Date Type Detail Facility Unknown if ever smoked [facility] Other Sex Assigned At [facility] Start: 2005 Sex Assigned At Male [facility] Start: 03-18-2024 End: 02-02-2025 Tobacco smoking status NHIS Never smoked tobacco (finding) [facility] Start: 04-03-2011 End: 06-01-2024 Sex Male (finding) [facility] Tobacco smoking stat [facility] Tobacco smoking consumption unknown [facility] Start: 2005 Sex assigned at Not on file [facility] Tobacco smoking status Never [facility] Sexual Orientation [facility] Clinical Notes 09-04-2022 to 03-30-2025 Note Date & Type Note Facility 03-30-2025 Hospital Discharg e instructions Patient Education 03/30/2025 15:25:55 Erectile Dysfunction Erectile Dysfunction Erectile dysfunction (ED) [...] Follow these instructions at home: Medicines Take eylf-xek-bmujkvl and prescription medicines only as told by [...] provider. Document Revised: 09/26/2021 Document Reviewed: 09/26/2021 [employer] Patient Education 2023 [employer]. Follow Up Care 02/02/2025 14:47:09 With:Amy MILLER, Arabella Frias, URL Address: When:6 weeks Comments:scrotal US [facility] 03-30-2025 Note Patient Education Urology Erectile Dysfunction Erectile [...] these instructions at home: Medicines ??? Take hqgs-fte-dhtujyp and prescription medicines only as told by [...] Do not u (more content not included)... [facility] 02-02-2025 Hospital Discharg e instructions Patient Education [...] Follow these instructions at home: Medicines Take lexb-gtl-iaottwn and prescription medicines only as told by [...] provider. Document Revised: 09/26/2021 Document Reviewed: 09/26/2021 [employer] Patient Education 2023 [employer]. Follow Up Care 01/27/2025 10:12:15 With:Amy MILLER, Arabella Frias, URL Address: When:Within 8 Week(s) [facility] 02-02-2025 Note Patient Education Urology Erectile [...] these instructions at home: Medicines ??? Take plvq-pqs-fexmzaj and prescription medicines only as told by [...] Do not u (more content not included)... [facility] 01-10-2025 Evaluation note Diagnosis Onset Date Resolution Encounter prior to initiation of medication acute January 10, 2025 9:41am Chronic tension-type headache, not intractable chronic January 10, 2025 9:41am [facility] Work Phone: 1(497) 210-522506-30-2025 Evaluation note* Diagnosis Onset Date Resolution Status [...] not intractable chronic February 16, 2025 11:04am [facility] Work Phone: 1(397) 624-880006-30-2025 Evaluation note* Diagnosis Onset Date Resolution Status [...] 16, 025 11:04am Trapezius muscle spasm acute 2024 11:04am Chronic tension-type headach e, not intractable chronic February 16, 2025 11:04am [facility] Work Phone: 1(405) 777-388806-30-2025 Evaluation note* Diagnosis Onset Date Resolution Status [...] 16 025 11:04am Trapezius muscle spasm acute 2024 11:04am Chronic tension-type headach e, not intractable chronic February 16, 2025 11:04am Cervical pain (neck) acute 2024 8:46am Lumbar back pain acute February 122024 8:46am Thoracic back pain acute March 11, 2025 8:46am [facility] Work Phone: 1(422) 493-531104-15-2025 History of Present illness Narrative* Mamie Ray, - 10/26/2024 9:00 AM EDT Images from the original note were not included. Chief Complaint: tension type headache Subjective Odilia Rico, 19 y.o., male Patient presents today for [...] , wrist extensors , wrist flexor , sleeve wheel maker strength 5/5. LUE Strength deltoid , biceps , triceps , wrist extensors , wrist flexor , sleeve wheel maker strength 5/5. RLE Strength illopsoas, quadriceps, tibialis [...] reflex 2+ . Miner's sign negative. Coordination: Ifievy-oc-fvdw testing and rapid alternating movements are normal [...] plan, and return instructions documented in this encounterThe [facility] [id number] Evaluation note* Diagnosis Onset Date Resolution Status Admit Date ADHD acute March 18, 2024 9:04am Anxiety, generalized acute Sept emb2023 9:04am Constipation acute May 9:12am Trapezius muscle spasm acute No vember 2023 9:12am [facility] Work Phone: 1(423) 642-513402-08-2024 Evaluation note* Encounter Date Diagnosis Assessment Notes [...] symptoms. Pt and his grandmother verbalize understanding. 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 Agrees to try trazodone. Jul, ADHD (ICD-10 - F90.9) Pt considering d/c strattera after basketball season if problem w insomnia continues. Otherwise it is helping w his concentration well. [facility] Other 05-03-2023 Evaluation note* Encounter Date Diagnosis [...] Will start w lowest dose of Intuniv. [facility] Other 02-22-2023 Evaluation note* Encounter Date Diagnosis [...] should not increase is anxiety or insomnia. [facility] Other Evaluation + Plan note Future Appointments Appointment Date:03/30/2025 09:00:00 AM Scheduled Provider:Arabella Pavon Location:[facility] Appointment Type:URO Office Visit [facility] Evaluation + Plan note Future Appointments Appointment Date:05/11/2025 08:20:00 AM Scheduled Provider:Arabella Pavon Location:[facility] Appointment Type:URO Office Visit [facility] evaluation noteNo [facility] Other evaluation noteNo assessment information available [facility] Work Phone: Evaluwnfuk note* Diagnosis Onset Date Resolution Status Admit Date Tension type headache acute Aug 9:57am [facility] Work Phone: Evaluation note* Diagnosis Chronic tension-type headache, not intractable- Primary Chronic tension type headache [facility] Diagnosis Onset Date Resolution Status Admit Date Encounter prior to initiatio n of medication acute January 10, 2025 9:41am Chronic tension-type headach e, not intractable chronic January 10, 2025 9:41am [facility] Work Phone: History general Narrative - Reported* Type Description Date Medical History ADHD Medical History Olecranon bursitis, left elbow Medical History Anxiety, generalized [facility] Other Hisvkvu general Narrative - Reported* Type Description Date Medical History ADHD Medical History Olecranon bursitis, left elbow Medical History Anxiety, generalized Surgical History Problem Title : past surgical history reviewed, Problem Description : past surgical history reviewed, Problem Comment : reviewed - no changes required, Problem Status : Active, [employer] [facility] [employer] Other History general Narrative - Reported* Type Description Date Medical History ADHD Medical History Olecranon bursitis, left elbow Medical History Anxiety, generalized Surgical History No Surgical history information [employer] [facility] [employer] Other Hospital course Narrative No data available for this section [facility] Progress note No data available for this section [facility] Reason for referral (narrative)No reason for referral information available[facility] Work Phone: Rekmrl for visit Narrative* Consultation (Routine) - Closed Specialty Diagnoses / Procedures Referred By Rachana t Referred To Contact Neurology Diagnoses Headache, unspecified Tension-type headache, unspecified, not intractable Procedures [facility] OFFICE/OUTPATIENT [facility] 30 MINUTES Karlie Pierce MD Phone: tel: fax: Mamie Ray, DO [address] [address] Phone: tel: fax: Referral ID Status Reason Start Date Expiration Date V isits Requested Visits Authorized [id number] Closed Consult and Treat 09/07/2024 03/06/2025 1 1 [facility] Healthcare Summary Purpose Family History No Family History Records FoundNo Family History Records Found No data available for this section No Family History Records Found No data available for this section No Family History Records Found Advance Directives [...] content) DATE CREATED AUTHOR 06/05/2022 [facility] DATE CREATED AUTHOR AUTHOR'S ORGANIZ ATION 10/27/2024 [facility] EPIC DATE CREATED AUTHOR AUTHOR'S ORGANIZ ATION 03/26/2025 [facility] DATE CREATED AUTHOR AUTHOR'S ORGANIZ ATION 04/01/2025 [facility] REASON FOR VISIT (unrecogniz ed section and [...] September 02, 2024 End: September 02, 2024 Equipment Cleaner And Tester Relationship Specialty Start Date End Date Karlie Pierce MD [address] [place] [address] PCP - General Family Medicine 09/08/24 Equipment Cleaner And Tester Relationship Specialty Start Date End Date Karlie Pierce MD [address] [place] [address] PCP - General Family Medicine 09/08/24 Team Status: Inactive Member Role Status Dates Elif Funes APRN-MEAT PROCESSOR-C Attending Provider Active Start: January 10, 2025 [...] 2025 Team Status: Inactive Member Role Status Martinez Pierce MD Primary Care Provider Active Start: February 25, 2025 End: February 25, 2025 Navarro Dixon DO Attending Provider Active Sta rt: February 25, 2025 End: February 25, 2025 Team Status: Active Member Role Status Martinez Pierce MD Primary Care Provider Active Start: March 07, 2025 Karlie Pierce MD Attending Provider Active St art: March 07, 2025 Team Status: Inactive Member Role Status Martinez Pierce MD Primary Care Provider Active Start: [...] BE BASED ON THE PRIMARY CLINICAL RECORDS. [facility] [employer] provides no warranty or guarantee of the accuracy or completeness of information in this document.
== END 2025-04-05 10:07 | disposition home or self-care (01) ==
LOC: US 10:06
PROVIDERS: PCP Family Medicine; Visit Provider Nurse Practitioner
DX: N52.9 Male erectile dysfunction, unspecified (principal); I86.1 Scrotal varices
CPT/HCPCS: 76870

== ENCOUNTER 2025-06-02 11:32 | Outpatient (OUT) | payer OTHER, SELFPAY ==
--- OUTSIDE RECORDS SUMMARY | 2025-05-31 09:16 | XMS_ITS | Continuity of Care Document ---
Author Organization [facility] Address [address] [place] [address] Phone Care Team Providers Care Bark Grinder Name Role Phone Karlie Bianchi MD Primary Care Provider Karlie Bianchi MD Attending Provider [phone] Elif Funes APRN-JANES-C Attending Provider + Harry Goldstein APRN Attending Provider Care Teams Patient Care Team Team Status: Active Member Role/Relationship Status Dates Karlie Bianchi MD Primary Care Provider Active Visit Care Team Team Status: Inactive Member Role/Relationship Status Dates Karlie Bianchi MD Primary Care Provider Active Start: March 11, 2025 End: March 11, 2025Angy Streeter ProviderActiveStart: March 11, 2025 End: March 11, 2025 Visit Care Team Team Status: Active Member Role/Relationship Status Dates Karlie Bianchi MD Primary Care Provider Active Start: March 25, 2025 Angy Streeter ProviderActiveStart: March 25, 2025 Visit Care Team Team Status: Inactive Member Role/Relationship Status Dates Karlie Bianchi MD Primary Care Provider Active Start: April 11, 2025 End: April 11, 2025MAREK Perez-CAttending ProviderActive Start: April 11, 2025 End: April 11, 2025 Visit Care Team Team Status: Inactive Member Role/Relationship Status Dates Karlie Bianchi MD Primary Care Provider Active Start: April 14, 2025 End: April 14, 2025Angy Streeter ProviderActiveStart: April 14, 2025 End: April 14, 2025 Visit Care Team Team Status: Inactive Member Role/Relationship Status Dates Karlie Bianchi MD Primary Care Provider Active Start: April 19, 2025 End: April 19, 2025Angy Streeter ProviderActiveStart: April 19, 2025 End: April 19, 2025 Visit Care Team Team Status: Inactive Member Role/Relationship Status Dates Karlie Bianchi MD Primary Care Provider Active Start: May 24, 2025 End: May 24, 2025Angy Streeter ProviderActiveStart: May 24, 2025 End: May 24, 2025 Patient Care Team Team Status: Inactive Member Role/Relationship Status Dates Karlie Bianchi MD Primary Care Provider Active Start: May 31, 2025 End: May 31, 2025Loy Payne ProviderActiveStart: May 31, 2025 End: May 31, 2025 Chief Complaint and Reason for Visit Chief Complaint Admit Date depressed March 11, 2025 8: 46am 3 month follow up April 11, 2025 11:35am C only; back spasms April 14, 2025 10 :45am Bowel Issues April 19, 2025 8: 41am Discuss Meds May 24, 2025 9:59am Refer Dr Karlie Bianchi: constipation [facility] 2024 1:25pm Reason for Visit Admit Date Cervical pain (neck) March 11, 2025 8 :46am Lumbar back pain March 11, 2025 8: 46am Thoracic back pain March 11, 2025 8: 46am Anxiety, generalized April 11 11:35am Chronic tension-type headache, not intra ctable April 11, 2025 11:35am Constipation April 19, 2025 8: 41am ADHD May 24, 2025 9:59am Cervical pain (neck) May 24, 2025 9:59am Constipation May 24, 2025 9:59am Lumbar back pain May 24, 2025 9:59am Thoracic back pain May 24, 2025 9:59am Abdominal pain May 31, 2025 1:25pm Change in bowel habits November 18th, 20 25 1:25pm Constipation May 31, 2025 1:25pm Reason for Referral Type Reason(s) Provider Provider Contact Information P ann-marie Address Start Date Referral to intelligence support officer Constipat ion K59.09 - Other ulykwlqrsuorR53.09 - Other constipationFPG GastroenterologyWork Phone: [phone] [address] [address]Yglqhlzz [address]24 Allergies, Adverse Reactions, Alerts Allergen Type Severity Reaction Last Updated Verified Status No Known Allergies Allergy Unknown May 31, 2025 1:30pmYesActive Social History Smoking Status Status Start Date End Date Date of Observa tion Never smoked tobacco (finding) May 31, 2025 2:13pm Observation Status Observation Response Date of Response Legal Sex Male (finding) Sex Assigned At BirthMaleFebary 2005 Family History Relationship Condition Age at Onset Recorded Date/T airam maternal grandmother Malignant neoplasm Unknown family memberMalignant neoplasm of colonUnknown Problems Active Problems Problem Diagnosis/Recorded Date Onset Date Stat us Change in bowel habits May 31, 2025 2:06pm Unkn own Active Trapezius muscle spasm June 01, 2024 9:40am Unkn own Active Anxiety, generalized January 23, 2024 11:31am Unknown Active Fatigue February 16, 2025 10:27am Unknown Act anson Muscle pain February 16, 2025 10:27am Unknown Act anson Tension type headache September 02, 2024 10:46am Unkn own Active Abnormal complete blood count March 25, 2025 7:2 9am Unknown Active Encounter prior to initiatio n of medication January 10, 2025 9:25am Unknown Active Lumbar back pain March 11, 2025 8:10am Unknown Active Chronic tension-type headach e, not intractable January 10, 2025 7:10am Unknown Active ADHD January 23, 2024 11:31am Unknown Acti ve Cervical pain (neck) March 11, 2025 8:10am Unknown Active Thoracic back pain March 11, 2025 8:10am Unknown Active Abdominal pain May 31, 2025 2:07pm Unknown Active Constipation August 28, 2023 12:38pm Unknown Active Medications Medication Status Dose Units Route Directions Qty Days Refills S tart Date Stop Date End Date Reason(s) Instructions Adherence Atomoxetine 25 mg capsule Discontinued 0 .ROUTE.CPCNETM419Tpgc 2023 12:04pmJuly 2023 12:03pmTAKE 1 CAPSULE BY MOUTH EVERY DAYAtomoxetine 25 mg capsuleDiscontinued0.ROUTE.LTLUWTN367Qteu 2023 12:03pmSeptember 2023 8:12amTAKE 1 CAPSULE BY MOUTH EVERY DAY Amitriptyline 10 mg pohqgyUebyxrcxmnqd40UJMSCumps at giqaueb64454Votp 2024 9:05amAugust 2024 10:11amChronic tension-type headache, not intractable Chronic tension-type headache, not intractableEscitalopram Oxalate (Lexapro) 5 mg aunyppEilimfogarfu3DANAUlaxj849Mauysiysz 2024 7:23amOctober 2024 9:49amEscitalopram Oxalate (Lexapro) 5 mg xqkciyVbamnqvhnzyd8MDTYSvptn829Xpnlmpr 2024 9:49amNovember 2024 10:18amTopiramate 25 mg tihhnrTcmrumeymnva31 YRFRJwgtk12517Bijyddiol 2024 11:00pmNovember 2024 1:30pmChronic tension-type headache, not intractable Chronic tension-type headache, not intractableAtomoxetine 40 mg ooyiyzrIwznyz77 MGPOEvery rjxndit724DwmnkudiMay 24, 2025 12:00amUnknownLinaclotide (Linzess) 72 mcg izumdoyUgvjxs10VZPHAFcqbh qyhncdr873Ganwisve 11th, 2025 12:00amUnknown Atomoxetine 25 mg rlnwltrJezxggrcpjon1GFWMLVgtovIjqlyqid 2023 12:00amJune 2023 12:04pmFreeTextSi tablet once a day; Note: Source Status: Continue; Provider: Tash Ziegler ( )Trazodone 50 mg tablet Drpgtpdsmzwb49SIRICfnhd at bedtimeSept2023 11:00pmSept2023 8:11amFreeTextSi tablet at bedtime as needed Orally Once a day; Note: Source Status: Start; Provider:Tash Ziegler EKetoconazole 2 % shampooDiscontinued TOPICALSeptember 3rd, 2024 11:00pmNovember 2023 9:27amFreeTextSig: APPLY TO AFFECTED AREA THREE TIMES A WEEK; Note: Source Status: Start; Refills: 0; Qty: 120 Milliliter; Provider: Tash Ziegler ( )Escitalopram Oxalate (Lexapro) 5 mg aztpfzWuikakzqdcov2GHZLTudus800Fcfiuwqjg 2023 11:00pmNovember 2023 9:27amMeloxicam 15 mg tecldkBavzgraycsmg81FAJIEsqyf77 0February 2024 12:00amJune 2024 8:52amTizanidine 2 mg tablet Oxkbrkcjgfxa7ALRGZzgr 2024 11:00pmJune 2024 9:26amAmitriptyline 10 mg slsraaKzmczhjrxtao83SFJPOyccu at motrvpc60411Wnoj 29th, 2025 11:00pmJuly 2024 9:05amChronic tension-type headache, not intractable Chronic tension-type headache, not intractableTizanidine 4 mg tabletDiscontinued 4MGPOEvery 8 hours as neededJuly 2024 11:00pmAugust 2024 10:11am Escitalopram Oxalate (Lexapro) 5 mg itlyxxKatvmtdajboy9NDVQWcqlvGtgrzp 2024 11:00pmAugust 2024 10:24amEscitalopram Oxalate (Lexapro) 5 mg tablet Rvusgcohnlil1UGOVUlfsr705Fnanwa 2024 10:24amSeptember 2024 7:23am Immunizations Immunization Event Date Not Given Reason Dose Number Pattern Vault Clerk Lot Number Reason(s) Given Vaccine Information Statement (VIS) Detail Administration Location COVID-[address] [place] [address] ([facility]) May 05, 2021 Relevant Diagnostic Tests and/or Laboratory Data Laboratory Results Test Collection Date/Time Result Date/Time Result Interpretation Reference Range Result Comment Performing Site Monoscreen March 25, 2025 12:07pm March 25 12:07pm NEGATIVE NEGATIVEBasophils # (Auto)March 25, 2025 12:07pm0.0 10 3/uL0.0-0.1 Basophils (%) (Auto)March 25, 2025 12:07pm0.6 %0.2-2.0Eosinophils # (Auto) March 25, 2025 12:07pm0.1 10 3/uL0.0-0.7Eosinophils (%) (Auto)March 25, 2025 12:07pm2.5 %0.9-7.0HematocritSeptember 2024 12:07pm47.0 % 42.0-54.0HemoglobinSeptember 2024 12:07pm15.5 g/dL14.0-18.0Immature Granulocyte # (Auto)March 25, 2025 12:07pm0.01 10 3/uL0.00-0.03Immature Granulocyte % (Auto)March 25, 2025 12:07pm0.2 %0.0-0.5Lymphocytes # (Auto) March 25, 2025 12:07pm1.2 10 3/uL1.2-3.8Lymphocytes (%) (Auto)March 25, 2025 12:07pm23.9 %20.5-60.0Mean Corpuscular HemoglobinSeptember 2024 12:07pm25.7 pgBelow low gdcfqo95.9-34.0Mean Corpuscular Hemoglobin Concent March 25, 2025 12:07pm33.0 g/dL29.9-35.2Mean Corpuscular VolumeSeptember 2024 12:07pm77.9 fLBelow low zcezdl82.0-94.0Monocytes # (Auto)March 25, 2025 12:07pm0.4 10 3/uL0.3-0.8Monocytes (%) (Auto)March 25, 2025 12:07pm8.0 %1.7-12.0Mean Platelet VolumeSeptember 2024 12:07pm9.0 fLBelow low normal9.5-13.5Neutrophils # (Auto)March 25, 2025 12:07pm3.2 10 3/uL 1.4-6.5Neutrophils (%) (Auto)March 25, 2025 12:07pm64.8 %43.0-75.0Platelet CountSeptember 2024 12:33hs737 10 3/sD009-527Van Blood CountSeptember 2024 12:07pm6.03 10 6/uL4.70-6.10Red Cell Distribution WidthSeptember 2024 12:07pm13.2 %11.0-15.0Corrected White Blood CountSeptember 2024 12:07pm4.9 10 3/uL4.0-11.0PATHOLOGY REVIEW NOT INDICATED Vital Signs Vital Reading Result Reference Range Collection Date/Time Height 74 [in_i] March 11, 2025 6:07xxXinlfk62.19 kgAugust 2024 6:49amHeart Rate94 /min 60-100August 2024 6:49amRespiratory rate14 /pqp89-45Eaksoo 2024 6:49amOxygen saturation by Pulse daddnext86 %95-100August 2024 6:49amBP Ivyqxomu836 mm[Hg]100-140[facility] 2024 6:49amBP Oylmnsdov97 mm[Hg]60-100 March 11, 2025 6:49amBMI (Body Mass Index)22.9 kg/m5Iqymhs 2024 6:49am Body mass index (BMI) [Percentile] Per age and sex51.4 %Normal or healthy weight; 5th to 85th percentileAunew mexico behavioral health institute at las vegast 2024 6:49amBody mass index (BMI) [Percentile] Per age and sex54.9 %Normal or healthy weight; 5th to 85th percentileAdventhealth Hendersonville2024 1:87ltRpqdri14 [in_i]April 11, 2025 9:00am Tfirtx40.10 kgSeptember 2024 9:00amHeart Rate86 /dev58-794Mtrglrqik 29th, 2025 9:00amRespiratory rate16 /wbn19-94Hgnqnazyk 29th, 2025 9:00amOxygen saturation by Pulse wvdajiqn92 %95-100Sept2024 9:00amBP Vshtoesa956 mm[Hg]100-140Sept2024 9:00amBP Jgxmghkwc08 mm[Hg]60-100Sept2024 9:00amBMI (Body Mass Index)23.2 kg/s7Rghznoxpd 2024 9:00amBody mass index (BMI) [Percentile] Per age and sex54.6 %Normal or healthy weight; 5th to 85th percentileSeptember 2024 9:14zlPoklvn65 [in_i]April 19, 2025 7:66fnFixtzm80.00 kgOctober 2024 7:46amHeart Rate71 /bfw87-825Afifwvl 2024 7:46amBP Xqmqcdrf742 mm[Hg]100-140October 2024 7:46amBP Nmuxldqzn92 mm[Hg]60-100October 2024 7:46amBMI (Body Mass Index)23.5 kg/n8Imiowzs 2024 7:46amBody mass index (BMI) [Percentile] Per age and sex58.1 %Normal or healthy weight; 5th to 85th percentileOctober 2024 7:87muHmwcnh92 [in_i] May 24, 2025 10:07pxViioyc80.91 kgNovember 2024 10:00amHeart Rate97 /mtu39-867Mjcjzlms 2024 10:00amBP Zlgxdyys142 mm[Hg]100-140November 2024 10:00amBP Nzhhvlkfw61 mm[Hg]60-100November 2024 10:00amBMI (Body Mass Index)23.7 kg/z9Wqccriaf 2024 10:00amBody mass index (BMI) [Percentile] Per age and sex59.8 %Normal or healthy weight; 5th to 85th percentileNovember 2024 10:53vlLyisyx74 [in_i]May 31, 2025 1:28pm Ykxfum78.55 kgNovember 2024 1:28pmHeart Rate75 /bnn45-668Btlqptxw 2024 1:28pmBP Wneqwzvf428 mm[Hg]100-140November 2024 1:28pmBP Skaggmeew37 mm[Hg]60-100November 2024 1:28pmBMI (Body Mass Index)23.3 kg/k7Omploxoj 2024 1:28pmBody mass index (BMI) [Percentile] Per age and sex54.9 %Normal or healthy weight; 5th to 85th percentileMay 31, 2025 1:28pm Advance Directives Advance Directive Response Recorded Date/ Time Advance Directives No May 2:13pm Insurance Providers Guarantor Gerard Larose Address [address] [place] [address]Xgaotwr Info.Home Phone: Coverage Status Update:2025 Payer Group Member ID Coverage Type Subscriber Relationship to Subscriber Effective Date Expiration Date [place] Medicaid Id: [id number] Hartley , P Id: [id number] [address] [place] [address] Home Phone: Email: [email or web address] Encounters Encounter Location(s) Arrival/Admit Date Discharge/Departure Date Discharge/Departure Disposition Provider(s) Departed Physician/ Provider Office Visit -[facility] March 11, 2025 8:46am March 11, 2025 9:20am Discharged to home care or self care (routine discharge) Karlie Bianchi MD Non-patient / Non-visit -[facility] March 25, 2025 1:07pm EDWINA Streetereparted Physician/Provider Office Visit-[facility] NeurologySeptember 2024 11:35amSeptember 2024 12:14pmDischarged to home care or self care (routine discharge)Elif Funes , EFVI-GMG-LYsotecxvimNationwide Children's HospitalOctober 2024 10:45amOctober 2024 5:00pmDischarged to home care or self care (routine discharge)EDWINA Streetereparted Physician/Provider [facility] 20[facility] 8:41amOctober 2024 9:30amDischarged to home care or self care (routine discharge)EDWINA Streetereparted Physician/Provider [facility] 2024 9:59amNovember 2024 10:18amDischarged to home care or self care (routine discharge)Karlie Bianchi , MDDeparted Physician/Provider Office Visit-[facility] GastroNovember 2024 1:25pmNovember 2024 2:15pmDischarged to home care or self care (routine discharge)Harry Goldstein , OFFICE MACHINERY OR EQUIPMENT INSTALLER Recent Diagnosis Onset Date Admit Date Cervical pain (neck) Unknown February 8:46am Lumbar back pain Unknown March 11 8:46am Thoracic back pain Unknown March 11, 2025 8:46am Anxiety, generalized Unknown March 152024 11:35am Chronic tension-type headach e, not intractable Unknown April 11, 2025 11:35am Constipation Unknown April 19 8:41am ADHD Unknown May 24, 025 9:59am Cervical pain (neck) Unknown May 242024 9:59am Constipation Unknown May 24, 025 9:59am Lumbar back pain Unknown May 24, 2025 9:59am Thoracic back pain Unknown May 9:59am Abdominal pain Unknown May 31, 2 025 1:25pm Change in bowel habits Unknown May 31, 2025 1:25pm Constipation Unknown May 31, 2 025 1:25pm Assessments Diagnosis Onset Date Resolution Status Admit Date Cervical pain (neck) acuteAugust 2024 8:46amLumbar back painacuteAugust 2024 8:46am Thoracic back painacuteAugust 2024 8:46amAnxiety, generalizedchronic April 11, 2025 11:35amChronic tension-type headache, not intractable chronicSeptember 2024 11:35amConstipationacuteOctober 2024 8:41amADHD acuteNovember 2024 9:59amCervical pain (neck)acuteMay 24, 2025 9:59amConstipationacuteNovember 2024 9:59amLumbar back painacuteNovember 2024 9:59amThoracic back painacuteNov2024 9:59amAbdominal pain acuteNovember 2024 1:25pmChange in bowel habitsacuteMay 31, 2025 1:25pmConstipationacuteNovember 2024 1:25pm Plan of Treatment Author Elif Funes [facility] HospitalAuthoredSeember 2024 11:49amMrTorrey Jean is a 19-year-old male with a past medical history of anxiety and ADHD. It is my impression that the patient likely has tension-type headaches which could be aggravated by stress, anxiety, neck pain, and variable sleep quality. He reports chronic daily headaches which are bilateral, pressure-like in quality, and moderate intensity. These can sometimes be associated with posterior neck and shoulder tension. They are not accompanied by typical migrainous features of aura, photophobia, phonophobia, nausea, or vomiting. The patient has tried and failed OTC Tylenol, meloxicam, low dose tizanidine, amitriptyline 10 mg PO QHS, and physical therapy (ineffective) for his symptoms without success. He denies red flag symptoms. His neurologic examination is unremarkable today, and no focal neurologic deficits are identified. CT brain on 01/30/2025 was unremarkable. He would like to try an alternative medication to help improve headache management. PLAN: - Stop amitriptyline (the patient already did this on his own) - Start topiramate 25 mg mouth daily at bedtime for headache prevention. I counseled the patient on the intended purpose of this medication and possible adverse effects in detail. He verbalizes understanding and wishes to proceed. I advised the patient to call and update our office in 2 weeks if this medication is ineffective, and we can consider dose increase. He verbalizes understanding - Okay to continue physical therapy for neck pain/tension if helpful - Try to ensure adequate hydration, adequate sleep, stress management, and regular physical exercise as tolerated - Sleep hygiene measures - I do not believe MRI of the brain is indicated at this time. I would consider this at follow-up should the patient develop new or worsening symptoms or should he fail to have a positive response to treatment The patient has history of generalized anxiety disorder. He is following with his primary care provider for management and is currently taking Lexapro. PLAN: - Follow up closely with PCP for management - Could consider referral for counseling in the future, as this could potentially provide benefit for headache prevention and anxiety Diagnosis and treatment plan discussed in detail. The patient verbalizes understanding and wishes to proceed. All questions answered. Author Karlie Bianchi [facility] HospitalAutredSeptember 2024 2:38pmCheck xrays as ordered. Continue PT. Author Karlie Bianchi [facility] 2024 10:35amStart low dose linzess. Referral placed to GI. stop lexapro. start strattera. will restart PT soon as above as above Check xrays as ordered. Continue PT. Author [facility]October 2024 8:32amRecommend healthy diet, good water intake. Dulcolax daily and high fiber foods. Future Tests Future scheduled test information is unavailable Pending Tests Test Name Ordered Date Scheduled Date XR cervical spine 5V* March 11, 2025 8:09am XR lumbar spine 2-3V*March 11, 2025 8:09amXR thoracic spine 3V*March 11, 2025 8:09amCT abdomen pelvis w conN[facility]re[facility] 2024 2:05pm Future Visits Future appointment information is unavailable Future Procedures Procedure Name Ordered Date Scheduled Date Calprotectin, Fecal May 31, 2025 2:05pm Complete Blood Count Auto DiffNovember 2024 2:05pmCeliacNovember 2024 2:05pmC-Reactive ProteinNovhealthsouth rehabilitation hospital [facility] [place] 2024 2:05pmFree T4 (Free Thyroxine) May 31, 2025 2:05pmThyroid Stimulating HormoneNov2024 2:05pm Future Medications Future medication information is unavailable Patient Instructions Instruction Admit Date Low back pain in adults March 11 8:46am
--- OUTSIDE RECORDS SUMMARY | 2025-06-02 11:36 | XMS_ITS | Clinical Summary ---
Author Organization [facility] Address [address] [place] [address] Care Team Providers Care Line Controller Name Role Phone Karlie Bianchi MD Primary Care Provider Allergies No known active allergies Medications MedicationSigDispense QuantityRefillsLast FilledStart DateEnd DateStatus tiZANidine (Zanaflex) 2 MG tablet Indications:Chronic tension-type headache, not intractableTake 1 tablet (2 mg) by mouth Daily 30 tablet 5Active Social History Tobacco UseTypesPacks/DayYears UsedDateSmoking Tobacco: Never AssessedSex and Gender InformationValueDate RecordedSex Assigned at BirthNot on fileLegal Sex Male09/25/2022 6:38 PM EDTGender IdentityNot on fileSexual OrientationNot on file Last Filed Vital Signs Vital SignReadingTime TakenCommentsBlood Lagumnnt307/7204 9:00 AM EDT Xaefq4252 9:00 AM EDTTemperature--Respiratory Rate--Oxygen Mdjrqbswal14% 10/26/2024 9:00 AM EDTInhaled Oxygen Concentration--Pfytgm98.6 kg (182 lb) 10/26/2024 9:00 AM EDTHeight--Body Mass Index-- Plan of Treatment Health MaintenanceDue DateLast DoneCommentsCOVID-19 Vaccine ( season) , 04/11/2021Influenza Vaccine (#1), 06/17/2006Pneumococcal Vaccine: Pediatrics (0 to 5 Years) and At-Risk Patients (6 to 64 Years)Aged OutNo longer eligible based on patient's age to complete this topic Insurance Care Teams Team MemberRelationshipSpecialtyStart [place] [address] [place] [phone] PCP - GeneralFamily Medicine09/08/24
[2025-06-02 12:10] LABS: Hematocrit 47.9 % (42.0-54.0); Hemoglobin 15.7 g/dL (14.0-18.0); Immature Granulocytes Abs Auto 0.01 10^3/uL (0.00-0.03); Immature Granulocytes Pct Auto 0.2 % (0.0-0.5); Lymphocytes Absolute Auto 1.3 10^3/uL (1.2-3.8); Mean Corpuscular HGB Conc 32.8 g/dL (29.9-35.2); Mean Corpuscular Hemoglobin 25.4 pg (25.9-34.0); Mean Corpuscular Volume 77.5 fL (80.0-94.0); Platelet Count 268 10^3/uL (150-450); Red Blood Count 6.18 10^6/uL (4.70-6.10); White Blood Count 4.2 10^3/uL (4.0-11.0)
--- OUTSIDE RECORDS SUMMARY | 2025-06-02 12:19 | XMS_ITS | CCD ---
Author Organization [facility] Care Team Providers Care Business Continuity Planning Director Name Role Phone DR KARLIE PIERCE Admitting Unavailable STAN, DR KARLIE Acevedo Attending Unavailable STAN, DR KARLIE Acevedo Primary Care Unavailable STAN, DR KARLIE Acevedo Consulting Unavailable AICHHOLZ, RUBBER GOODS INSPECTOR ANGEL Admitting Unavailable AICHHOLZ, RUBBER GOODS INSPECTOR ANGEL Attending Unavailable STAN, DR KARLIE Acevedo Primary Care Unavailable AICHHOLZ, RUBBER GOODS INSPECTOR ANGEL Consulting Unavailable AICHHOLZ, RUBBER GOODS INSPECTOR ANGEL Admitting Unavailable AICHHOLZ, RUBBER GOODS INSPECTOR ANGEL Attending Unavailable STAN, DR KARLIE Acevedo Primary Care Unavailable STAN, DR KARLIE Acevedo Admitting Unavailable STAN, DR KARLIE Acevedo Attending Unavailable STAN, DR KARLIE Acevedo Primary Care Unavailable Karlie Pierce Unavailable Daily Nagel Unavailable Karlie Pierce MD Primary Care Provider [phone] MAMIE RAY Attending Unavailable KARLIE PIERCE Referring Unavailable Elif Meyer Attending Provider Karlie Pierce MD Primary Care Provider [phone] Karlie Pierce MD Attending Provider [phone] KARLIE PIERCE Primary Care Physician Navarro Dixon DO Attending Provider [phone] Karlie Pierce MD Primary Care Provider Elif Meyer Attending Provider Karlie Pierce MD Primary Care Provider Navarro Dixon DO Attending Provider Karlie Pierce MD Attending Provider Marin MELGARN-CLINIC OFFICE ASSISTANT-CElif Attending Provider Karlie Pierce Attending Unavailable Karlie Pierce Primary Care Unavailable Karlie Pierce Admitting Unavailable Arabella Reyes Attending Unavailable Arabella Reyes Attending Unavailable Arabella Reyes Attending Unavailable Arabella Reyes Attending Unavailable Arabella Reyes Attending Unavailable Arabella Reyes Attending Unavailable Allergies Allergy ClassificationReported Allergen(s)Allergy TypeDate of OnsetReaction(s) Facility (2 sources)patient allergy list reviewed by nurse or physiciaPropensity to adverse [id number]:[employer] Other (2 sources)Allergies ReconciledPropensity to adverse [email or web address] Other (1 source)No Known Medication Allergies; Translations: [No Known Medication Allergies]Propensity to adverse reactions (disorder)[facility] Medications Current Medications MedicationDrug Class(es)DatesSig (Normalized)Sig (Original)azithromycin 250 mg oral tablet (1 source)Macrolide AntimicrobialStart: 41-64-3048Ldgwoovmsdix 250 MG 2 tablet on the first day, then 1 tablet daily for 4 days Orally Once a day for5 day(s) Aug, Activedoxycycline hyclate 100 mg oral capsule (1 source)Tetracycline-class DrugStart: 03-30-2025 End: 22-54-7952gimj 1 capsule by mouth twice dailydoxycycline hyclate 100 mg Cap 100 mg = 1 cap(s), Oral, BID, X 4 week(s), # 56 cap(s), Refills(s) 0, Pharmacy: [facility]/pharmacy #[id number], 191, cm, 03/30/25 15:03:00 EDT, Height/Length Dosing, 78, kg, 03/30/25 15:03:00 EDT, Weight Dosing Start Date: 03/30/25 Stop Date: 04/27/25 Status: Ordered Quantity: 56.0 Unit: cap(s) Repeat number: 1escitalopram 5 mg oral tablet (20 sources)Serotonin Reuptake InhibitorStart: 02-16-2025 End: 92-54-9132zwhzrjrxcqmq 5 mg oral tablet 5 mg = 1 tab(s), Refills(s) 0 Start Date: 03/30/25 Status: Ordered Medication Dispense Status: Completed Total Allowed Fills: 1 Fills Dispensed: 0Start: 03-18-2024 End: 43-65-6062mduj 1 tablet by mouth once dailyEscitalopram Oxalate (Lexapro) 5 mg tablet Discontinued 5 MG PO Daily 30 March 17, 2024 11:00pm June 01, 2024 9:27am24 hr guanFACINE 1 mg extended release oral tablet (2 sources)Central alpha-2 Adrenergic AgonistStart: 44-22-6330pjmn 1 mg by mouth once dailyIntuniv 1 MG as directed Orally daily for 30 days November, Active sulfamethoxazole 800 mg / trimethoprim 160 mg oral tablet (1 source)Dihydrofolate Reductase Inhibitor Antibacterial, Sulfonamide AntimicrobialStart: 02-02-2025 End: 71-00-0322Wbtdgsc D.S. 800 mg-160 mg Tab 1 tab(s), Oral, q12hr for 4 week(s), 56 tab(s), Refill(s) 0, [facility]/pharmacy #[id number], 191, cm, 02/02/25 14:18:00 EDT, Height/Length Dosing, 78, kg, 02/02/25 14:18:00 EDT, Weight Dosing Start Date: 02/02/25 Stop Date: 03/02/25 Status: Ordered Quantity: 56.0 Unit: tab(s) Repeat number: 1topiramate 25 mg oral tablet (4 sources)Start: 64-61-5815yeaf 1 tablet by mouth once dailyTopiramate 25 mg tablet Active 25 MG PO Daily April 10, 2025 11:00pm Chronic tension-type headache, not intractable Chronic tension-type headache, not intractable Complies with drug therapy Completed/Discontinued Medications MedicationDrug Class(es)DatesSig (Normalized)Sig (Original)amitriptyline hydrochloride 10 mg oral tablet (16 sources)Tricyclic AntidepressantStart: 01-10-2025 End: 38-15-2823dcbw 1 tablet by mouth once daily at bedtimeAmitriptyline 10 mg tablet Discontinued 10 MG PO Daily at bedtime 90 90 2 February 03, 2025 9:05am Aug ust 2024 10:11am Chronic tension-type headache, not intractable Chronic tension-type headache,not intractableatomoxetine 25 mg oral capsule (20 sources)Norepinephrine Reuptake InhibitorStart: 12-24-2023 End: 44-43-9771cgnq 1 capsule by mouth once dailyAtomoxetine 25 mg capsule Discontinued 0 .ROUTE .COMPLEX 30 2 January 23, 2024 12:03pm March 18, 2024 8:12am TAKE 1 CAPSULE BY MOUTH EVERY DAYStart: 08-28-2023 End: 01-98-9568ifcg 1 tablet by mouth once dailyAtomoxetine 25 mg capsule Discontinued 1 TAB PO Daily August 28, 2023 12:00am December 24, 2023 12:04pm FreeTextSi tablet once a day; Note: Source Status: Continue; Provider: Stan Ziegler ( )take 1 capsule by mouth every twenty-four hours Strattera 25 MG 1 tablet once a day Activeketoconazole 20 mg/ml medicated shampoo (15 sources)Azole AntifungalStart: 03-17-2024 End: 08-56-5000Dravrnmnoeeh 2 % shampoo Discontinued TOPICAL March 16, 2024 11:00pm June 01, 2024 9:27am FreeTextSig: APPLY TO AFFECTED AREA THREE TIMES A WEEK; Note: Source Status: Start; Refills: 0; Qty: 120 Milliliter; Provider: Stan Ziegler ( )Start: 87-11-8311Kahjycjmydsm 2 % 1 application Externally 3x/week for 28 days Oct, ActiveKetoconazole 2 % APPLY TO AFFECTED AREA 3 TIMES A WEEK for 28 ActiveKetoconazole 2 % APPLY TO AFFECTED AREA 3 TIMES A WEEK for 28 Activemeloxicam 15 mg oral tablet (10 sources)Nonsteroidal Anti-inflammatory DrugStart: 09-02-2024 End: 13-86-4975dqxh 1 tablet by mouth once dailyMeloxicam 15 mg tablet Discontinued 15 MG PO Daily 20 0 September 02, 2024 12:00am January 10, 2025 8:52amtiZANidine 4 mg oral tablet (20 sources)Central alpha-2 Adrenergic AgonistStart: 01-24-2025 End: 63-77-2461krsz 1 tablet by mouth every eight hours as neededTizanidine 4 mg tablet Discontinued 4 MG PO Every 8 hours as needed January 23, 2025 11:00pm February 16, 2025 10:11amStart: 10-26-2024 End: 01-74-2127Lvourqalld 2 mg tablet Discontinued 2 MG PO January 09, 2025 11:00pm January 10, 2025 9:26amtraZODone hydrochloride 50 mg oral tablet (14 sources)Serotonin Reuptake InhibitorStart: 03-17-2024 End: 76-05-8223dmpq 1 tablet by mouth once daily at bedtimeTrazodone 50 mg tablet Discontinued 50 MG PO Daily at bedtime March 16, 2024 11:00pm 2023 8:11am FreeTextSi tablet at bedtime as needed Orally Once a day; Note: Source Status:Start; Provider: Stan Albert: 04-45-8497tnen 1 tablet by mouth every twenty-four hourstraZODone HCl 50 MG 1 tablet at bedtime as needed Orally Once a day for 30 day(s) Jul, Active Problems Active Problems Problem ClassificationProblemDateDocumented DateEpisodic/Chronic Administrative/social admission (15 sources)Patient encounter status; Translations: [Persons encountering health services in other specified circumstances]67-51-9126PuqmxajdYesumbx disorders (20 sources)Generalized anxiety disorder; Translations: [Generalized anxiety disorder]41-90-9443NaxyuihWwnvqdsby-deficit, conduct, and disruptive behavior disorders (20 sources)Attention deficit hyperactivity disorder; Translations: [Attention- deficit hyperactivity disorder, unspecified type]Onset: ChronicAttention-deficit, conduct, and disruptive behavior disorders (4 sources)Attention-deficit hyperactivity disorder, unspecified type; Translations: [Attention deficit disorder with hyperactivity]ChronicChronic obstructive pulmonary disease and bronchiectasis (1 source)Bronchitis, not specified as acute or chronicEpisodicFever of unknown origin (7 sources)Fever, unspecified; Translations: [Fever]Onset: 09-99-3536Bjwgvdsq Headache; including migraine (20 sources)Tension-type headache; Translations: [Tension-type headache, unspecified, not intractable]94-60-8600ZblrjkxNmryalzqf (1 source)Influenza due to other identified influenza virus with other respiratory manifestationsEpisodicLymphadenitis (6 sources)Localized enlarged lymph nodes; Translations: [Localized enlarged lymph nodes]Onset: 71-68-0484WjzuuwrpBjopeun and fatigue (12 sources)Fatigue; Translations: [Other fatigue]72-37-0701PvzcaspwMnnktjs (3 sources)Tinea corporis; Translations: [Tinea corporis]EpisodicNausea and vomiting (1 source)Nausea with vomiting, unspecifiedEpisodicOther connective tissue disease (4 sources)Olecranon bursitis, left elbow; Translations: [OLECRANON BURSITIS LEFT ELBOW]Onset: 91-02-2177EyfwayttSovmu connective tissue disease (5 sources)Olecranon bursitis; Translations: [Olecranon bursitis, left elbow] EpisodicOther connective tissue disease (20 sources)Muscle spasm of cervical muscle of neck; Translations: [Other muscle spasm]21-19-5526ZpmveohdXqnac connective tissue disease (2 sources)Other muscle spasm; Translations: [Spasm of muscle]Onset: 04-14-2025 01-54-6626HfpmbdhfLqmqz connective tissue disease (12 sources)Muscle pain; Translations: [Myalgia, unspecified site]02-16-2025 EpisodicOther gastrointestinal disorders (14 sources)Constipation; Translations: [Constipation, unspecified]08-28-2023 EpisodicOther gastrointestinal disorders (1 source)Constipation, unspecified; Translations: [Constipation, unspecified] 25-77-5303ZuhbzlwtCuqbz injuries and conditions due to external causes (3 sources)History of fall; Translations: [History of falling]EpisodicOther male genital disorders (3 sources)Male erectile dysfunction, unspecified; Translations: [Erectile dysfunction]Onset: 26-15-7813YhghtogOeuot screening for suspected conditions (not mental disorders or infectious disease) (4 sources)Full blood count abnormal; Translations: [Other specified abnormal findings of blood chemistry]29-76-0124FekuptxtZldnn skin disorders (3 sources)Folliculitis; Translations: [Follicular disorder, unspecified] EpisodicOther upper respiratory infections (9 sources)Acute upper respiratory infection; Translations: [Acute upper respiratory infections of unspecifiedsite]Onset: 47-62-2415OyzgihtnWurjtcka codes; unclassified (2 sources)Insomnia co-occurrent and due to medical condition; Translations: [Insomnia due to medical condition]ChronicResidual codes; unclassified (1 source)Insomnia due to medical conditionChronicResidual codes; unclassified (5 sources)Insomnia disorder related to known organic factor; Translations: [Insomnia, unspecified]EpisodicResidual codes; unclassified (1 source)Insomnia, unspecifiedEpisodicResidual codes; unclassified (3 sources)Body mass index (BMI) pediatric, 5th percentile to less than 85th percentile for age; Translations:[Body mass index]EpisodicResidual codes; unclassified (3 sources)Insomnia; Translations: [Insomnia, unspecified]EpisodicSpondylosis; intervertebral disc disorders; other back problems (20 sources)Neck pain; Translations: [Low back pain]66-19-9761Anklbawz Unclassified (3 sources)CONTACT W/AND (SUSP) EXPOS COVID-19; Translations: [CONTACT W/AND (SUSP) EXPOS COVID-19]Onset: 06-16-2021 Past or Other Problems Problem ClassificationProblemDateDocumented DateEpisodic/ChronicHeadache; including migraine (3 sources)Headache; Translations: [Headache, unspecified]Onset: 01-19-2015 EpisodicNonspecific chest pain (3 sources)Chest pain; Translations: [Chest pain, unspecified]Onset: 03-25-2016 EpisodicOther acquired deformities (3 sources)Acquired deformity of lower leg; Translations: [Unspecified acquired deformity of unspecified lowerleg]Onset: 40-81-2161JrtmnzncBteya connective tissue disease (3 sources)Pain in limb; Translations: [Pain in unspecified toe(s)]Onset: 36-62-2323PntqkkujJwkjh connective tissue disease (3 sources)Achilles bursitis; Translations: [Achilles bursitis or tendinitis] Onset: 07-62-4880OhlqgtpaLlkvc injuries and conditions due to external causes (3 sources)Injury of head; Translations: [Head injury, unspecified]Onset: 14-80-6861WrmsxgdoZaynx non-traumatic joint disorders (3 sources)Arthralgia of the lower leg; Translations: [Pain in joint, lower leg] Onset: 24-67-2495DtuoteliXufvuvclqoal (1 source)CONTACT W/AND (SUSP) EXPOS COVID-19; Translations: [CONTACT W/AND (SUSP) EXPOS COVID-19]Onset: 06-12-2021 Results Test NameValueInterpretationReference RangeFacilityAmbulatory Visit Summaryon 32-12-8625Kddmgpaknr Visit SummaryAmbulatory Visit Summary ODILIA JEAN :2005 Visit Date:05/24/2025 Ambulatory Visit Instructions Your Diagnosis Erectile disorder Your Care Team Attending Physician - Arabella Pavon Primary Care Physician - KARLIE PIERCE MD This Is Your Medications List Contact prescribing physician if questions or concerns escitalopram (escitalopram 5 mg oral tablet) Procedures Performed None. Discharge Vitals Height 191 cm Height 75 in Weight 78 kg Weight 171.96 lb BMI 21.38 What to do next You Need to Schedule the Following Appointments Follow Up with Arabella Pavon, PHILIP When: Comments: pending discussion Where: Medications What How Much When Instructions Unchanged escitalopram (escitalopram 5 mg oral tablet) 1 Tablets Contact prescribing physician if questions or concerns Allergies No Known Medication Allergies Problems Ongoing [...] you for choosing us for your care. Education Materials Erectile Dysfunction Erectile dysfunction (ED) is the inability to get or keep an erection in order to have sexual intercourse. ED is considered a symptom of an underlying disorder and is not considered a disease. ED mayinclude: ??? Inability to get an erection. ??? [...] or the penis may be too curved toallow for intercourse. ??? Never having nighttime or [...] an erection, and they can be deflated (more content not included)...[facility]/Clinic Noteon 61-62-8613Ocdjqjj Office/Clinic NoteUrology Office/Clinic Note Chief Complaint follow up HPI Staff 19 yr old male here for 6 week f/u w/US results Previous dx: Erectile disorder treated with doxycycline 100mg BID x4 weeks at last visit IPSS- 12 SHIMS-2 patient states he continues to have dysuria, denies any gross hematuria. Intermittent stomach/back pain but states he is having issues with constipation. States he is still having difficulties getting and maintaining and erection. History of Present Illness Staff HPI reviewed and agree. Review of Systems PHQ Score Initial Depression Screen Score: 0 SCORE no fever, chills, malaise, myalgia. no rash/lesions. no chest pain, palpitations, or SOB. no abdominal pain, nausea, vomiting. no unilateral calf swelling, redness, pain Physical Exam Vitals & Measurements HT: 191 cm HT: 75 in WT: 78 kg WT: 171.96 lb BMI: 21.38 General: nontoxic, well-nourished, appears stated age Mouth: moist mucosa Lungs: normal respiratory effort Cardio: regular rate, good distal perfusion Abdomen: nondistended, no suprapubic distention or tenderness, no CVA tenderness Neurologic: Grossly normal Skin: No rashes or suspicious lesions Assessment/Plan IPSS 12(15) 1. Erectile disorder (N52.9: Male erectile dysfunction, [...] Since that time, patient reports pain with erections/ejaculation, burning with urination. Pt also reports that he has premature ejaculation and his penis is smaller at baseline. Pt denies hematuria or blood in semen. Pt denies ever being sexually active, no concerns for STDs. Ptdoes report he is able to wake with erections. PE normal. Pt denies depression, anxiety, heart or vascular disease or DM. Pt was given Bactrim DS BID x4 weeks. 03/30/25: Pt finished 4-week course of Bactrim last week and denies this helping his symptoms. He reports that he continues to have difficulty achieving full erections. He also c/o burning with urination, bladder pressure, straining to start stream and intermittency. Pt continues to deny STD concerns. Discussed changing antibiotic therapy and ordering scrotal US. Discussed differentials with patient including prostatitis/epididymitis. Pt agreeable to plan. 04/05/25 scrotal US - no intratesticular mass or torsion. Bilateral varicoceles. TODAY: Pt finished 4 week course of Doxycycline and denies any improvement in his symptoms. Discussed Scrotal US results with patient today not indicating any acute infection/inflammation. Discussed varicoceles, pt denies scrotal pain. Advised patient that I would have to discuss case with MD to determinenext steps. Discussed possible imaging v cystoscopy. He is agreeable to plan. -Will discuss case with MD -NSAIDs for discomfort -Scrotal support -F/U pending Ordered: E&M of Est. Patient Low 20-29 Min [id number] Follow-up With When Contact Information Amy MILLER, Arabella Frias, URL Additional Instructions: pending MD discussion Patient Education Erectile Dysfunction Problem List/Past Medical History Ongoing Attention deficit hyperactivity disorder Generalized anxiety disorder Neck pain Historical No qualifying data Procedure/Surgical History None. Medications escitalopram 5 mg oral tablet, 5 mg= 1 tab(s) Allergies No Known Medication Allergies Social History Alcohol Never., 02/01/2025 Substance Abuse Never., 02/01/2025 Tobacco Never (less than 100 in lifetime) Tobacco Use:. Never Smokeless Tobacco Use:., 05/24/2025 Family History Family history is negative Immunizations Vaccine Date Status meningococcal conjugate vaccine 05/01/2023 Recorded SARS-CoV-2 (COVID-19) mRNA BNT-162b2 tnx 05/05/2021 Recorded SARS-CoV-2 (COVID-19) mRNA BNT-162b2 vax 04/11/2021 Recorded human papillomavirus vaccine 09/01/2018 Recorded meningococcal conjugate vaccine 01/01/2018 Recorded human papillomavirus vaccine 01/01/2018 Recorded diphtheria/pertussis, acel/tetanus adult 01/01/2018 Recorded measles/mumps/rubella/varicella vaccine 11/27/2010 Recorded diphtheria/pertussis,acel/tetanus/polio 11/27/2010 Recorded hepatitis A pediatric vaccine 08/02/2008 Recorded hepatitis A pediatric vaccine 02/10/2007 Recorded Hib, unspecified formulation 02/10/2007 Recorded DTaP, unspecified formulation 02/10/2007 Recorded measles/mumps/rubella/varicella vaccine 09/19/2006 Recorded influenza virus vaccine, inactivated 07/18/2006 Recorded DTaP, unspecified formulation 07/18/2006 Recorded influenza virus vaccine, inactivated 06/17/2006 Recorded Hib, unspecified formulation 06/17/2006 Recorded diphth/hepB/pertussis,acel/polio/tetanus 06/17/2006 Recorded poliovirus vaccine, inacti (more content not included)...[facility] HospitalComment on above:Result Comment: Electronically Signed By: Arabella Pavon\.br\Date and Time Signed: 05/24/25 11:47 ESTAmbulatory Visit Summaryon 06-12-8070Tpiypoyvnu Visit SummaryAmbulatory Visit Summary ODILIA JEAN Gerard :2005 Visit Date:03/30/2025 Ambulatory Visit Instructions Your [...] With: Arabella Pavon Where: [facility] [address] [place] [address]- Medications What How Much When Instructions Unchanged [...] signed up for this yet, please contact sones Management at [phone] to get signed up today. Language Information Language assistance services are available as needed. [facility] HospitalUrology Office/Clinic Noteon 90-83-9667Otfayos Office/Clinic NoteUrology Office/Clinic Note Chief Complaint 8 week f/u [...] Since that time, patient reports pain with erections/ejaculation, burning with urination. Pt also reports that he has premature ejaculation and his penis is smaller at baseline. Pt denies hematuria or blood in semen. Pt denies ever being sexually active, no concerns for STDs. Ptdoes report he is able to wake with [...] scrotal US. Discussed differentials with patient including prostatitis/epididymitis. Pt agreeable to plan. If symptoms continue after treatment and scrotalUS negative, will discuss case with MD. -Doxycycline 100mg BID x4 weeks, take with food -Scrotal US at [facility], will review results at follow up unless emergent finding -NSAIDs for discomfort -Scrotal support -F/U 6 weeks Ordered: 48952 Measure Post Void residual urine and/or bladder capacity by US- non-imaging E&M of Est. Patient Moderate 30-39 Min 49917 Urnls Dip Stick Auto w/o Microscopy POC 58128 US Scrotum (Contents) Orders: doxycycline, 100 mg = 1 cap(s), Oral, BID, X 4 week(s), # 56 cap(s), Refills(s) 0, Pharmacy: [id number], 191, cm, 03/30/25 15:03:00 EDT, Height/Length Dosing, 78, kg, 03/30/25 15:03:00 EDT, Weight Dosing sulfamethoxazole-trimethoprim, 1 tab(s), Oral, q12hr for 6 week(s), 84 tab(s), Refill(s) 0, [id number], 191, cm, 02/02/25 14:18:00 EDT, Height/Length Dosing, 78, kg, 02/02/25 14:18:00 EDT, Weight Dosing Follow-up With When Contact Information Arabella Pavon, URL Within 6 weeks Additional Instructions: scrotal US [...] vaccine 01/01/2018 Recorded diphtheria/pe (more content not included)...[facility] Comment on above:Result Comment: Electronically Signed By: Arabella Pavon\.br\Date and Time Signed: 03/30/25 15:27 EDTBasophils Auto (Bld) [#/Vol] Ordered By: Karlie Pierce on 37-69-1054Gejjzpdkt (Bld) [#/Vol]0.0 10 3/uL0.0-0.1 [facility] HospitalBasophils/100 WBC Auto (Bld)Ordered By: Karlie Pierce on 37-34-1748Mfmwaqxgc/100 WBC (Bld)0.6 %0.2-2.0[facility] HospitalEosinophils/100 WBC Auto (Bld)Ordered By: Karlie Pierce on 03-25-2025 Eosinophils/100 WBC (Bld)2.5 %0.9-7.0[facility] Erythrocyte distribution width Auto (RBC) [Ratio]Ordered By: Karlie Pierce on 86-30-9866Qgkfnkwpsjw distribution width (RBC) [Ratio]13.2 %11.0-15.0[facility] HospitalHematocrit Auto (Bld) [Volume fraction]Ordered By: Karlie Pierce on 42-70-1923Lcyspyhohq (Bld) [Volume fraction]47.0 %42.0-54.0[facility] HospitalHemoglobin [Mass/volume] in BloodOrdered By: Karlie Pierce on 27-19-1557Tscxsndawd (Bld) [Mass/Vol]15.5 g/dL14.0-18.0[facility] HospitalLaboratory - Hematology and Cell countsOrdered By: Karlie Pierce on 87-23-6789Eineamhj granulocytes/100 WBC (Bld)0.2 %0.0-0.5FTriHealthLeukocytes [#/volume] corrected for nucleated erythrocytes in Blood by Automated counOrdered By: Karlie Pierce on 47-88-0749QNT corrected for nucl RBC Auto (Bld) [#/Vol]4.9 10 3/uL4.0-11.0[facility] Comment on above:PATHOLOGY REVIEW NOT INDICATEDLymphocytes Auto (Bld) [#/Vol] Ordered By: Karlie Pierce on 39-12-6503Whlahpwsyfi (Bld) [#/Vol]1.2 10 3/uL 1.2-3.8[facility] HospitalLymphocytes/100 WBC Auto (Bld)Ordered By: Karlie Pierce on 60-50-6933Bpquxweptnh/100 WBC (Bld)23.9 %20.5-60.0[facility] HospitalH Auto (RBC) [Entitic mass]Ordered By: Karlie Pierce on 24-04-7658HCG (RBC) [Entitic mass]25.7 pgLow25.9-34.0[facility] HospitalMCHC Auto (RBC) [Mass/Vol]Ordered By: Karlie Pierce on 29-59-4293JUUK (RBC) [Mass/Vol]33.0 g/dL29.9-35.2FTriHealthMCV Auto (RBC) [Entitic vol]Ordered By: Karlie Pierce on 70-54-3983AHX (RBC) [Entitic vol]77.9 fLLow80.0-94.0[facility] HospitalMonocytes Auto (Bld) [#/Vol] Ordered By: Karlie Pierce on 57-13-4447Uyopdnrkq (Bld) [#/Vol]0.4 10 3/uL0.3-0.8 [facility] HospitalMonocytes/100 WBC Auto (Bld)Ordered By: Karlie Pierce on 85-99-9880Ivhqrtpgs/100 WBC (Bld)8.0 %1.7-12.0[facility] HospitalNeutrophils Auto (Bld) [#/Vol]Ordered By: Karlie Pierce on 79-54-2062Dapkmurpjef (Bld) [#/Vol]3.2 10 3/uL1.4-6.5FTriHealthNeutrophils/100 WBC Auto (Bld)Ordered By: Karlie Pierce on 03-25-2025 Neutrophils/100 WBC (Bld)64.8 %43.0-75.0[facility] HospitalNo Panel InformationOrdered By: Karlie Pierce on 45-50-4954Cfvxhxpjlbv # (Auto)0.1 10 3/uL0.0-0.7FTriHealthImmature Granulocyte # (Auto)0.01 10 3/uL0.00-0.03[facility] HospitalMonoscreenNegativeNEGATIVE [facility] HospitalPlatelet mean volume Auto (Bld) [Entitic vol] Ordered By: Karlie Pierce on 06-46-4105Fwpqsdgp mean volume (Bld) [Entitic vol] 9.0 fLLow9.5-13.5FTriHealthPlatelets Auto (Bld) [#/Vol] Ordered By: Karlie Pierce on 46-22-1714Omiqpdarb (Bld) [#/Vol]252 10 3/oM771-168 [facility] HospitalRBC Auto (Bld) [#/Vol]Ordered By: Karlie Pierce on 59-90-3322OLQ (Bld) [#/Vol]6.03 10 6/uL4.70-6.10[facility] HospitalLaboratory - Chemistry and Chemistry - challengeOrdered By: Navarro Dixon on 45-81-3871Xwmaqrosq Ql (U)NegativeCleveland Clinic Mercy HospitalGlucose (U) [Mass/Vol]NegativeCleveland Clinic Mercy HospitalKetones Ql (U)Negative [facility] HospitalpH (U)8.0 [pH][facility] Specific gravity (U) [Rel density]1.010[facility] Urobilinogen (U) [Mass/Vol]0.2 mg/dLCleveland Clinic Mercy HospitalLaboratory - Specimen informationOrdered By: Navarro Dixon on 83-88-6957Ouzudwrdfg (U) cloudyCleveland Clinic Mercy HospitalColor (U)yellowCleveland Clinic Mercy HospitalLaboratory - UrinalysisOrdered By: Navarro Dixon on 41-51-3055Xwgrjhbws esterase Test strip Ql (U)NegativeCleveland Clinic Mercy HospitalNitrite Ql (U)NegativeC[facility] Clinic Mer[facility] HospitalProtein Ql (U)+[facility] HospitalNo Panel InformationOrdered By: Navarro Dixon on 14-47-4566Gxxlu Occult BloodNegativeCleveland Clinic Mercy HospitalBasophils Auto (Bld) [#/Vol]Ordered By: Karlie Pierce on 30-21-9769Xboitirln (Bld) [#/Vol]0.0 10 3/uL 0.0-0.1FTriHealthBasophils/100 WBC Auto (Bld)Ordered By: Karlie Pierce on 83-93-7360Nweicralu/100 WBC (Bld)0.8 %0.2-2.0[facility] HospitalEosinophils/100 WBC Auto (Bld)Ordered By: Karlie Pierce on 69-44-5891Xbfghzxrfvh/100 WBC (Bld)3.2 %0.9-7.0[facility] Erythrocyte distribution width Auto (RBC) [Ratio]Ordered By: Karlie Pierce on 70-80-8158Svhctxnxvne distribution width (RBC) [Ratio]13.3 %11.0-15.0[facility] HospitalGlomerular filtration rate (GFR) estimation in non- AmericanOrdered By: Karlie Pierce on 10-63-7406CAD/1.73 sq M.predicted among non-blacks MDRD (S/P/Bld) [Vol rate/Area]mL/min/{1.73_m2}>=60 mL/min/1.73m 2FTriHealthHematocrit Auto (Bld) [Volume fraction]Ordered By: Karlie Pierce on 03-74-9586Qnykfpetjr (Bld) [Volume fraction]48.2 %42.0-54.0 [facility] HospitalHemoglobin [Mass/volume] in BloodOrdered By: Karlie Pierce on 03-63-0678Hbsxukomcy (Bld) [Mass/Vol]15.7 g/dL14.0-18.0[facility] HospitalLaboratory - Chemistry and Chemistry - challengeOrdered By: Karlie Pierce on 08-97-2677Laftgcw [Mass/Vol]9.6 mg/dL8.5-10.1FTriHealthChloride [Moles/Vol]104 mmol/R13-194VgocvxlkuCleveland Clinic Mercy HospitalCK [Catalytic activity/Vol]230 U/K79-426AvfgudopkCleveland Clinic Mercy HospitalCO2 [Moles/Vol]32.8 mmol/LHigh21.0-32.0[facility] Creatinine [Mass/Vol]0.89 mg/dL0.70-1.30[facility] GFR/1.73 sq M.predicted MDRD (S/P/Bld) [Vol rate/Area]mL/min/{1.73_m2}>=60 mL/min/1.[address]m [address] [place], [place] [address]Glucose [Mass/Vol]98 mg/wG66-643 [facility] HospitalPotassium [Moles/Vol]4.7 mmol/L3.5-5.1FUniversity Hospitals Samaritan Medical Centerodium [Moles/Vol]142 mmol/C033-909JqeypbrydCleveland Clinic Mercy HospitalTSH Qn1.020 m[IU]/L0.516-4.130[facility] Urea nitrogen [Mass/Vol]10.0 mg/dL6.4-19.3FTriHealthUrea nitrogen/Creatinine [Mass ratio]11.2 mg/mgC[facility] Clinic Mercy Hospital Laboratory - Hematology and Cell countsOrdered By: Karlie Pierce on 02-16-2025 Immature granulocytes/100 WBC (Bld)0.2 %0.0-0.5FTriHealth Leukocytes [#/volume] corrected for nucleated erythrocytes in Blood by Automated counOrdered By: Karlie Pierce on 50-64-1975FDA corrected for nucl RBC Auto (Bld) [#/Vol]5.0 10 3/uL4.0-11.0[facility] HospitalLymphocytes Auto (Bld) [#/Vol]Ordered By: Karlie Pierce on 56-49-1410Qkzozwrfkfw (Bld) [#/Vol]1.1 10 3/uLLow1.2-3.8[facility] HospitalLymphocytes/100 WBC Auto (Bld) Ordered By: Karlie Pierce on 67-29-8877Ugiqramstgc/100 WBC (Bld)22.0 %20.5-60.0 [facility] Auto (RBC) [Entitic mass]Ordered By: Karlie Pierce on 98-28-5978KCE (RBC) [Entitic mass]25.7 pgLow25.9-34.0[facility] HospitalMCHC Auto (RBC) [Mass/Vol]Ordered By: Karlie Pierce on 02-16-2025 MCHC (RBC) [Mass/Vol]32.6 g/dL29.9-35.2FTriHealthMCV Auto (RBC) [Entitic vol]Ordered By: Karlie Pierce on 64-64-8061QCD (RBC) [Entitic vol]78.9 fLLow80.0-94.0[facility] HospitalMonocytes Auto (Bld) [#/Vol]Ordered By: Karlie Pierce on 48-06-5696Qmvyizfdh (Bld) [#/Vol]0.7 10 3/uL 0.3-0.8[facility] HospitalMonocytes/100 WBC Auto (Bld)Ordered By: aKrlie Pierce on 80-88-6536Qibbppbik/100 WBC (Bld)14.6 %High1.7-12.0[facility] HospitalNeutrophils Auto (Bld) [#/Vol]Ordered By: Karlie Pierce on 96-06-6923Gypjdgahnmv (Bld) [#/Vol]3.0 10 3/uL1.4-6.5FTriHealthNeutrophils/100 WBC Auto (Bld)Ordered By: Karlie Pierce on 02-16-2025 Neutrophils/100 WBC (Bld)59.2 %43.0-75.0[facility] HospitalNo Panel InformationOrdered By: Karlie Pierce on 58-69-2113Btanvtwbxpb # (Auto)0.2 10 3/uL0.0-0.7FTriHealthImmature Granulocyte # (Auto)0.01 10 3/uL0.00-0.03[facility] HospitalPlatelet mean volume Auto (Bld) [Entitic vol]Ordered By: Karlie Pierce on 38-02-5200Bmhvezoa mean volume (Bld) [Entitic vol]8.7 fLLow9.5-13.5FTriHealthPlatelets Auto (Bld) [#/Vol]Ordered By: Karlie Pierce on 05-83-5494Lfofaqbqf (Bld) [#/Vol] 239 10 3/xA599-545YqywvoasuCleveland Clinic Mercy HospitalRBC Auto (Bld) [#/Vol]Ordered By: Karlie Pierce on 22-10-2685XVE (Bld) [#/Vol]6.11 10 6/uLHigh4.70-6.10 [facility] Hospitalerum or plasma anion gap determinationOrdered By: Karlie Pierce on 81-16-4240Aybkw gap [Moles/Vol]9.9 mmol/[facility] SouthAmbulatory Visit Summaryon 13-78-5374Lmhttcoral Visit Summary Ambulatory Visit Summary ODILIA JEAN :2005 Visit Date:02/02/2025 Ambulatory Visit Instructions Your [...] With: Arabella Pavon Where: [facility] [address] [place] [place] [address]- Medications What How Much When Instructions Unchanged tizanidine (tiZANidine 4 mg Tab) 1 Tablets By Mouth Every 8 hours TAKE 1 TABLET EVERY 6-8HOURS NEEDED FOR BACK SPASMS. MAY CAUSE SOME [...] signed up for this yet, please contact [employer]ones Management at [phone] to get signed up today. Language Information Language assistance services are available as needed. [facility] HospitalUrology Office/Clinic Noteon 58-78-9407[facility] Office/Clinic NoteUrology Office/Clinic Note Chief Complaint ED issues HPI [...] bilateral off and on, denies flank pain AIMNA: 2 History of Present Illness Staff HPI [...] Skin: No rashes or suspicious lesions Assessment/Plan DRIVER STARTING GATE self-referral for ED. 1. Erectile dysfunction (N52.9: [...] Since that time, patient reports pain with erections/ejaculation, burning with urination. Pt also reports that he has premature ejaculation and his penis is smaller at baseline. Pt denies hematuria or blood in semen. Pt denies ever being sexually active, no concerns for STDs. Pt does report he is able to wake with erections. Pt denies depr ession, anxiety, heart or vascular disease or DM. Discussed options with patient including long-course antibiotics v scrotal US. Will proceed with antibiotics at this time for possible prostatitis/epididymitis as this has been ongoing for patient for over a year, is not an acute issue. No suspicion for torsion, PE negative for obvious mass. If painful erection and urination continues after antibiotics, will order scrotal US. -Bactrim DS BID x4 weeks, take with food -NSAIDs for discomfort -Scrotal support -F/U 6 weeks Ordered: E&M of New Patient Moderate 45-59 Min 72934 Urnls Dip Stick Auto w/o Microscopy POC 21609 Orders: sulfamethoxazole-trimethoprim, 1 tab(s), Oral, q12hr for 4 week(s), 56 tab(s), Refill(s) 0, [id number], 191, cm, 02/02/25 14:18:00 EDT, Height/Length Dosing, 78, kg, 02/02/25 14:18:00 EDT, Weight Dosing Follow-up With When Contact Information Arabella Pavon URL In 8 weeks Additional Instructions: Patient Education Erectile Dysfunction Total time spent reviewing previous notes/results/external documents, preparing the chart, conducting the encounter [...] Protein Urine Dipstick: Trace (02/02/25 14:10:00) Specific [place] Urine Dipstick: 1.020 (02/02/25 14:10:00) Urine Appearance Urine Dipstick: Clear (02/02/25 14:10:00) Urine Color Urine Dipstick: Yellow (02/02/25 14:10:00) Urobilinogen Urine Dipstick: Normal 0.2-1 EU/dl (02/02/25 14:10:00) pH Urine Dipstick: 8.5 (02/02/25 14:10:00)[facility] Comment on above:Result Comment: Electronically Signed By: Arabella Pavon.lupe\Date and Time Signed: 02/02/25 16:08 EDTCULTURE THROATon 70-61-0311IDNUHIA THROATCulture Observations: NORMAL RESPIRATORY ZACHARY.NormalKettering Health Behavioral Medical CenterComment on above:Performed By: #### THRTCX #### [facility] [address] [place] [address] Dr. Paloma Shin-19 PCR (CVDTBH)on 66-83-6268GGMI-CoV-2 (COVID-19) RNA SOHAN+probe Ql (Unsp spec)Not detectedNormalNOT DETECTEDKettering Health Behavioral Medical Center Comment on above:Result Comment: This test is not yet approved or cleared by the [place] FDA. When there are no FDA-approved or cleared tests available, and other criteria are met, FDA can make tests available under an emergency access mechanism called an Emergency Use Authorization (EUA). The EUA for this test is supported by the [place] of Health and Human Service's (HHS's) declaration that circumstances exist to justify the emergency use of in vitro diagnostics for the detection and/or diagnosis of the virus that causes COVID- 19. This EUA will remain in effect (meaning [...] of clinical signs and symptoms consistent with SARS-CoV-2.Performed By: #### CVDTBH #### [facility] [address] [place] [address] [address] Paloma Shin-19 PCR (CVDTBH)on 32-56-1603KZLY-CoV-2 (COVID-19) RNA SOHAN+probe Ql (Unsp spec)Not detectedNormalNOT DETECTEDThe [facility] Comment on above:Result Comment: This test is not yet approved or cleared by the [place] FDA. When there are no FDA-approved or cleared tests available, and other criteria are met, FDA can make tests available under an emergency access mechanism called an Emergency Use Authorization (EUA). The EUA for this test is supported by the [place] of Health and Human Service's (HHS's) declaration that circumstances exist to justify the emergency use of in vitro diagnostics for the detection and/or diagnosis of the virus that causes COVID- 19. This EUA will remain in effect (meaning [...] of clinical signs and symptoms consistent with SARS-CoV-2.Performed By: #### [facility] #### [facility] [address] [address] [address] Paloma Roldan Vital Signs Date TimeVital SignValuePerforming TgghotyhlOmmadkgr87-00-1070 10:00-0500Body bxerim924.96 cmKarlie Pierce MD Work Phone: [facility]11-11-2025 10:00-0500 Body mass index (BMI) [Percentile] Per age and sex59.8 %Karlie Pierce MD Work Phone: [facility]11-11-2025 10:00-0500 Body mass index (BMI) [Ratio]23.7 kg/e9XnrctaKarlie Pierce MD Work Phone: [facility]11-11-2025 10:00-0500 Body evsidk86.91 kgKarlie Pierce MD Work Phone: [phone]11-11-2025 10:00-0500 Diastolic blood sqksyrim73 mm[Hg]Karlie Pierce MD Work Phone: [phone]11-11-2025 10:00-0500 Heart rate97 /Kenny Pierce MD Work Phone: [phone])[address]11-11-2025 10:00-0500 Systolic blood pkuiqfqe235 mm[Hg]Karlie Pierce MD Work Phone: [phone])[address] [place], [place] 1203310-07-2025 08:46-0400 Body .96 cmKarlie Pierce MD Work Phone: [phone] [place], [place] 1203310-07-2025 08:46-0400 Body mass index (BMI) [Percentile] Per age and sex58.1 %Karlie Pierce MD Work Phone: [phone] [place], [place] 1203310-07-2025 08:46-0400 Body mass index (BMI) [Ratio]23.5 kg/h6SfnfvuKarlie Pierce MD Work Phone: [phone])[address] [place], [place] 1203310-07-2025 08:46-0400 Body sjgrru21 kgKarlie Pierce MD Work Phone: [phone] [place], [place] 1203310-07-2025 08:46-0400 Diastolic blood blpepuya16 mm[Hg]Karlie Pierce MD Work Phone: [phone] [place], [place] 1203310-07-2025 08:46-0400 Heart rate71 /Kenny Pierce MD Work Phone: [phone])[address] [place], [place] 1203310-07-2025 08:46-0400 Systolic blood mm[Hg]Karlie Pierce MD Work Phone: [phone])[address] [place], [place] 1203309-29-2025 10:00-0400 Body insyaf034.96 cmKarlie Pierce MD Work Phone: [phone])[address] [place], [place] 1203309-29-2025 10:00-0400 Body mass index (BMI) [Percentile] Per age and sex54.6 %Karlie Pierce MD Work Phone: [phone]09-29-2025 10:00-0400 Body mass index (BMI) [Ratio]23.2 kg/y1XjjmksKarlie Pierce MD Work Phone: [phone]09-29-2025 10:00-0400 Body fzjsne32.1 kgKarlie Pierce MD Work Phone: [phone]72[facility]09-29-2025 10:00-0400 Diastolic blood iowbxvec77 mm[Hg]Karlie Pierce MD Work Phone: [phone])[address]09-29-2025 10:00-0400 Heart rate86 /Kenny Pierce MD Work Phone: [phone])22[address]09-29-2025 10:00-0400 Respiratory rate16 /Kenny Pierce MD Work Phone: [phone])79[address]09-29-2025 10:00-0400 SaO2% (BldA) [Mass fraction]98 %Karlie Pierce MD Work Phone: [phone])[address]09-29-2025 10:00-0400 Systolic blood mm[Hg]Karlie Pierce MD Work Phone: [phone])[address]08-29-2025 07:49-0400 Body zzgdyl973.96 cmKarlie Pierce MD Work Phone: [phone])[address]08-29-2025 07:49-0400 Body mass index (BMI) [Percentile] Per age and sex51.4 %Karlie Pierce MD Work Phone: [phone]08-29-2025 07:49-0400 Body mass index (BMI) [Ratio]22.9 kg/l4RarfymKarlie Pierce MD Work Phone: [phone])[address]08-29-2025 07:49-0400 Body kvgddu79.19 kgKarlie Pierce MD Work Phone: [phone])38[address]08-29-2025 07:49-0400 Diastolic blood mm[Hg]Karlie Pierce MD Work Phone: [phone])[address]08-29-2025 07:49-0400 Heart rate94 /Kenny Pierce MD Work Phone: [phone])13892 [address]08-29-2025 07:49-0400 Respiratory rate14 /Kenny Pierce MD Work Phone: [phone] [place], [place] 1203308-29-2025 07:49-0400 SaO2% (BldA) [Mass fraction]97 %Karlie Pierce MD Work Phone: [phone] [place], [place] 1203308-29-2025 07:49-0400 Systolic blood bacriubu754 mm[Hg]Karlie Pierce MD Work Phone: [phone])[address] [place], [place] 1203308-06-2025 11:08-0400 Body ydvlrv330.96 cmKarlie Pierce MD Work Phone: [phone])[address] [place], [place] 1203308-06-2025 11:08-0400 Body mass index (BMI) [Percentile] Per age and sex47.9 %Karlie Pierce MD Work Phone: [phone] [place], [place] 1203308-06-2025 11:08-0400 Body mass index (BMI) [Ratio]22.6 kg/t9JjewtsKarlie Pierce MD Work Phone: [phone])[address] [place], [place] 1203308-06-2025 11:08-0400 Body qsoqql38.83 kgKarlie Pierce MD Work Phone: [phone] [place], [place] 1203308-06-2025 11:08-0400 Diastolic blood siwaynpi17 mm[Hg]Karlie Pierce MD Work Phone: [phone])[address] [place], [place] 1203308-06-2025 11:08-0400 Heart rate79 /Kenny Pierce MD Work Phone: [phone] [place], [place] 1203308-06-2025 11:08-0400 Systolic blood cohmdhnw032 mm[Hg]Karlie Pierce MD Work Phone: 1(424)[address] [place], [place] 1203307-14-2025 14:37-0400 Body mysiui639.96 cmKarlie Pierce MD Work Phone: 1(860)[address] [place], [place] 1203307-14-2025 14:37-0400 Body mass index (BMI) [Percentile] Per age and sex49.6 %Karlie Pierce MD Work Phone: [phone])[address]07-14-2025 14:37-0400 Body mass index (BMI) [Ratio]22.7 kg/i6WmvnckKarlie Pierce MD Work Phone: [phone])[address]07-14-2025 14:37-0400 Body mcynbv25.28 kgKarlie Pierce MD Work Phone: [phone])71292 [address]07-14-2025 14:37-0400 Diastolic blood bepaahgd48 mm[Hg]Karlie Pierce MD Work Phone: [phone])[address] [place], [place] 1203307-14-2025 14:37-0400 Heart rate78 /Kenny Pierce MD Work Phone: 1(810)[address] [place], [place] 1203307-14-2025 14:37-0400 Systolic blood jyevoexc288 mm[Hg]Karlie Pierce MD Work Phone: 1(862)[address] [place], [place] 1203306-30-2025 09:46-0400 Body wxpeds336.96 cmKarlie Pierce MD Work Phone: [phone])[address] [place], [place] 1203306-30-2025 09:46-0400 Body mass index (BMI) [Percentile] Per age and sex49.9 %Karlie Pierce MD Work Phone: [phone])[address]06-30-2025 09:46-0400 Body mass index (BMI) [Ratio]22.7 kg/a0PtfshrKarlie Pierce MD Work Phone: [phone])[address]06-30-2025 09:46-0400 Body xqgvod51.28 kgKarlie Pierce MD Work Phone: [phone])94[address]06-30-2025 09:46-0400 Diastolic blood igmnsoai39 mm[Hg]Karlie Pierce MD Work Phone: [phone])[address]06-30-2025 09:46-0400 Heart rate55 /Kenny Pierce MD Work Phone: 1(419)[address] [place] [address] Ukzaas90-73-0661 09:46-0400 Respiratory rate16 /minKarlie Pierce MD Work Phone: [facility]06-30-2025 09:46-0400 SaO2% (BldA) [Mass fraction]98 %Karlie Pierce MD Work Phone: [facility]06-30-2025 09:46-0400 Systolic blood qqburiev300 mm[Hg]Karlie Pierce MD Work Phone: [facility]04-15-2025 09:00-0400 Body yttvjx50.56 kgChristopher Flor DO Work Phone: 1([phone]-[facility] CenterKwgdewpfag62-85-1914 09:00-0400Diastolic blood fnsfwsly34 mm[Hg]Christbryoner Flor DO Work Phone: 1([phone])811-[address] [place], [place] [address]Sergcghfhv97-87-6989 09:00-0400Heart rate59 /min Christopher Flor DO Work Phone: [phone]-[facility] CenterTvcdufjywb63-31-2167 09:00-8102ZhL1% (BldA) [Mass fraction]96 %Christopher Flor DO Work Phone: [phone])130-[facility] CenterGezsjdlgko95-10-4181 09:00-0400Systolic blood qczojmbj171 mm[Hg]Christopher Flor DO Work Phone: 1(686)650-[facility] CenterNrltclgvyo77-04-0347 10:130500Body qbquko208.96 cmC[facility] Hospital02-20-2025 10:13-0500Body mass index (BMI) [Percentile] Per age and sex47.2 %[facility]02-20-2025 10:13-0500Body mass index (BMI) [Ratio]22.3 kg/m6CdgvnvsxbC[facility] Clinic [facility] Hospital02-20-2025 10:13-0500Body .92 kgC[facility] 09-02-2024 10:130500Diastolic blood anrracvj56 mm[Hg][facility]02-20-2025 10:130500Heart rate71 /[facility] 09-02-2024 10:13-0500Systolic blood htjsqxit151 mm[Hg][facility]11-19-2024 09:14-0500Body jkuxhn146.96 [facility]11-19-2024 09:14-0500Body mass index (BMI) [Percentile] Per age and sex 61.8 %[facility]11-19-2024 09:14-0500Body mass index (BMI) [Ratio]23.3 kg/a6CeigaamjpC[facility] Clinic [facility] Hospital11-19-2024 09:14-0500 Body ksmlxu15.55 kgC[facility] Hospital11-19-2024 09:14-0500 Diastolic blood mwiylmwj13 mm[Hg][facility]11-19-2024 09:14-0500Heart rate70 /[facility]11-19-2024 09:14-0500Systolic blood nwzwsleh081 mm[Hg][facility] 03-18-2024 09:07-0400Body .96 [facility] 03-18-2024 09:07-0400Body mass index (BMI) [Percentile] Per age and sex58.6 % [facility]09-05-2024 09:07-0400Body mass index (BMI) [Ratio]22.9 kg/u2OjypoogsdC[facility] Clinic [facility] Hospital09-05-2024 09:07-0400Body rrwmul41.19 [facility]09-05-2024 09:07-0400Diastolic blood mm[Hg][facility]09-05-2024 09:07-0400 Heart rate73 /[facility]09-05-2024 09:07-0400Systolic blood pzlchave164 mm[Hg][facility]02-15-2024 09:45-0500 Body idyhgs135.96 [facility]02-15-2024 09:45-0500Body mass index (BMI) [Percentile] Per age and sex55.5 %[facility]02-15-2024 09:45-0500Body mass index (BMI) [Ratio]22.3 kg/z1KqdtoskdmC[facility] Clinic [facility] Hospital02-15-2024 09:45-0500Body hrluuu61.92 kgC[facility] Clinic [facility] Hospital02-15-2024 09:45-0500Diastolic blood oywgjaxv75 mm[Hg] [facility]02-15-2024 09:45-0500Heart rate65 /minC[facility] Clinic [facility]cy Hospital02-15-2024 09:45-0500Systolic blood hqkqfvje393 mm[Hg] [facility]02-08-2024 09:30-0500Body ysavfu216.96 cm Daily Nagel Other [employer] Other 02-08-2024 09:30-0500Body mass index (BMI) [Ratio] 22.85 kg/x8WvlkuhfiDaily Nagel Other [employer] Other 02-08-2024 09:30-0500Body wacvje34.74 kgDaily Nagel Other [employer] Other 02-08-2024 09:30-0500Diastolic blood cehshehy67 mm[Hg] Daily Nagel Other [employer] Other 02-08-2024 09:30-5530FcJ1% (BldA) [Mass fraction]96 % Daily Nagel Other [employer] Other 02-08-2024 09:30-0500Systolic blood cowtfrqu958 mm[Hg] Daily Nagel Other [employer] Other 01-08-2024 08:30-0500Body axvvtf457.96 cmKarlie Pierce Other [facility]01-08-2024 08:30-0500 Body mass index (BMI) [Ratio]22.98 kg/n2JkapjuKarlie Pierce Other [employer] Other 01-08-2024 08:30-0500Body .19 kgKarlie Pierce Other [facility]01-08-2024 08:30-0500 Diastolic blood xmzoaxyq07 mm[Hg]Karlie Pierce Other [facility]01-08-2024 08:30-0500 Systolic blood owallkpg530 mm[Hg]Karlie Pierce Other [facility]05-03-2023 09:30-0400 Body nxfkze399.69 cmKarlie Pierce Other [employer] Other 05-03-2023 09:30-0400Body mass index (BMI) [Ratio] 22.77 kg/u7SyeupsKarlie Pierce Other [employer] Other 05-03-2023 09:30-0400Body qoyyad60.38 kgKarlie Pierce Other [employer] Other 05-03-2023 09:30-0400Diastolic blood ztmpirts74 mm[Hg] Karlie Pierce Other [employer] Other 05-03-2023 09:30-4313AdV4% (BldA) [Mass fraction]98 % Karlie Pierce Other [employer] Other 05-03-2023 09:30-0400Systolic blood kiloszfr729 mm[Hg] Karlie Pierce Other [employer] Other 02-22-2023 10:00-0500Body yqbewb557.69 cmKarlie Pierce Other [facility] [employer] Other 02-22-2023 10:00-0500Body mass index (BMI) [Ratio] 22.25 kg/q3QqignzKarlie Pierce Other [facility] Other 02-22-2023 10:00-0500Body jejbhl64.57 kgKarlie Pierce Other [facility] Other 02-22-2023 10:00-0500Diastolic blood cbirhggm96 mm[Hg] Karlie Stan Other [facility] Other 02-22-2023 10:00-0500Systolic blood feukildf127 mm[Hg] Karlie Pierce Other [facility] Other Encounters Encounter DateEncounter TypeCare ProviderFacilityStart: 05-24-2025 End: 36-60-3203qfhbuqkypbXjirss J GaleaFacility:EU tart: 05-24-2025 End: 12-78-2810Ccdgnia encounter procedureAlysha Altagracia Galea [facility] Start: 05-24-2025 End: 73-56-2742ipxzxidwxtQidpir E Braun MD Work Phone: -[facility]: 05-24-2025 End: 11-40-4335Lxcdums encounter procedureKarlie Pierce MD-[facility] Work Phone: Start: 05-16-2025 End: 48-65-6997ckpjhxaegoUhmxlj J GaleaFacility:EU [facility] Connecticuttart: 05-16-2025 End: 20-17-5065Jpovjfy encounter procedureAlysha J Galea [facility] Start: 05-11-2025 End: 29-56-1371pkbgqdrfafBgesck J GaleaFacility:EU uskyStart: 05-11-2025 End: 84-20-6450Ggwvyjc encounter procedureArabella Reyes [facility] Start: 04-19-2025 End: 78-59-2571ggvvpobykpVfevmz E Braun MD Work Phone: [facility] Work Phone: Start: 04-19-2025 End: 12-08-9790Pcaybej encounter Megan Pierce MD-[facility] Work Phone: Start: 04-14-2025 End: 09-62-5468yrixlpggcvTrffdl E Braun MD Work Phone: [phone]-FouzipqoxAvita Health System Gal[facility] HospitalStart: 04-14-2025 End: 09-03-2218Emtleqqseq RecurringKarlie Pierce MD-[facility] Start: 70-89-4494Bnkwlenbsz RecurringKarlie Pierce MD-[facility] Start: 04-11-2025 End: 78-48-2972cclkihvyiiJglmqv E Braun MD Work Phone: [facility] Work Phone: Start: 04-11-2025 End: 35-97-5704Simbzhb encounter Rosi Funes APRN-FNP-[facility] Neurology Work Phone: Start: 03-30-2025 End: 44-34-7523ammydgjoyrMurbwg J GalcorinaFacility:EU yStart: 03-30-2025 End: 73-42-5918Jmnncph encounter procedureArabella Reyes [facility] Start: 53-57-5900Dnk-patient / Non-visitKarlie Pierce MD-[facility] Work Phone: Start: 26-14-9355Pjaksnweqz Sharon Pierce MD -[facility] HospitalStart: 03-11-2025 End: 75-04-3588akoqhuhdekAajpfl E Braun MD Work Phone: [facility] Work Phone: Start: 03-11-2025 End: 54-91-7356Pnqxmsa encounter procedureKarlie Pierce MD-[facility] Work Phone: Start: 35-83-5617Ctrgyaubyr Sharon Pierce MD -[facility] HospitalStart: 02-25-2025 End: 86-12-5484ghrmcczcaaAaorvy E Braun MD Work Phone: [facility] Work Phone: Start: 02-25-2025 End: 02-63-3042Esabwzl encounter procedureNavarro Dixon DO-[facility] Work Phone: Start: 38-42-5184Elrwangqiv Sharon Pierce MD -[facility] HospitalStart: 02-16-2025 End: 99-42-4339yspwvuoheoBnskru E Braun MD Work Phone: [facility] Work Phone: Start: 02-16-2025 End: 12-27-3145Okqsfoc encounter procedureKarlie Pierce MD-[facility] Work Phone: Start: 02-02-2025 End: 39-73-7013hiomnwksisKzcugz J GaleaFacility:EU [place]kyStart: 02-02-2025 End: 72-80-5257Ckhupjr encounter procedureAlysha J Amy [facility] Start: 32-11-3060uikzoywyvxDwtmfy GaleaFacility:EU [place]Start: 01-24-2025 End: 06-51-1933tqeodvzhrnFapnrl E Braun MD Work Phone: [facility] Work Phone: Start: 01-24-2025 End: 01-77-7756Aqhmpan encounter procedureKarlie Pierce MD-[facility] Work Phone: Start: 01-10-2025 End: 36-32-6918dgsxgdoakxNpawpk E Braun MD Work Phone: [facility] Work Phone: Start: 01-10-2025 End: 49-23-6236Xjxrgdm encounter Rosi Funes [facility] Work Phone: Start: 10-26-2024 End: 49-18-6563Jzygxp flowsheetChristopher Flor DO Work Phone: ana [place]ANDUSKYStart: 10-26-2024 End: 50-29-6154Atytfk flowsheetChristopher Flor DO Work Phone: ana SANDUSKYStart: 10-26-2024 End: 87-81-8597Jemrxc outpatient new 45 minutesChristopher Flor DO Work Phone: ana SANDUSKYComment on above:Chronic tension-type headache, not intractable (Primary Dx)Start: 10-26-2024 End: 79-47-7786exwfvjlpkcPZSULYJHUIP HASSETTNot AvailableStart: 09-02-2024 End: 29-60-6594udkgodsffcWbzyljajhSCCI Hospital [facility] Work Phone: Start: 09-02-2024 End: 50-29-7850Nrafdfy encounter procedureKhris Physician [facility] Work Phone: Start: 06-01-2024 End: 89-33-4747avlcgqwmoxVywnntfojSCCI Hospital [facility] Work Phone: Start: 06-01-2024 End: 07-57-8794Yqgpkly encounter procedureKhris Physician Group-[facility] Work Phone: Start: 03-18-2024 End: 58-90-5902pwhqjlgvrfCyuqadvyjDayton Osteopathic Hospital Work Phone: Start: 03-18-2024 End: 02-02-8655Zlbnbgq encounter procedureM[facility] Work Phone: start: 08-28-2023 End: 58-97-0631nconebuwagEtqdkkdmoDayton Osteopathic Hospital Work Phone: Start: 08-28-2023 End: 10-90-2658Ksjpqui encounter procedureMission Hospital [facility] Work Phone: Start: 08-21-2023 End: 51-54-7461tnmmtmtsjcIamkltun Rohrbacher Other noOcclutech Other Start: 26-23-5124Gewrhn outpatient visit 15 minutes Daily Rodriguez [facility]art: 07-21-2023 End: 38-15-7722ljanvammoxPfiiao Stan Other noOcclutech Other Start: 09-37-3913Vobisg outpatient visit 15 minutes Karlie Bach [facility]: 07-21-2023 End: 61-84-1567Sstcuju encounter procedureMission Hospital [facility] Work Phone: Start: 06-09-2023 End: 20-66-2952zpyblehcdqPjrxlk Pierce Other noOcclutech Other start: 65-30-5903Bqgcmbowt encounterMarjose ReddyOur Community Hospitaltart: 11-13-2022 End: 56-44-9768xyphfdtbeyQiwqfq Pierce Other noOcclutech Other Start: 51-26-2931Pfunfq outpatient visit 15 minutes Karlie Bach [facility] ClinicStart: 09-04-2022 End: 10-52-5476zkqmjfkmjtGbcimy Braun Other noOcclutech Other Start: 19-83-5045Fbklbg outpatient visit 15 minutes Karlie Dixon [facility] ClinicStart: 05-07-2022 End: 88-98-1524yvlqddedfyPN KARLIE PIERCEFacility:P1Gcffo: 29-02-4300Jbvgi health medical examinationKarlie Pierce Other noOcclutech Other Start: 19-76-3371Kypa child visitKarlie Pierce Other noOcclutech Other Start: 06-13-2021 End: 41-00-6777knlilugptyGTD ANGEL AICHHOLZFacility:E2Vefhq: 06-12-2021 End: 38-41-3143hxpfapxpuxQL KARLIE PIERCEFacility:H1 Procedures DateProcedureProcedure DetailPerforming ClinicianDepression screeningKarlie Pierce Other Nonr (qualifier value)Arabella Reyes Plan of Treatment DateCare ActivityDetailAuthorStart: 82-96-9379eacrltwjkuGwvvzosluxLgbjpafr:EU [place]kyStart: 47-05-3691Dkcmebsyi vaccinationInfluenza Vaccine (Season Ended) [facility] HealthcareStart: 01-10-2025 End: 24-97-1296Jmssgxm encounter kpcaluazo97/30/2025 9:40 AM EDT Office Visit TIP Melissa [address] [address] Elif Funes NP [address] [place] [address] TIP PETERSONUSKYStart: 10-26-2024 End: 36-02-8325Lyjvtdz encounter /15/2025 9:00 AM EDT Office Visit TIP KOBE [address] [place] [address] Mamei Ray, [address] [place] [address] ArrivedTIP KATZomment on above:ArrivedEKG 12 channel [facility] YoungstownPatient EducationLow back pain in adults [facility] Work Phone: XR [facility] 5 [facility] Lum[facility] spine 2 or 3 [facility] Thoracic spine 3 [facility] Immunizations Immunization DateImmunizationNotesCare PnychrsyInsimjqa96-69-1899fbynyntloxbud ACWY vaccine, unspecified formulationAlysha Galea [facility] 599470-23-2021COVID-19 Vaccine Pfizer - Documentation Purposes OnlyKarlie Pierce Other [facility]09-29-2021SARS-CoV-2 (COVID-19) mRNA BNT-162b2 vaxAlysha Galea [facility]02-19-2019HPV, unspecified formulationAlysha Galea [facility]06-21-2018HPV, unspecified formulationAlysha Galea [facility]06-21-2018meningococcal ACWY vaccine, unspecified formulationAlysha Galea [facility]06-21-2018tetanus toxoid, reduced diphtheria toxoid, and acellular pertussis vaccine, adsorbedAlysha Galea [facility]05-17-2011Diphtheria, tetanus toxoids and acellular pertussis vaccine, and poliovirus vaccine, inactivatedAlysha Galea [facility]05-17-2011measles, mumps, rubella, and varicella virus vaccineAlysha Galea [facility]01-20-2009hepatitis A vaccine, unspecified formulationAlysha Galea [facility]07-31-2007DTaP, unspecified formulationAlysha Galea [facility]07-31-2007hepatitis A vaccine, unspecified formulationAlysha Galea [facility]07-31-2007Hib, unspecified formulationAlysha Galea [facility]03-09-2007measles, mumps, rubella, and varicella virus vaccineAlysha Galea [facility]01-05-2007DTaP, unspecified formulationAlysha Galea [facility]01-05-2007influenza virus vaccine, unspecified formulationChedwardo Ray DO Work Phone: [facility] 599472-05-2006DTaP-hepatitis B and poliovirus vaccineAlysha Galea [facility] 599472-05-2006Hib, unspecified formulationAlysha Galea [facility] 599472-05-2006influenza virus vaccine, unspecified formulationAlysha Galea [facility]07-05-2006diphtheria, tetanus toxoids and acellular pertussis vaccine Arabella Galea [facility]07-05-2006haemophilus influenzae type b vaccine, PRP-T conjugateAlysha Galea [facility]07-05-2006poliovirus vaccine, unspecified formulationAlysha Galea [facility]05-10-2006diphtheria, tetanus toxoids and acellular pertussis vaccine Arabella Galea [facility]05-10-2006poliovirus vaccine, unspecified formulationAlysha Galea [facility]02-02-2006hepatitis B vaccine, pediatric or pediatric/adolescent dosage Arabella Galea [facility] Payers DatePayer CategoryPayerPolicy [id number]-pay2020Medicaid (Managed Care)[employer] Member Subscriber Plan / Payer (Effective 2019-Present) Name: Odilia Jean Relation to Subscriber: Self Name: Odilia Jean Payer ID: Not on file Group ID: Not on file Type: Not on file Address: [address] [id number] [id number] 2.16.840.1.419444.3.57[id number] 2.16.840.1.498899.3.57[id number] 2.840.1.254623.3.57[id number] 2.16840.1.995964.3.57[id number] 2.16840.1.641800.3.57[id number] 2.0.1.373678.3.57[id number] 2.0.1.252698.3.57[id number] 2.0.1.588338.3.57[id number] 2.840.1.861007.3.57[id number] [id number] (STD) [id number] 2..1.722053.3.579.2.531 Social History DateTypeDetailFacilityUnknown if ever smokedNort Smile Other Sex Assigned At [facility] Start: 64-17-4537Lbe Assigned At [facility] Start: 03-18-2024 End: 64-56-5472Entgfvi smoking status NHISNever smoked tobacco (finding) [facility] End: 24-57-0575JtvUkyx (finding)[facility] HospitalToday [facility] smoking status NHISTobacco smoking consumption unknownMineral Area Regional Medical CenterStart: 2005 Sex assigned at birthNot on [facility]Today [facility] smoking statusNever [facility] Hospitalexual Orientation [facility] [place] Clinical Notes 09-04-2022 to 05-24-2025 Note Date & KrtnCmrnVjdgfhjh95-29-8624 Hospital Discharge instructions Patient Education 05/24/2025 11:44:18 Erectile Dysfunction Erectile Dysfunction Erectile dysfunction (ED) is the inability to get or keep an erection in order to have sexual intercourse. ED is considered a symptom of an underlying disorder and is not considered a disease. ED mayinclude: Inability to get an erection. Lack of [...] back or pelvic injuries, multiple sclerosis, Parkinson's disease,spinal cord injury, and stroke. Certain medicines, such [...] or the penis may be too curved toallow for intercourse. Never having nighttime or morning [...] penis. During this procedure, a blood vessel froma different part of the body is placed into the penis to allow blood to flow around (bypass) damaged or blocked blood vessels. Lifestyle changes, such as exercising more, losing weight, and quitting smoking. Follow these instructions at home: Medicines Take juyh-uhd-tlwsicx and prescription medicines only as told by your health care provider. Do not increase the dosage without first discussing it with your health care provider. If you are using self-injections, do injections as directed by your health care provider. Make sureyou avoid any veins that are on the surface of the penis. After giving an injection, apply pressureto the injection site for 5 minutes. Talk [...] you need help quitting, ask your health careprovider. Before using a vacuum pump, read the instructions that come with the pump and discuss any questionswith your health care provider. Keep all follow-up [...] provider. Document Revised: 09/26/2021 Document Reviewed: 09/26/2021 [employer] Patient Education 2023 [employer]. Follow Up Care 05/23/2025 12:22:53 With:Amy MILLER, Arabella Frias, URL Address: When: Unknown Comments:pending discussion [facility] 11-11-2025 NotePatient Education Urology Erectile Dysfunction Erectile dysfunction (ED) is the inability to get or keep an erection in order to have sexual intercourse. ED is considered a symptom of an underlying disorder and is not considered a disease. ED mayinclude: ??? Inability to get an erection. ??? [...] The tube is inserted into the opening atthe tip of the penis, which is the [...] these instructions at home: Medicines ??? Take vnvr-tpd-bgrqtaf and prescription medicines only as told by [...] ??? Do not u (more content not included)...[facility]09-17-2025 Hospital Discharge instructions Patient Education 03/30/2025 15:25:55 Erectile Dysfunction Erectile Dysfunction Erectile dysfunction (ED) is the inability to get or keep an erection in order to have sexual intercourse. ED is considered a symptom of an underlying disorder and is not considered a disease. ED mayinclude: Inability to get an erection. Lack of [...] back or pelvic injuries, multiple sclerosis, Parkinson's disease,spinal cord injury, and stroke. Certain medicines, such [...] or the penis may be too curved toallow for intercourse. Never having nighttime or morning [...] penis. During this procedure, a blood vessel froma different part of the body is placed into the penis to allow blood to flow around (bypass) damaged or blocked blood vessels. Lifestyle changes, such as exercising more, losing weight, and quitting smoking. Follow these instructions at home: Medicines Take bmmp-phe-qcpjccx and prescription medicines only as told by your health care provider. Do not increase the dosage without first discussing it with your health care provider. If you are using self-injections, do injections as directed by your health care provider. Make sureyou avoid any veins that are on the surface of the penis. After giving an injection, apply pressureto the injection site for 5 minutes. Talk [...] you need help quitting, ask your health careprovider. Before using a vacuum pump, read the instructions that come with the pump and discuss any questionswith your health care provider. Keep all follow-up [...] provider. Document Revised: 09/26/2021 Document Reviewed: 09/26/2021 [employer] Patient Education 2023 [employer]. Follow Up Care 02/02/2025 14:47:09 With:Amy MILLER, Arabella Frias, URL Address: When:6 weeks Comments:scrotal US [facility] 09-17-2025 NotePatient Education Urology Erectile Dysfunction Erectile dysfunction (ED) is the inability to get or keep an erection in order to have sexual intercourse. ED is considered a symptom of an underlying disorder and is not considered a disease. ED mayinclude: ??? Inability to get an erection. ??? [...] The tube is inserted into the opening atthe tip of the penis, which is the [...] these instructions at home: Medicines ??? Take qwtb-fum-eeqwezq and prescription medicines only as told by [...] ??? Do not u (more content not included)...[facility]08-29-2025 Evaluation note* Diagnosis Onset Date Resolution Status Admit Date Cervical pain (neck) acuteAugust 2024 8:46amLumbar back painacuteAugust 2024 8:46am Thoracic back painacuteAugust 2024 8:46amAnxiety, generalizedchronic Ginger 2024 11:35amChronic tension-type headache, not intractable chronicSeptember 2024 11:35amConstipationacuteOctober 2024 8:41am [facility] Work Phone: 1(436) 303-121907-23-2025 Hospital Discharge instructions Patient Education 02/02/2025 16:07:52 Erectile Dysfunction Erectile Dysfunction Erectile dysfunction (ED) is the inability to get or keep an erection in order to have sexual intercourse. ED is considered a symptom of an underlying disorder and is not considered a disease. ED mayinclude: Inability to get an erection. Lack of [...] back or pelvic injuries, multiple sclerosis, Parkinson's disease,spinal cord injury, and stroke. Certain medicines, such [...] or the penis may be too curved toallow for intercourse. Never having nighttime or morning [...] penis. During this procedure, a blood vessel froma different part of the body is placed into the penis to allow blood to flow around (bypass) damaged or blocked blood vessels. Lifestyle changes, such as exercising more, losing weight, and quitting smoking. Follow these instructions at home: Medicines Take njvf-zmv-yfxtyyp and prescription medicines only as told by your health care provider. Do not increase the dosage without first discussing it with your health care provider. If you are using self-injections, do injections as directed by your health care provider. Make sureyou avoid any veins that are on the surface of the penis. After giving an injection, apply pressureto the injection site for 5 minutes. Talk [...] you need help quitting, ask your health careprovider. Before using a vacuum pump, read the instructions that come with the pump and discuss any questionswith your health care provider. Keep all follow-up [...] provider. Document Revised: 09/26/2021 Document Reviewed: 09/26/2021 [employer] Patient Education 2023 [employer]. Follow Up Care 01/27/2025 10:12:15 With:Arabella Pavon, URL Address: When:Within 8 Week(s) [facility] [place] 07-23-2025 NotePatient Education Urology Erectile Dysfunction Erectile dysfunction (ED) is the inability to get or keep an erection in order to have sexual intercourse. ED is considered a symptom of an underlying disorder and is not considered a disease. ED mayinclude: ??? Inability to get an erection. ??? [...] The tube is inserted into the opening atthe tip of the penis, which is the [...] these instructions at home: Medicines ??? Take jrdp-nyk-mcxdous and prescription medicines only as told by [...] ??? Do not u (more content not included)...[facility]07-14-2025 Evaluation note* Diagnosis Onset Date Resolution Status Admit Date Trapezius muscle spasm acuteJuly 2024 2:13pmChronic tension-type headache, not intractablechronic January 24, 2025 2:13pmAnxiety, generalizedacuteAugust 2024 11:04amFatigue acuteAugust 2024 11:04amMuscle painacuteAugust 2024 11:04amTrapezius muscle spasmacuteAugust 2024 11:04amChronic tension-type headache, not intractablechronicAugust 2024 11:04amCervical pain (neck)acuteAugust 2024 8:46amLumbar back painacuteAugust 2024 8:46amThoracic back painacute March 11, 2025 8:46amEncounter prior to initiation of medicationacute April 11, 2025 11:35amChronic tension-type headache, not intractable chronicSeptember 2024 11:35am [facility] Work Phone: 1(163) 397-937307-14-2025 Evaluation note* Diagnosis Onset Date Resolution Status Admit Date Trapezius muscle spasm acuteJuly 2024 2:13pmChronic tension-type headache, not intractablechronic January 24, 2025 2:13pmFatigueacuteAugust 2024 11:04amMuscle painacuteAugust 2024 11:04amTrapezius muscle spasmacuteAugust 2024 11:04amAnxiety, generalizedchronicAugust 2024 11:04amChronic tension-type headache, not intractablechronicAugust 2024 11:04amCervical pain (neck)acuteAugust 2024 8:46amLumbar back painacuteAugust 2024 8:46amThoracic back painacute March 11, 2025 8:46amAnxiety, generalizedchronicSeptember 2024 11:35am Chronic tension-type headache, not intractablechronicSeptember 2024 11:35am [facility] Work Phone: 1(187) 857-437206-30-2025 Evaluation note* Diagnosis Onset Date Resolution Status Admit Date Encounter prior to initiation of medicat ion acuteJune 2024 9:41amChronic tension-type headache, not intractablechronic January 10, 2025 9:41am [facility] Work Phone: 1(938) 834-549806-30-2025 Evaluation note* Diagnosis Onset Date Resolution Status Admit Date Encounter prior to initiation of medicat ion acuteJune 2024 9:41amChronic tension-type headache, not intractablechronic January 10, 2025 9:41amTrapezius muscle spasmacuteJuly 2024 2:13pmChronic tension-type headache, not intractablechronicJuly 2024 2:13pmFatigueacute [place] 2024 11:04amMuscle painacuteAugust 2024 11:04amTrapezius muscle spasmacuteAugust 2024 11:04amChronic tension-type headache, not intractablechronicAugust 2024 11:04am [facility] Work Phone: 1(123) 216-551206-30-2025 Evaluation note* Diagnosis Onset Date Resolution Status Admit Date Encounter prior to initiation of medicat ion acuteJune 2024 9:41amChronic tension-type headache, not intractablechronic January 10, 2025 9:41amTrapezius muscle spasmacuteJuly 2024 2:13pmChronic tension-type headache, not intractablechronicJuly 2024 2:13pmAnxiety, generalizedacuteAugust 2024 11:04amFatigueacuteAugust 2024 11:04am Muscle painacuteAugust 2024 11:04amTrapezius muscle spasmacuteAugust 2024 11:04amChronic tension-type headache, not intractablechronicAugust 2024 11:04am [facility] Work Phone: 1(851) 621-647206-30-2025 Evaluation note* Diagnosis Onset Date Resolution Status Admit Date Encounter prior to initiation of medicat ion acuteJune 2024 9:41amChronic tension-type headache, not intractablechronic January 10, 2025 9:41amTrapezius muscle spasmacuteJuly 2024 2:13pmChronic tension-type headache, not intractablechronicJuly 2024 2:13pmAnxiety, generalizedacuteAugust 2024 11:04amFatigueacuteAugust 2024 11:04am Muscle painacuteAugust 2024 11:04amTrapezius muscle spasmacuteAugust 2024 11:04amChronic tension-type headache, not intractablechronicAugust 2024 11:04amCervical pain (neck)acuteAugust 2024 8:46amLumbar back pain acuteAugust 2024 8:46amThoracic back painacuteAugust 2024 8:46am [facility] Work Phone: 1(207) 922-959604-15-2025 History of Present illness Narrative* Ronalashutosh Flor, - 10/26/2024 9:00 AM EDT Images from [...] , wrist extensors , wrist flexor , glass embosser strength 5/5. LUE Strength deltoid , biceps , triceps , wrist extensors , wrist flexor , glass embosser strength 5/5. RLE Strength illopsoas, quadriceps, tibialis [...] reflex 2+ . Miner's sign negative. Coordination: Ikawss-td-foqm testing and rapid alternating movements are normal [...] plan, and return instructions documented in this encounterMineral Area Regional Medical [id number] Evaluation note* Diagnosis Onset Date Resolution Status Admit Date ADHD acuteSept2023 9:04amAnxiety, generalizedacuteSept2023 9:04amConstipationacuteNov2023 9:12amTrapezius muscle spasmacute June 01, 2024 9:12am [facility] Work Phone: 1(516) 665-957902-08-2024 Evaluation note* Encounter Date Diagnosis Assessment Notes Treatment Notes Treatment Clinical Notes Aug, Type B influenza (ICD-10 - J10.1 ) The patient was seen today for ER/Urgent Care follow-up. All available records were reviewed and discussed with the patient. All new medications prescribed were reviewed. Any additional changes are noted above. Course of influenza discussed with patient. Tamiflu discussed with patient and grandmother, that heis out of the window. No work/school/sports 5-7 days due to the highly contagious nature of illness. No school until afebrile/asymptomatic x24 hours. Discussed supportive therapy with hydration, rest, cough treatment. Educated that cough can last for up to 2 weeks after fever and other symptoms have resolved. Discussed worsening symptoms and when to seek treatment in the ER. Push fluids. Good hand washing. Disinfect surfaces in the home. Follow up PRN. Aug,Nausea and vomiting, unspecified vomiting type (ICD-10 - R11.2)May take Zofran as needed Aug,ronchitis (ICD-10 - J40)Will add on Zpak as he continues to run high fevers and there could be a bacterial cause for these continued fevers. Directed on use. Follow-up for any worsneing or changes in symptoms. Pt and his grandmother verbalize understanding. 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 Agrees to try trazodone. Jul,DHD (ICD-10 - F90.9)Pt considering d/c strattera after basketball season if problem w insomnia continues. Otherwise it is helping w his concentration well. [facility] Other 05-03-2023 Evaluation note* Encounter Date Diagnosis Assessment Notes Treatment Notes Treatment Clinical Notes November, ADHD (ICD-10 - F90.9) Agree with stopping strattera as he had significant side effects including anxiety and insomnia. Offered low dose stimulant med as the end of the school year is in 3 weeks. Mom is hesitant to start acontrolled substance med, requests a med like strattera. Will start w lowest dose of Intuniv. 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 I hesitate to try a rx med for insomnia on a 17 year old. If needed I would consider clonidine or trazodone. Aug,DHD (ICD-10 - F90.9)chronic. Has been stable on a low dose of strattera for years. This med should not increase is anxiety or insomnia. [facility] Other Evaluation + Plan note Future Appointments Appointment Date:03/30/2025 09:00:00 AM Scheduled Provider:Arabella Pavon Location:[facility] Appointment Type:URO Office Visit [facility] Evaluation + Plan note Future Appointments Appointment Date:05/11/2025 08:20:00 AM Scheduled Provider:Arabella Pavon Location:[facility] Appointment Type:URO Office Visit [facility] Evaluation noteNo InformationNort Smile Other Evaluation noteNo assessment information available [facility] Work Phone: Evaluation note* Diagnosis Onset Date Resolution Status Admit Date Tension type headache acuteFebruary 2024 9:57am [facility] Work Phone: Evaluation note* Diagnosis Chronic tension-type headache, not intractable- Primary Chronic tension type headache documented in this encounter [facility] Diagnosis Onset Date Resolution Status Admit Date Encounter prior to initiation of medicat ion acuteJune 2024 9:41amChronic tension-type headache, not intractablechronic January 10, 2025 9:41am [facility] Work Phone: History general Narrative - Reported* Type Description Date Medical History ADHD Medical HistoryOlecranon bursitis, left elbowMedical HistoryAnxiety, generalized [facility] Other [facility] general Narrative - Reported* Type Description Date Medical History ADHD Medical HistoryOlecranon bursitis, left elbowMedical HistoryAnxiety, generalized Surgical HistoryProblem Title : past surgical history reviewed, Problem Description : past surgical history reviewed, Problem Comment : reviewed - no changes required, Problem Status : Active, [facility] general Narrative - Reported* Type Description Date Medical History ADHD Medical HistoryOlecranon bursitis, left elbowMedical HistoryAnxiety, generalized Surgical HistoryNo Surgical history information [facility] Other Hospital course Narrative No data available for this section [facility] Hospital Discharge instructions No data available for this section [facility] Progress note No data available for this section [facility] [place] Reason for referral (narrative)No reason for referral information availableB[facility] Work Phone: Reason for visit Narrative* Consultation (Routine) - ClosedSpecialtyDiagnoses / ProceduresReferred By ContactReferred To Contact Neurology Diagnoses Headache, unspecified Tension-type headache, unspecified, not intractable Procedures [place] OFFICE/OUTPATIENT [facility] [place] LOW [facility] 30 MINUTES Karlie Pierce MD Phone: tel: fax: Mamie Ray, [address] [phone] Phone: tel: fax: Referral IDStatusReasonStart DateExpiration DateVisits RequestedVisits [id number] Consult and Treat [facility] Healthcare Summary Purpose Family History No Family History Records FoundNo Family History Records Found No data available for this section No data available for this section No data available for this section No data available for this section No Family History Records FoundNo Family History Records Found No data available for this section Advance Directives Advance Directive Response Recorded Date/ [...] back pain March 11, 2025 8: 46am Chief Complaint Admit Date Neuro f/u January 24, 2025 2:13 pm medication questions February 16, 2025 11 :04am UA:Burning/Back Pain February 25, 2025 1 :45pm depressed March 11, 2025 8: 46am C only; back spasms March 25, 2025 11:00am 3 month follow up April 11, 2025 11:35am Reason for Visit Admit Date Trapezius muscle spasm January 24, 2025 2 [...] back pain March 11, 2025 8: 46am Encounter prior to initiation of medicat ion April 11, 2025 11:35am Chronic tension-type headache, not intra ctable April 11, 2025 11:35am Chief Complaint Admit Date Neuro f/u January 24, 2025 2:13 pm medication questions February 16, 2025 11 :04am UA:Burning/Back Pain February 25, 2025 1 :45pm depressed March 11, 2025 8: 46am 3 month follow up April 11, 2025 11:35am C only; back spasms April 14, 2025 10 :45am Bowel Issues April 19, 2025 8: 41am Reason for Visit Admit Date Trapezius muscle spasm January 24, 2025 2 :13pm Chronic tension-type headache, not intra ctable January 24, 2025 2:13pm Fatigue February 16, 2025 11: 04am Muscle pain February 16, 2025 11: 04am Trapezius muscle spasm February 16, 2025 11:04am Anxiety, generalized February 16, 2025 11 :04am Chronic tension-type headache, not intra ctable February 16, 2025 11:04am Cervical pain (neck) March 11, 2025 8 :46am Lumbar back pain March 11, 2025 8: 46am Thoracic back pain March 11, 2025 8: 46am Anxiety, generalized April 11 11:35am Chronic tension-type headache, not intra ctable April 11, 2025 11:35am Chief Complaint Admit Date UA:Burning/Back Pain February 25, 2025 1 :45pm depressed March 11, 2025 8: 46am 3 month follow up April 11, 2025 11:35am C only; back spasms April 14, 2025 10 :45am Bowel Issues April 19, 2025 8: 41am Reason for Visit Admit Date Cervical pain (neck) March 11, 2025 8 :46am Lumbar back pain March 11, 2025 8: 46am Thoracic back pain March 11, 2025 8: 46am Anxiety, generalized April 11 11:35am Chronic tension-type headache, not intra ctable April 11, 2025 11:35am Constipation April 19, 2025 8: 41am Chief Complaint Admit Date UA:Burning/Back Pain February 25, 2025 1 :45pm depressed March 11, 2025 8: 46am 3 month follow up April 11, 2025 11:35am C only; back spasms April 14, 2025 10 :45am Bowel Issues April 19, 2025 8: 41am Discuss Meds May 24, 2025 9:59am Additional Source Comments (unrecognized sect ion and content) No Status Records FoundNo Status Records FoundNo Status Records FoundNo Status Records Found INFORMATION SOURCE (unrecogn ized section and content) DATE CREATED AUTHOR 06/05/2022 [facility] DATE CREATED AUTHOR AUTHOR'S ORGANIZ ATION 10/27/2024 [facility] EPIC DATE CREATED AUTHOR AUTHOR'S ORGANIZ ATION 05/25/2025 [facility] DATE CREATED AUTHOR AUTHOR'S ORGANIZ ATION 05/26/2025 [facility] REASON FOR VISIT (unrecogniz ed section and content) Check UpMedication Discussio nrefillAnxiety, Insomniafever, headache, vomitting, COVID Negative Care Teams (unrecognized sec tion and content) Personnel Name: KARLIE PIERCE MD Address: [address] [place] [address] Telecom: Team Status: Active Member Role Status Dates [...] Start: September 02, 2024 End: September 02, 2024Team MemberRelationshipSpecialtyStart DateEnd Date Karlie Pierce MD [address] [place] [phone] PCP - GeneralFamily Medicine09/08/24Team MemberRelationshipSpecialtyStart DateEnd Date Karlie Pierce MD [address] [place] [phone] PCP - [facility]09/08/24 Team Status: Inactive Member Role Status Dates Elif Funes APRN-CLINIC OFFICE ASSISTANT-C Attending Provider Active Start: January 10, 2025 End: January 10, 2025Angie Streeter Care ProviderActiveStart: January 10, 2025 End: January 10, 2025 Team Status: Inactive Member Role Status Dates Karlie Pierce MD Primary Care Provider Active Start: January 24, 2025 End: January 24, 2025Angy Streeter ProviderActiveStart: January 24, 2025 End: January 24, 2025 Team Status: Inactive Member Role Status Dates Karlie Pierce MD Primary Care Provider Active Start: February 16, 2025 End: February 16, 2025Angy Streeter ProviderActiveStart: February 16, 2025 End: February 16, 2025 Team Status: Active Member Role Status Dates Karlie Pierce MD Primary Care Provider Active Start: February 23, 2025 Angy Streeter ProviderActiveStart: February 23, 2025 Team Status: Inactive Member Role Status Dates Karlie Pierce MD Primary Care Provider Active Start: February 25, 2025 End: February 25dioni Dixon DOAttending ProviderActiveStart: February 25, 2025 End: February 25, 2025 Team Status: Active Member Role Status Dates Karlie Pierce MD Primary Care Provider Active Start: March 07, 2025 Angy Streeter ProviderActiveStart: March 07, 2025 Team Status: Inactive Member Role Status Dates Karlie Pierce MD Primary Care Provider Active Start: March 11, 2025 End: March 11, 2025Angy Streeter ProviderActiveStart: March 11, 2025 End: March 11, 2025 Team Status: Active Member Role Status Dates Karlie Pierce MD Primary Care Provider Active Start: March 25, 2025 Karlie Pierce MDAttending ProviderActiveStart: March 25, 2025 Team Status: Inactive Member Role Status Dates Karlie Pierce MD Primary Care Provider Active Start: April 11, 2025 End: April 11, 2025Elif Funes [id number] ProviderActive Start: April 11, 2025 End: April 11, 2025 Team Status: Active Member Role Status Dates Karlie Pierce MD Primary Care Provider Active Start: April 14, 2025 Karlie Pierce MDAttending ProviderActiveStart: April 14, 2025 Team Status: Inactive Member Role Status Dates Karlie Pierce MD Primary Care Provider Active Start: April 19, 2025 End: April 19, 2025Karlie Pierce MDAttending ProviderActiveStart: April 19, 2025 End: April 19, 2025 Team Status: Active Member Role/Relationship Status Dates Karlie Pierce MD Primary Care Provider Active Team Status: Inactive Member Role/Relationship Status Dates Karlie Pierce MD Primary Care Provider Active Start: February 25, 2025 End: February 25dioni Dixon DOAttending ProviderActiveStart: February 25, 2025 End: February 25, 2025 Team Status: Inactive Member Role/Relationship Status Dates Karlie Pierce MD Primary Care Provider Active Start: March 11, 2025 End: March 11, 2025Karlie Pierce MDAttending ProviderActiveStart: March 11, 2025 End: March 11, 2025 Team Status: Active Member Role/Relationship Status Dates Karlie Pierce MD Primary Care Provider Active Start: March 25, 2025 Karlie Pierce MDAttending ProviderActiveStart: March 25, 2025 Team Status: Inactive Member Role/Relationship Status Dates Karlie Pierce MD Primary Care Provider Active Start: April 11, 2025 End: April 11, 2025Elif Funes [id number] ProviderActive Start: April 11, 2025 End: April 11, 2025 Team Status: Inactive Member Role/Relationship Status Dates Karlie Pierce MD Primary Care Provider Active Start: April 14, 2025 End: April 14, 2025Karlie Pierce MDAttending ProviderActiveStart: April 14, 2025 End: April 14, 2025 Team Status: Inactive Member Role/Relationship Status Dates Karlie Pierce MD Primary Care Provider Active Start: April 19, 2025 End: April 19, 2025Irahannick Kristina Angy Pierce ProviderActiveStart: April 19, 2025 End: April 19, 2025 Team Status: Inactive Member Role/Relationship Status Dates Karlie Pierce MD Primary Care Provider Active Start: May 24, 2025 End: May 24, 2025Irahannick Kristina Angy Pierce ProviderActiveStart: May 24, 2025 End: May 24, 2025 Goals (unrecognized section and content) [...] BE BASED ON THE PRIMARY CLINICAL RECORDS. [employer] [facility]. provides no warranty or guarantee of the accuracy or completeness of information in this document.
[2025-06-02 12:32] LABS: Thyroid Stimulating Hormone 1.173 uIU/mL (0.516-4.130)
[2025-06-03 17:08] LABS: Deamidated Gliadin Abs, IgA 5 units (0-19); Deamidated Gliadin Abs, IgG 2 units (0-19); Immunoglobulin A, Qn, Serum 156 mg/dL (90-386)
== END 2025-06-02 11:33 | disposition home or self-care (01) ==
LOC: LAB 11:33
PROVIDERS: PCP Family Medicine; Visit Provider Registered Nurse
DX: K59.09 Other constipation (principal); R10.9 Unspecified abdominal pain
CPT/HCPCS: 36415; 82784; 84439; 84443; 85025; 86140; 86231; 86258; 86364

== ENCOUNTER 2025-06-30 10:06 | Outpatient (OUT) | payer OTHER, SELFPAY ==
--- OUTSIDE RECORDS SUMMARY | 2025-06-27 04:53 | XMS_ITS | Continuity of Care Document ---
Author Organization [facility] Address [address] [place] [address] Phone Care Team Providers Care Dinkey Engine Mechanic Name Role Phone Karlie Bianchi MD Primary Care Provider Elif Funes APRN-SONAR SUBSYSTEM EQUIPMENT OPERATOR-C Attending Provider + Karlie Bianchi MD Attending Provider Harry Goldstein APRN Attending Provider Sigrid Hutson DO Attending Provider [phone] Care Teams Patient Care Team Team Status: [...] Team Team Status: Inactive Member Role/Relationship Status Martinez Bianchi MD Primary Care Provider Active Start: April 19, 2025 End: April 19, 2025Angy Streeter ProviderActiveStart: April 19, 2025 End: April 19, 2025 Visit Care Team Team Status: Inactive Member Role/Relationship Status Dates Karlie Bianchi MD Primary Care Provider Active Start: May 24, 2025 End: May 24, 2025Karlie Bianchi MDAttpeggy ProviderActiveStart: May 24, 2025 End: May 24, 2025 Visit Care Team Team Status: Inactive Member Role/Relationship Status Dates Karlie Bianchi MD Primary Care Provider Active Start: May 31, 2025 End: May 31, 2025Loy Payne ProviderActiveStart: May 31, 2025 End: May 31, 2025 Patient Care Team Team Status: Active Member Role/Relationship Status Dates Karlie Bianchi MD Primary Care Provider Active Start: June 02, 2025 Loy Payne ProviderActiveStart: June 02, 2025 Patient Care Team Team Status: Inactive Member Role/Relationship Status Dates Karlie Bianchi MD Primary Care Provider Active Start: June 27, 2025 End: June 27, 2025Sigrid Hutson DOAttpeggy ProviderActiveStart: June 27, 2025 End: June 27, 2025 Chief Complaint and Reason for Visit Chief Complaint Admit Date 3 month follow up April 11, 2025 11:35am C only; back spasms April 14, 2025 10 :45am Bowel Issues April 19, 2025 8: 41am Discuss Meds May 24, 2025 9:59am Refer Dr Karlie Bianchi: constipation Nove [facility] 2024 1:25pm New Patient June 27, 2025 8:58am Reason for Visit Admit Date Anxiety, generalized April 11 11:35am Chronic tension-type headache, not intra ctable April 11, 2025 11:35am Constipation April 19, 2025 8: 41am ADHD May 24, 2025 9:59am Constipation May 24, 2025 9:59am Thoracic back pain May 24, 2025 9:59am Cervical pain (neck) May 24, 2025 9:59am Lumbar back pain May 24, 2025 9:59am Change in bowel habits May 31 1:25pm Constipation May 31, 2025 1:25pm Tenesmus May 31, 2025 1:25pm Abdominal pain May 31, 2025 1:25pm Reason for Referral Type Reason(s) Provider Provider Contact Information P ann-marie Address Start Date Bilateral scapula alata Thoracic back pain Muscle painM95.8 - Other specified acquired deformities of musculoskeletal system,M54.6 - Pain in thoracic spine,M79.10 - Myalgia, unspecified siteDetermined by Patient June 27, 2025 Allergies, Adverse Reactions, Alerts Allergen Type Severity Reaction Last Updated Verified Status No Known Allergies Allergy Unknown June 27, 2025 9:03amYesActive Social History Smoking Status Status Start Date End Date Date of Observa tion Never smoked tobacco (finding) June 27, 2025 9:06am Observation Status Observation Response Date of Response Legal Sex Male (finding) Sex Assigned At BirthMaleFebruary 2005 Family History Relationship Condition Age at Onset Recorded Date/T airam maternal grandmother Malignant neoplasm Unknown Chronic obstructive pulmonary diseaseUnknownfamily memberMalignant neoplasm of colonUnknownmaternal grandfatherHeart diseaseUnknown Problems Active Problems Problem Diagnosis/Recorded Date Onset Date Stat us Change in bowel habits May 31, 2025 2:06pm Unkn own Active Trapezius muscle spasm June 01, 2024 9:40am Unkn own Active Anxiety, generalized January 23, 2024 11:31am Unknown Active Fatigue February 16, 2025 10:27am Unknown Act anson Muscle pain February 16, 2025 10:27am Unknown Act anson Winged scapula of both sides June 27, 2025 9:49a m Unknown Active Tension type headache September 02, 2024 10:46am Unkn own Active Tenesmus May 31, 2025 3:04pm Unknown A ctive Abnormal complete blood count March 25, 2025 7:2 9am Unknown Active Encounter prior to initiatio n of medication January 10, 2025 9:25am Unknown Active Chronic tension-type headach e, not intractable January 10, 2025 7:10am Unknown Active ADHD January 23, 2024 11:31am Unknown Acti ve Thoracic back pain March 11, 2025 8:10am Unknown Active Constipation August 28, 2023 12:38pm Unknown Active Inactive/Resolved Problems Problem Diagnosis/Recorded Date Onset Date Stat us Lumbar back pain March 11, 2025 8:10am Unknown Resolved Cervical pain (neck) March 11, 2025 8:10am Unknown Resolved Abdominal pain May 31, 2025 2:07pm Unknown Resolved Medications Medication Status Dose Units Route Directions Qty Days Refills S tart Date Stop Date End Date Reason(s) Instructions Adherence Atomoxetine 25 mg capsule Discontinued 0 .ROUTE.HMEBWEV373Jslv 2023 12:04pmJuly 2023 12:03pmTAKE 1 CAPSULE BY MOUTH EVERY DAYAtomoxetine 25 mg capsuleDiscontinued0.ROUTE.ABHWNOI132Xonu 2023 12:03pmSeptember 2023 8:12amTAKE 1 CAPSULE BY MOUTH EVERY DAY Amitriptyline 10 mg adzyowUdimhanpgedu12FEZZVbkkd at cmhiopf74342Lhoj 2024 9:05amAugust 2024 10:11amChronic tension-type headache, not intractable Chronic tension-type headache, not intractableEscitalopram Oxalate (Lexapro) 5 mg jfkcbdGoincudvesyp3FVHOVucpa312Pdfvineow 12th, 2025 7:23amOctober 2024 9:49amEscitalopram Oxalate (Lexapro) 5 mg dpdmwcPjuthrnhtrnx9VHITOeuga823Ncyewic 2024 9:49amNovember 2024 10:18amAtomoxetine 40 mg capsuleDiscontinued 0.ROUTE.UXKCHSK731Czpvcqbl2024 8:17amDecember 2024 9:03amTAKE 1 CAPSULE BY MOUTH EVERY DAY IN THE MORNINGTopiramate 25 mg nubyheVocgltbhcsem40FE IZCiifo79692Abvlevbnu 28th, 2025 11:00pmMay 31, 2025 1:30pmChronic tension-type headache, not intractable Chronic tension-type headache, not intractableAtomoxetine 40 mg capsule Iywbxkdnilxc25RCQRVtnns zpigeom003NglmpoklMay 24, 2025 12:00amDecember 2024 8:17amLinaclotide (Linzess) 72 mcg fotqyrhRfvdpjphfooz63XIAOBYauyh drmupdd277 May 24, 2025 12:00amDecember 2024 9:50amLinaclotide (Linzess) 72 mcg unhbrakTbkumd47OYCPMQpbwd wxnlpyb687Upslysvl2024 9:43amComplies with drug therapyAtomoxetine 25 mg izgqalkMaxbkgkdrjdn9FUAZLVjfvnDdykjjxo 2023 12:00amJune 2023 12:04pmFreeTextSi tablet once a day; Note: Source Status: Continue; Provider: Tash Ziegler ( )Trazodone 50 mg iqtajmCpaqqvlgspis33CPXURtuiw at bedtimeSept2023 11:00pmSept2023 8:11amFreeTextSi tablet at bedtime as needed Orally Once a day; Note: Source Status: Start; Provider:Tash Ziegler EKetoconazole 2 % shampoo DiscontinuedTOPICALSept2023 11:00pmNovember 2023 9:27am FreeTextSig: APPLY TO AFFECTED AREA THREE TIMES A WEEK; Note: Source Status: Start; Refills: 0; Qty: 120 Milliliter; Provider: Tash Ziegler ( )Escitalopram Oxalate (Lexapro) 5 mg shmdwjLechzfjqkelw2GGESLmcnz992 March 17, 2024 11:00pmNovember 2023 9:27amMeloxicam 15 mg tablet Ubhkjlbnwogn47FFZKJkbzf580Nlzzydum 2024 12:00amJune 2024 8:52am Tizanidine 2 mg usdmucBukhruotewgm7IGRQRbvq 2024 11:00pmJune 2024 9:26amAmitriptyline 10 mg sozxuoUhuufxozobfh21SJLTVjbrb at nnqghkh00137Gglk 2024 11:00pmJuly 2024 9:05amChronic tension-type headache, not intractable Chronic tension-type headache, not intractableTizanidine 4 mg tabletDiscontinued 4MGPOEvery 8 hours as neededJuly 2024 11:00pmAugust 2024 10:11am Escitalopram Oxalate (Lexapro) 5 mg ydqhhjVudikwkfjoog7PORLWfhpoQjdbtq 2024 11:00pmAugust 2024 10:24amEscitalopram Oxalate (Lexapro) 5 mg tablet Sgstzymvwksf3GSSGXfmaq680Qjawbh 2024 10:24amSeptember 2024 7:23am Immunizations Immunization Event Date Not Given Reason Dose Number Manifold Builder Lot Number Reason(s) Given Vaccine Information Statement (VIS) Detail Administration Location [place] [id number] Sharyn Smalls ([employer]) May 05, 2021 Relevant Diagnostic Tests and/or Laboratory Data Laboratory Results Test Collection Date/Time Result Date/Time Result Interpretation Reference Range Result Comment Performing Site Gliadin (Deamidated) IgA Antibody June 02, 2025 11:45am June 02, 2025 11:45am 5 units 0-19Negative 0 - 19 Weak Positive 20 - 30 Moderate to Strong Positive >30Free ThyroxineJune 02, 2025 11:45amNovemb2024 11:45am0.97 ng/dL 0.78-1.34Thyroid Stimulating Hormone GenJune 02, 2025 11:45amNove2024 11:45am1.173 u[iU]/mL0.516-4.130C-Reactive Protein, Quantitative June 02, 2025 11:45amNove2024 11:45am<0.50 mg/dL<=0.50Basophils # (Auto)June 02, 2025 11:45amNove2024 11:45am0.0 10 3/uL 0.0-0.1Gliadin (Deamidated) IgG AntibodyJune 02, 2025 11:45amNove2024 11:45am2 units0-19Negative 0 - 19 Weak Positive 20 - 30 Moderate to Strong Positive >30Basophils (%) (Auto)June 02, 2025 11:45amNovemb2024 11:45am0.9 %0.2-2.0Tissue Transglutaminase IgA AbNove2024 11:45amNove2024 11:45am<2 U/mL0-3Negative 0 - 3 Weak Positive 4 - 10 Positive >10 Tissue Transglutaminase (tTG) has been identified as the endomysial antigen. Studies have demonstr- ated that endomysial IgA antibodies have over 99% specificity for gluten sensitive enteropathy.Eosinophils # (Auto)June 02, 2025 11:45amNovember 2024 11:45am0.1 10 3/uL0.0-0.7Tissue Transglutaminase IgG AbNove2024 11:45amNovemb2024 11:45am<2 U/mL0-5Negative 0 - 5 Weak Positive 6 - 9 Positive >9Eosinophils (%) (Auto) June 02, 2025 11:45amNovember 2024 11:45am2.6 %0.9-7.0Endomysial IgA AntibodyNovember 2024 11:45amNovember 2024 11:45amNegativeNegative HematocritNovember 2024 11:45amNovemb2024 11:45am47.9 %42.0-54.0 Immunoglobulin ANovember 2024 11:45amNove2024 11:41ap635 mg/dL 90-386Performed at: [facility] [address] [id number] Director: Manuel Arvizu PhD, Phone: [phone] 2024 11:45amNovember 2024 11:45am15.7 g/dL14.0-18.0Immature Granulocyte # (Auto)June 02, 2025 11:45amNovemb2024 11:45am0.01 10 3/uL 0.00-0.03Immature Granulocyte % (Auto)June 02, 2025 11:45amNovemb2024 11:45am0.2 %0.0-0.5Lymphocytes # (Auto)June 02, 2025 11:45amNovember 2024 11:45am1.3 10 3/uL1.2-3.8Lymphocytes (%) (Auto)June 02, 2025 11:45amNovember 2024 11:45am29.7 %20.5-60.0Mean Corpuscular Hemoglobin June 02, 2025 11:45amNovember 2024 11:45am25.4 pgBelow low normal 25.9-34.0Mean Corpuscular Hemoglobin ConcentJune 02, 2025 11:45amNove2024 11:45am32.8 g/dL29.9-35.2Mean Corpuscular VolumeJune 02, 2025 11:45amNovemb2024 11:45am77.5 fLBelow low ecsksc75.0-94.0Monocytes # (Auto)June 02, 2025 11:45amNove2024 11:45am0.4 10 3/uL0.3-0.8 Monocytes (%) (Auto)June 02, 2025 11:45amNove2024 11:45am8.7 % 1.7-12.0Mean Platelet VolumeJune 02, 2025 11:45amNove2024 11:45am8.8 fLBelow low normal9.5-13.5Neutrophils # (Auto)June 02, 2025 11:45amNove2024 11:45am2.5 10 3/uL1.4-6.5Neutrophils (%) (Auto) June 02, 2025 11:45amNove2024 11:45am57.9 %43.0-75.0Platelet CountJune 02, 2025 11:45amNove2024 11:59rg115 10 3/iG792-844Ckn Blood CountJune 02, 2025 11:45amNove2024 11:45am6.18 10 6/uL Above high normal4.70-6.10Red Cell Distribution WidthJune 02, 2025 11:45am June 02, 2025 11:45am12.9 %11.0-15.0Corrected White Blood CountJune 02, 2025 11:45amNove2024 11:45am4.2 10 3/uL4.0-11.0 Vital Signs Vital Reading Result Reference Range Collection Date/Time Height 74 [in_i] April 11, 2025 9:73gqBuovar92.10 kgSept2024 9:00amHeart Rate86 /yap92-647Ttccjbpvi 29th, 2025 9:00amRespiratory rate16 /qbc82-13Zijevubdl 2024 9:00amOxygen saturation by Pulse wyzkotaq75 %95-100September 2024 9:00amBP Imyfwsbi348 mm[Hg]100-140September 2024 9:00amBP Qyuatyssz25 mm[Hg]60-100September 2024 9:00amBMI (Body Mass Index)23.2 kg/s9Hrrtfvfip 2024 9:00amBody mass index (BMI) [Percentile] Per age and sex54.6 %Normal or healthy weight; 5th to 85th percentileSeptember 2024 9:88cvUutraw24 [in_i]April 19, 2025 7:24zoBzlffr52.00 kgOctlake [facility] 2024 7:46amHeart Rate71 /zfd18-093Zkdnsly 2024 7:46amBP Bntahzwz708 mm[Hg]100-140Octlake [facility] 2024 7:46amBP Qeqzvdpho53 mm[Hg]60-100October 2024 7:46amBMI (Body Mass Index) 23.5 kg/k9Ktmclgg 2024 7:46amBody mass index (BMI) [Percentile] Per age and sex58.1 %Normal or healthy weight; 5th to 85th percentileOctlake cumberland regional hospital 2024 7:42nqFgaevk88 [in_i]May 24, 2025 10:49jfOqhqmb75.91 kgLake [facility] 2024 10:00amHeart Rate97 /npy36-578Obegclik 2024 10:00amBP Nbvomhsf830 mm[Hg]100-140Nov[facility] 2024 10:00amBP Piiyyxcsm31 mm[Hg]60-100[facility] 2024 10:00amBMI (Body Mass Index)23.7 kg/t0Yrcmzuhk 2024 10:00amBody mass index (BMI) [Percentile] Per age and sex59.8 %Normal or healthy weight; 5th to 85th percentileNovla paz regional hospital 2024 10:32coZjbxjs85 [in_i]May 31, 2025 1:44moKjmfmw45.55 kgLake [facility] 2024 1:28pmHeart Rate75 /bbe73-028 May 31, 2025 1:28pmBP Lwfkemcy354 mm[Hg]100-140May 31, 2025 1:28pm BP Pdhpvguzu32 mm[Hg]60-100May 31, 2025 1:28pmBMI (Body Mass Index)23.3 kg/f1Wznqpznf2024 1:28pmBody mass index (BMI) [Percentile] Per age and sex54.9 %Normal or healthy weight; 5th to 85th percentileOur [facility] Hospital2024 1:28pmBody mass index (BMI) [Percentile] Per age and sex58.1 %Normal or healthy weight; 5th to 85th percentileMymichigan Medical [facility] 2024 7:97bxLqqxuy17 [in_i]June 27, 2025 9:22siDisofo89.92 kgGe[facility] 2024 9:02amHeart Rate68 /got09-872 June 27, 2025 9:02amRespiratory rate16 /vpp46-50Zzoqvqnl 2024 9:02am Oxygen saturation by Pulse apuhrsvj80 %95-100[facility]2024 9:02amBP Hyoahysk413 mm[Hg]100-140[facility]2024 9:02amBP Ngvjwpzra23 mm[Hg]60-100 June 27, 2025 9:02amBMI (Body Mass Index)22.3 kg/b8Fhtrdfiv2024 9:02amBody mass index (BMI) [Percentile] Per age and sex41.3 %Normal or healthy weight; 5th to 85th percentileGeisinger Jersey Shore Hospital 2024 9:02am Advance Directives Advance Directive Response Recorded Date/ Time Advance Directives No May 2:13pm Insurance Providers Guarantor Gerard Larose Address [address] [place] [address]Dlnpfyj Info.Home Phone: Coverage Status Update:2025 Payer Group Member ID Coverage Type Subscriber Relationship to Subscriber Effective Date Expiration Date [employer] Id: [id number] Hartley , P Id: [id number] [address] [place] [address] Home Phone: Email: [email or web address] Encounters Encounter Location(s) Arrival/Admit Date Discharge/Departure Date Discharge/Departure Disposition Provider(s) Departed Physician/ Provider Office Visit -[facility] April 11, 2025 11:35am April 11, 2025 12:14pm Discharged to home care or self care (routine discharge) Elif Funes APRN-SONAR SUBSYSTEM EQUIPMENT OPERATOR-C Discharged Recurring -[facility] April 14, 2025 10:45am April 14, 2025 5:00pm Discharged to home care or self care (routine discharge) Karlie Bianchi MD Departed Physician/ Provider Office Visit -[facility] April 19, 2025 8:41am April 19, 2025 9:30am Discharged to home care or self care (routine discharge) Karlie Bianchi MD Departed Physician/ Provider Office Visit -[facility] May 24, 2025 9:59am May 24, 2025 10:18am Discharged to home care or self care (routine discharge) Karlie Bianchi MD Departed Physician/ Provider Office Visit -[facility] May 31, 2025 1:25pm May 31, 2025 2:15pm Discharged to home care or self care (routine discharge) Harry Goldstein APRN Non-patient / Non-visit -[facility] June 02, 2025 11:45am Harry Goldstein APRNDeparted Physician/Provider Office Visit-[facility] Family Medicine [facility] 2024 8:58amDeceer 2024 9:52amDischarged to home care or self care (routine discharge)Sigrid Hutson DO Recent Diagnosis Onset Date Admit Date Anxiety, generalized Unknown March 152024 11:35am Chronic tension-type headach e, not intractable Unknown April 11, 2025 11:35am Constipation Unknown April 19 8:41am ADHD Unknown May 24 025 9:59am Constipation Unknown May 24 9:59am Thoracic back pain Unknown May 9:59am Cervical pain (neck) Unknown May 242024 9:59am Lumbar back pain Unknown May 24, 2025 9:59am Change in bowel habits Unknown May 31, 2025 1:25pm Constipation Unknown May 31 1:25pm Tenesmus Unknown May 31 1:25pm Abdominal pain Unknown May 31 1:25pm Assessments Diagnosis Onset Date Resolution Status Admit Date Anxiety, generalized chronicSeptember 2024 11:35amChronic tension-type headache, not intractablechronicSeptember 2024 11:35amConstipationacuteOctober 2024 8:41amADHDacuteNovember 2024 9:59amConstipationacuteNovember 2024 9:59amThoracic back painacuteMay 24, 2025 9:59amCervical pain (neck) inactiveMay 24, 2025 9:59amLumbar back paininactiveMay 24, 2025 9:59amChange in bowel habitsacuteNov2024 1:25pmConstipationacute May 31, 2025 1:25pmTenesmusacuteNov2024 1:25pmAbdominal pain inactiveMay 31, 2025 1:25pm Plan of Treatment Author Elif Funes [facility] CenterAuthoredSeptember 2024 11:49amMrTorrey Jean is a 19-year-old male [...] proceed. All questions answered. Author Karlie Bianchi [facility] 2024 10:35amStart low dose linzess. Referral placed to GI. stop lexapro. start strattera. will restart PT soon as above as above Check xrays as ordered. Continue PT. Author Harry Goldstein [facility] 2024 3:06pm- Order colonoscopy for further evaluation of change in bowel habits with increased constipation and associated tenesmus. - Order CT abdomen pelvis with contrast further evaluation of diffuse abdominal aching that started prior to patient's above-mentioned change in bowel habits. - Order CBC to further evaluate patient's white count. - Order CRP and fecal calprotectin to assess for signs of increased inflammation. - Order TSH, T4 to further evaluate for potential underlying endocrine etiology behind patient's new onset constipation. - Order celiac panel to provide further evaluation for potential underlying immunologic etiology behind patient's new onset constipation. - Follow-up office visit post colonoscopy. Author Karlie Bianchi [facility] 2024 8:32amRecommend healthy diet, good water intake. Dulcolax daily and high fiber foods. Future Tests Future scheduled test information is unavailable Pending Tests Test Name Ordered Date Scheduled Date CT abdomen pelvis w con May 31, 2025 2:05 pm XR scoliosis surveyDece2024 9:49amCT abdomen pelvis w conDecember 2024 9:40am Future Visits Future appointment information is unavailable Future Procedures Procedure Name Ordered Date Scheduled Date Calprotectin, Fecal May 31, 2025 2:05pm C-Reactive ProteinNovla [facility] hospital 2024 2:05pm Future Medications Future medication information is unavailable Patient Instructions Patient instructions are unavailable
--- OUTSIDE RECORDS SUMMARY | 2025-06-30 10:11 | XMS_ITS | Clinical Summary ---
Author Organization [facility] Healthcare Address [address] [place] [address] Care Team Providers Care Fairing Man Name Role Phone Karlie Bianchi MD Primary Care Provider [phone] Allergies No known active allergies Medications MedicationSigDispense [...] Last Filed Vital Signs Vital SignReadingTime TakenCommentsBlood Juwmjcwu721/7204 9:00 AM EDT Abkbg6537 9:00 AM EDTTemperature--Respiratory Rate--Oxygen Bijhxyyoab31% 10/26/2024 9:00 AM EDTInhaled Oxygen Concentration--Huwfhb44.6 kg (182 lb) 10/26/2024 9:00 AM EDTHeight--Body Mass Index-- Plan of Treatment Health MaintenanceDue DateLast DoneCommentsCOVID-19 Vaccine ( season) , 04/11/2021Influenza Vaccine (#1), 06/17/2006Pneumococcal Vaccine: Pediatrics (0 to 5 Years) and At-Risk Patients (6 to 64 Years)Aged OutNo longer eligible based on patient's age to complete this topic Insurance Care Teams Team MemberRelationshipSpecialtyStart [place] [address] [place] [phone] PCP - GeneralFamily Medicine09/08/24
--- NOTE | 2025-06-30 10:14 | XR_ITS ---
The [address] [address] Patient Name: ODILIA RICO MRN: [id number] date: 2005 Sex: M Assigned Patient Location: [facility] Current Patient Location: [facility] Accession/Order Number: [id number] Exam Date: 06/30/2025 10:30 Report Date: 06/30/2025 11:07 At the request of: ANNETTE JONES DO Procedure: XR scoliosis survey THORACOLUMBAR SPINE (scoliosis series) - 12 images COMPARISON: 03/11/2025 CLINICAL DATA: Back pain. Multiple upright AP views of the cervical, thoracic and lumbar spine were obtained with and without bending as well as using long cassettes. No acute fractures or bony anomalies are noted. The pedicles are intact. There is very subtle S-shaped thoracolumbar scoliotic curvature. The thoracic dextroscoliosis measures approximately 5 degrees. The lumbar levoscoliosis measures approximately 7 degrees. No soft tissue abnormalities are seen. XR/XR scoliosis survey IMPRESSION: SUBTLE S-SHAPED THORACOLUMBAR SCOLIOTIC CURVATURE. Impression dictated by: Jolly Wolff M.D. 06/30/2025 11:07 AM Dictation Location: [facility] Electronically authenticated by: [id number] Date: 06/30/2025 11:07
== END 2025-06-30 10:07 | disposition home or self-care (01) ==
LOC: RAD 10:08
PROVIDERS: PCP Family Medicine; Visit Provider Family Medicine
DX: M95.8 Other specified acquired deformities of musculoskeletal system (principal); M54.6 Pain in thoracic spine; M41.85 Other forms of scoliosis, thoracolumbar region
CPT/HCPCS: 72082